=== PATIENT | male | born 1990 | race Caucasian/White ===

== ENCOUNTER 2021-07-16 16:43 | Observation (INO) ==
[2021-07-16 17:26] LABS: Appearance Urine Clear (Clear); Bilirubin Urine Negative (Negative); Blood Urine Negative (Negative); Color Urine Yellow; Glucose Urine UA Negative (Negative); Ketones Urine Negative (Negative); Leukocyte Esterase Urine Negative (Negative); Nitrite Urine Negative (Negative); Protein Urine Negative (Negative); Specific Gravity Urine 1.013 (1.000-1.030); Urobilinogen Urine Negative (Negative)
[2021-07-16] MEDS ORDERED: SODIUM CHLORIDE 0.9% 1000ML 1,000 ML IV ONE (17:40)
[2021-07-16 17:51] LABS: Amphetamines+Metham, Urine Neg (Neg); Barbiturates, Urine Neg (Neg); Benzodiazepine, Urine Neg (Neg); Cocaine, Urine Neg (Neg); MDMA (Ecstacy), Urine Neg (Neg); Methadone, Urine Neg (Neg); Opiate, Urine Neg (Neg); Phencyclidine, Urine Neg (Neg)
[2021-07-16 17:57] LABS: Basophils # (auto) 0.02 K/uL (0-0.2); Basophils % (auto) 0.2 %; Eosinophils # (auto) 0.02 K/uL (0-0.5); Eosinophils % (auto) 0.2 %; Hematocrit (blood only) 46.5 % (42-52); Hemoglobin 15.8 g/dL (14.0-18.0); Immature Granulocytes # (auto) 0.01 K/uL (0.00-0.02); Immature Granulocytes % (auto) 0.1 %; Lymphocytes % (auto) 22.5 %; Mean Corpuscular Hemoglobin 28.2 pg (25-34); Mean Corpuscular Volume 82.9 fL (80-100); Mean Platelet Volume 10.6 fL (7.4-10.4); Monocytes % (auto) 5.9 %; Neutrophils # (auto) 7.26 K/uL (1.4-6.5); Neutrophils % (auto) 71.1 %; Platelet Count 298 K/uL (130-400); RDW Coefficient of Variation 13.9 % (11.5-14.5); RDW Standard Deviation 42.5 fL (36.4-46.3); Red Blood Count 5.61 M/uL (4.7-6.1); White Blood Count 10.21 K/uL (4.8-10.8)
[2021-07-16 18:16] LABS: Albumin Level 4.5 gm/dl (3.4-5.0); Calcium 10.2 mg/dl (8.5-10.1); Creatinine Clr Calc Pharmacy 66.9 ml/min; Est GFR (African American) 68.8 ml/min; Est GFR (Non-African American) 59.3 ml/min; Potassium 3.4 mmol/L (3.5-5.1)
[2021-07-16 18:26] LABS: Albumin Globulin Ratio 1.3 (0.9-2); Bilirubin,Total 0.2 mg/dl (0.2-1); Globulin 3.4 gm/dl (2.5-4.0); Thyroid Stimulating Hormone 1.76 uIu/ml (0.300-4.500); Total Protein 7.9 gm/dl (6.4-8.2)
[2021-07-16 18:42] LABS: Acetaminophen < 2 ug/ml (10-30); Lithium 1.3 mmol/L (0.6-1.2); Salicylate 2.4 mg/dl (2.8-20)
--- NOTE | 2021-07-16 18:45 | CT Scan Report ---
CT SCAN OF THE CERVICAL SPINE CLINICAL HISTORY: Head injury. COMPARISON STUDY: No priors. TECHNIQUE: CT scan of the cervical spine is performed from the skull base to the upper thoracic spine . Images are reviewed in the axial, sagittal, and coronal planes. IV contrast was not administered fo r this examination. A dose lowering technique was utilized adhering to the principles of ALARA. CT DOSE: 1424.83 mGy.cm FINDINGS: Skeletal structures: The skeletal structures are well mineralized. There is no evidence of fracture o r subluxation involving the cervical spine. Vertebral body height and alignment are maintained. The odontoid process and lateral masses are intact. The atlantoaxial articulation is preserved. The spino us processes appear intact. Intervertebral discs: The disc spaces are well maintained. Central canal: Widely patent. Soft tissues: The prevertebral and paraspinous soft tissues are within normal limits. Calvarium: The visualized calvarium at the skull base appears intact. Brain parenchyma: Partially visualized brain parenchyma at the skull base is within normal limits. Sinuses and mastoids: The visualized paranasal sinuses are clear. The mastoid air cells are well pneu matized. Lung apices: Clear as visualized. IMPRESSION: There is no evidence of fracture or subluxation involving the cervical spine. ACT 112: Negative or not required by law. Electronically signed by: Leon Potter M.D. 07/16/2021 6:43 PM
--- NOTE | 2021-07-16 18:47 | CT Scan Report ---
CT SCAN OF THE BRAIN WITHOUT IV CONTRAST CLINICAL HISTORY: Head injury. COMPARISON STUDY: No priors. TECHNIQUE: Unenhanced axial CT scan of the brain is performed from the vertex to the skull base. A d ose lowering technique was utilized adhering to the principles of ALARA. The patient was scanned twic e due to motion artifact. FINDINGS: Brain parenchyma: The brain parenchyma is normal in appearance. There is no hemorrhage, mass effect, or evidence of acute territorial ischemia by CT criteria. Armenta-white matter differentiation is preser anali. No extra-axial fluid collection is seen. Ventricles, sulci, cisterns: Normal in configuration. Intracranial vasculature: The visualized intracranial vasculature at the skull base is normal in appe arance. Calvarium: There is no depressed calvarial fracture. Sinuses and mastoids: The visualized paranasal sinuses are clear. The mastoid air cells are well pneu matized. Orbits: The bony orbits are grossly intact. IMPRESSION: No acute intracranial abnormality. ACT 112: Negative or not required by law. Electronically signed by: Leon Potter M.D. 07/16/2021 6:46 PM
--- NOTE | 2021-07-16 18:58 | Emergency Department Note ---
History of Present Illness General Chief complaint: Mental Health Evaluation Stated complaint: SUICIDE IDEATIONS, UNTREATED BIPOLAR Time Seen by Provider: 07/16/21 16:52 Source: patient and family (Girlfriend at bedside) History of Present Illness Provider complaint: Mental health evaluation Maximum Pain Intensity: 3 31-year-old male presents emergency department for mental health evaluation. Patient brought in by his girlfriend. Girlfriend states that the patient told his father that he was going to kill himself and he has been scaring his girlfriend with comments like he is. Patient states he is "having a major mental breakdown." Patient states he wants to kill himself by overdose or by hitting himself and dying. Girlfriend reports that the patient drank Robitussin, rubbing alcohol, and Suboxone today and yesterday. Past Med/Surg History Medical History (Updated 07/16/21 @ 21:34 by Supa Calvillo) Bipolar disorder No pertinent family history Surgical History (Updated 07/16/21 @ 19:43 by Supa Calvillo) No pertinent past surgical history Social History Smoking Status: Current every day smoker Tobacco Type: E-cigarettes / Vaping Feels Safe at Home: Yes Review of Systems A total of 10 systems reviewed and were otherwise negative Physical Exam Vital Signs Vital Signs - 24 hr 07/16/21 16:46 07/16/21 17:04 07/16/21 19:00 Temperature 36.5 C Temperature Source Oral Pulse Rate 125 H Pulse Rate [Finger] 132 H 116 H Pulse Rhythm [Finger] Regular Pulse Strength [Finger] Normal Respiratory Rate 18 18 24 Respiratory Effort / Characteristics Non-Labored Non-Labored Spontaneous Non-Labored Respiratory Depth Normal Normal Normal Respiratory Pattern Regular Regular Regular Blood Pressure 138/89 Blood Pressure [Left Arm] 130/90 137/92 Blood Pressure Mean 105 Blood Pressure Mean [Left Arm] 103 107 Blood Pressure Position Sitting Blood Pressure Position [Left Arm] Sitting Pulse Oximetry 97 98 100 Oxygen Delivery Method Room Air Room Air Room Air Sepsis Recent Fever Within 48 Hours No Sepsis New/Unexplained Change in Mental Status N/A Sepsis Action Taken by Nursing No Action Required 07/16/21 20:00 07/16/21 21:00 Temperature Temperature Source Pulse Rate 112 H 103 H Pulse Rate [Finger] Pulse Rhythm [Finger] Pulse Strength [Finger] Respiratory Rate 19 24 Respiratory Effort / Characteristics Respiratory Depth Respiratory Pattern Blood Pressure 139/105 H 135/89 Blood Pressure [Left Arm] Blood Pressure Mean 116 104 Blood Pressure Mean [Left Arm] Blood Pressure Position Blood Pressure Position [Left Arm] Pulse Oximetry 99 97 Oxygen Delivery Method Sepsis Recent Fever Within 48 Hours Sepsis New/Unexplained Change in Mental Status Sepsis Action Taken by Nursing Physical Exam GENERAL: He is oriented to person, place, and time. He appears well-developed and well-nourished. He does not appear distressed. HENT: Exam performed. - Head: Normocephalic and atraumatic. - Right Ear: External ear normal. No mastoid tenderness. - Left Ear: External ear normal. No mastoid tenderness. - Mouth/Throat: The oropharynx is clear and moist. No trismus in the jaw. No dental abscesses or uvula swelling. No oropharyngeal exudate or tonsillar abscesses. EYES: Conjunctivae and EOM are normal. Pupils are equal, round, and reactive to light. Right eye exhibits no discharge. Left eye exhibits no discharge. No scleral icterus. Horizontal nystagmus present. NECK: Normal range of motion. Neck supple. No JVD present. No spinous process tenderness present. No carotid bruit present. No rigidity. No tracheal deviation and normal range of motion present. No Brudzinski's sign and no Kernig's sign noted. CV: Normal rate, regular rhythm, normal heart sounds and intact distal pulses. There is no peripheral edema. Palpable radial pulses bue. PULM/CHEST: Effort normal and breath sounds normal. No respiratory distress. No stridor. He has no wheezes. He has no rales. - Chest Wall: He exhibits no tenderness. ABD: The abdomen is soft. Bowel sounds are normal. He has no distension. No mass is present. There is no tenderness. There is no rebound, no guarding, no Montanez 's sign and no tenderness at McBurney's point. Rovsig negative. MUSC/SKEL: Normal range of motion. There is no peripheral edema, tenderness or deformity. LYMPH: No cervical adenopathy. NEURO: He is alert and oriented to person, place, and time. He has normal strength. No cranial nerve deficit or sensory deficit. Coordination and gait normal. GCS eye subscore is 4. GCS verbal subscore is 5. GCS motor subscore is 6. Cerebellar tests wnl. SKIN: Skin is warm and dry. He is not diaphoretic. PSYCH: Patient appears depressed and is reporting suicidal ideation. Course Course 1651: The patient was evaluated in room A6. A complete history and physical exam was performed Cardiac monitoring: An order was placed for continuous cardiac monitoring. The monitor shows a rate of 100 with sinus rhythm 2117: Vital signs stable. Labs show an increased osmolar gap. Mildly elevated creatinine of 1.51. [place] mildly elevated at 1.3. Discussed with poison control who recommends supportive care, no fomepizole at this time. Patient will be admitted to the [facility]ist team Dr. Cooper notified. Administered Medications Sodium Chloride (Nss 1000ml) 2,000 mls @ 999 mls/hr IV .Q2H1M ONE Stop: 07/16/21 21:35 Last Admin: 07/16/21 19:42 Dose: 999 mls/hr Documented by: [id number] Discontinued Medications Sodium Chloride (Nss 1000ml) 1,000 mls @ 999 mls/hr IV .Q1H1M ONE Stop: 07/16/21 18:40 Last Infusion: 07/16/21 18:57 Dose: 0 mls/hr Documented by: [id number] Admin: 07/16/21 17:49 Dose: 999 mls/hr Documented by: [id number] Medical Decision Making Laboratory Data Result diagrams: 07/16/21 17:37 07/16/21 17:37 Lab Results 07/16/21 07/16/21 07/16/21 Range/Units 16:55 16:55 17:11 WBC (4.8-10.8) K/uL RBC (4.7-6.1) M/uL Hgb (14.0-18.0) g/dL Hct (42-52) % MCV (80-100) fL MCH (25-34) pg MCHC (32-36) g/dL RDW Std Deviation (36.4-46.3) fL RDW Coeff of Mary (11.5-14.5) % Plt Count (130-400) K/uL MPV (7.4-10.4) fL Immature Gran % (Auto) % Neut % (Auto) % Lymph % (Auto) % [place] % (Auto) % Eos % (Auto) % Baso % (Auto) % Neut # (Auto) (1.4-6.5) K/uL Lymph # (Auto) (1.2-3.4) K/uL [place] # (Auto) (0.11-0.59) K/uL Eos # (Auto) (0-0.5) K/uL Baso # (Auto) (0-0.2) K/uL Immature Gran # (Auto) (0.00-0.02) K/uL Sodium (136-145) mmol/L Potassium (3.5-5.1) mmol/L Chloride (98-107) mmol/L Carbon Dioxide (21-32) mmol/L Anion Gap (3-11) BUN (7-18) mg/dl Creatinine (0.6-1.4) mg/dl Est Cr Clr Drug Dosing ml/min Est GFR ( Amer) ml/min Est GFR (Non-Af Amer) ml/min BUN/Creatinine Ratio (10-20) Glucose (70-99) mg/dl Osmolality (280-300) mOsm/kg Calcium (8.5-10.1) mg/dl Total Bilirubin (0.2-1) mg/dl AST (15-37) U/L ALT (12-78) U/L Alkaline Phosphatase (45-117) U/L Total Protein (6.4-8.2) gm/dl Albumin (3.4-5.0) gm/dl Globulin (2.5-4.0) gm/dl Albumin/Globulin Ratio (0.9-2) TSH (0.300-4.500) uIu/ml Urine Color Yellow Urine Appearance Clear (Clear) Urine pH 7.0 (4.5-7.5) Ur Specific [place] 1.013 (1.000-1.030) Urine Protein Negative (Negative) Urine Glucose (UA) Negative (Negative) Urine Ketones Negative (Negative) Urine Blood Negative (Negative) Urine Nitrite Negative (Negative) Urine Bilirubin Negative (Negative) Urine Urobilinogen Negative (Negative) Ur Leukocyte Esterase Negative (Negative) Salicylates (2.8-20) mg/dl Urine Opiates Screen Neg (Neg) Ur Methadone, Qual Neg (Neg) Acetaminophen (10-30) ug/ml Urine Barbiturates Neg (Neg) Ur Phencyclidine (PCP) Neg (Neg) U Amphetamin/Meth Scrn Neg (Neg) MDMA (Ecstasy) Screen Neg (Neg) U Benzodiazepines Scrn Neg (Neg) [place] (0.6-1.2) mmol/L Ur Cocaine Metabolite Neg (Neg) U Marijuana (THC) Screen Pos H (Neg) Ethyl Alcohol mg/dL (0-3) mg/dl COVID-19 Eval [email or web address] SARS-CoV-2, RNA, NAAT (NEGATIVE) 07/16/21 07/16/21 07/16/21 Range/Units 17:11 17:37 17:37 WBC 10.21 (4.8-10.8) K/uL RBC 5.61 (4.7-6.1) M/uL Hgb 15.8 (14.0-18.0) g/dL Hct 46.5 (42-52) % MCV 82.9 (80-100) fL MCH 28.2 (25-34) pg MCHC 34.0 (32-36) g/dL RDW Std Deviation 42.5 (36.4-46.3) fL RDW Coeff of Mary 13.9 (11.5-14.5) % Plt Count 298 (130-400) K/uL MPV 10.6 H (7.4-10.4) fL Immature Gran % (Auto) 0.1 % Neut % (Auto) 71.1 % Lymph % (Auto) 22.5 % [place] % (Auto) 5.9 % Eos % (Auto) 0.2 % Baso % (Auto) 0.2 % Neut # (Auto) 7.26 H (1.4-6.5) K/uL Lymph # (Auto) 2.30 (1.2-3.4) K/uL [place] # (Auto) 0.60 H (0.11-0.59) K/uL Eos # (Auto) 0.02 (0-0.5) K/uL Baso # (Auto) 0.02 (0-0.2) K/uL Immature Gran # (Auto) 0.01 (0.00-0.02) K/uL Sodium 141 (136-145) mmol/L Potassium 3.4 L (3.5-5.1) mmol/L Chloride 110 H (98-107) mmol/L Carbon Dioxide 25 (21-32) mmol/L Anion Gap 7.0 (3-11) BUN 8 (7-18) mg/dl Creatinine 1.52 H (0.6-1.4) mg/dl Est Cr Clr Drug Dosing 66.9 ml/min Est GFR ( Amer) 68.8 ml/min Est GFR (Non-Af Amer) 59.3 ml/min BUN/Creatinine Ratio 5.0 L (10-20) Glucose 64 L (70-99) mg/dl Osmolality (280-300) mOsm/kg Calcium 10.2 H (8.5-10.1) mg/dl Total Bilirubin 0.2 (0.2-1) mg/dl AST 10 L (15-37) U/L ALT 22 (12-78) U/L Alkaline Phosphatase 59 (45-117) U/L Total Protein 7.9 (6.4-8.2) gm/dl Albumin 4.5 (3.4-5.0) gm/dl Globulin 3.4 (2.5-4.0) gm/dl Albumin/Globulin Ratio 1.3 (0.9-2) TSH 1.760 (0.300-4.500) uIu/ml Urine Color Urine Appearance (Clear) Urine pH (4.5-7.5) Ur Specific [place] (1.000-1.030) Urine Protein (Negative) Urine Glucose (UA) (Negative) Urine Ketones (Negative) Urine Blood (Negative) Urine Nitrite (Negative) Urine Bilirubin (Negative) Urine Urobilinogen (Negative) Ur Leukocyte Esterase (Negative) Salicylates (2.8-20) mg/dl Urine Opiates Screen (Neg) Ur Methadone, Qual (Neg) Acetaminophen (10-30) ug/ml Urine Barbiturates (Neg) Ur Phencyclidine (PCP) (Neg) U Amphetamin/Meth Scrn (Neg) MDMA (Ecstasy) Screen (Neg) U Benzodiazepines Scrn (Neg) [place] (0.6-1.2) mmol/L Ur Cocaine Metabolite (Neg) U Marijuana (THC) Screen (Neg) Ethyl Alcohol mg/dL (0-3) mg/dl COVID-19 Eval Order SARS-CoV-2, RNA, NAAT NEGATIVE (NEGATIVE) 11/01/21 11/01/21 11/01/21 Range/Units 17:37 17:37 17:43 WBC (4.8-10.8) K/uL RBC (4.7-6.1) M/uL Hgb (14.0-18.0) g/dL Hct (42-52) % MCV (80-100) fL MCH (25-34) pg MCHC (32-36) g/dL RDW Std Deviation (36.4-46.3) fL RDW Coeff of Mary (11.5-14.5) % Plt Count (130-400) K/uL MPV (7.4-10.4) fL Immature Gran % (Auto) % Neut % (Auto) % Lymph % (Auto) % [place] % (Auto) % Eos % (Auto) % Baso % (Auto) % Neut # (Auto) (1.4-6.5) K/uL Lymph # (Auto) (1.2-3.4) K/uL [place] # (Auto) (0.11-0.59) K/uL Eos # (Auto) (0-0.5) K/uL Baso # (Auto) (0-0.2) K/uL Immature Gran # (Auto) (0.00-0.02) K/uL Sodium (136-145) mmol/L Potassium (3.5-5.1) mmol/L Chloride (98-107) mmol/L Carbon Dioxide (21-32) mmol/L Anion Gap (3-11) BUN (7-18) mg/dl Creatinine (0.6-1.4) mg/dl Est Cr Clr Drug Dosing ml/min Est GFR ( Amer) ml/min Est GFR (Non-Af Amer) ml/min BUN/Creatinine Ratio (10-20) Glucose (70-99) mg/dl Osmolality 318 H (280-300) mOsm/kg Calcium (8.5-10.1) mg/dl Total Bilirubin (0.2-1) mg/dl AST (15-37) U/L ALT (12-78) U/L Alkaline Phosphatase (45-117) U/L Total Protein (6.4-8.2) gm/dl Albumin (3.4-5.0) gm/dl Globulin (2.5-4.0) gm/dl Albumin/Globulin Ratio (0.9-2) TSH (0.300-4.500) uIu/ml Urine Color Urine Appearance (Clear) Urine pH (4.5-7.5) Ur Specific [place] (1.000-1.030) Urine Protein (Negative) Urine Glucose (UA) (Negative) Urine Ketones (Negative) Urine Blood (Negative) Urine Nitrite (Negative) Urine Bilirubin (Negative) Urine Urobilinogen (Negative) Ur Leukocyte Esterase (Negative) Salicylates 2.4 L (2.8-20) mg/dl Urine Opiates Screen (Neg) Ur Methadone, Qual (Neg) Acetaminophen < 2 L (10-30) ug/ml Urine Barbiturates (Neg) Ur Phencyclidine (PCP) (Neg) U Amphetamin/Meth Scrn (Neg) MDMA (Ecstasy) Screen (Neg) U Benzodiazepines Scrn (Neg) [place] 1.3 H (0.6-1.2) mmol/L Ur Cocaine Metabolite (Neg) U Marijuana (THC) Screen (Neg) Ethyl Alcohol mg/dL < 3.0 (0-3) mg/dl COVID-19 Eval Order SARS-CoV-2, RNA, NAAT (NEGATIVE) Imaging Data Radiologist's Impression: Cervical Spine CT 07/16/21 17:39 CT SCAN OF THE CERVICAL SPINE CLINICAL HISTORY: Head injury. COMPARISON STUDY: No priors. TECHNIQUE: CT scan of the cervical spine is performed from the skull base to the upper thoracic spine. Images are reviewed in the axial, sagittal, and coronal planes. IV contrast was not administered for this examination. A dose lowering technique was utilized adhering to the principles of ALARA. CT DOSE: 1424.83 mGy.cm FINDINGS: Skeletal structures: The skeletal structures are well mineralized. There is no evidence of fracture or subluxation involving the cervical spine. Vertebral body height and alignment are maintained. The odontoid process and lateral masses are intact. The atlantoaxial articulation is preserved. The spinous processes appear intact. Intervertebral discs: The disc spaces are well maintained. Central canal: Widely patent. Soft tissues: The prevertebral and paraspinous soft tissues are within normal limits. Calvarium: The visualized calvarium at the skull base appears intact. Brain parenchyma: Partially visualized brain parenchyma at the skull base is within normal limits. Sinuses and mastoids: The visualized paranasal sinuses are clear. The mastoid air cells are well pneumatized. Lung apices: Clear as visualized. IMPRESSION: There is no evidence of fracture or subluxation involving the cervical spine. ACT 112: Negative or not required by law. Electronically signed by: Leon Potter M.D. 07/16/2021 6:[address] 07/16/21 17:39 CT SCAN OF THE BRAIN WITHOUT IV CONTRAST CLINICAL HISTORY: Head injury. COMPARISON STUDY: No priors. TECHNIQUE: Unenhanced axial CT scan of the brain is performed from the vertex to the skull base. A dose lowering technique was utilized adhering to the principles of ALARA. The patient was scanned twice due to motion artifact. FINDINGS: Brain parenchyma: The brain parenchyma is normal in appearance. There is no hemorrhage, mass effect, or evidence of acute territorial ischemia by CT criteria. [place]ment[place]-white matter differentiation is preserved. No extra-axial fluid collection is seen. Ventricles, sulci, cisterns: Normal in configuration. Intracranial vasculature: The visualized intracranial vasculature at the skull base is normal in appearance. Calvarium: There is no depressed calvarial fracture. Sinuses and mastoids: The visualized paranasal sinuses are clear. The mastoid air cells are well pneumatized. Orbits: The bony orbits are grossly intact. IMPRESSION: No acute intracranial abnormality. ACT 112: Negative or not required by law. Electronically signed by: Leon Potter M.D. 07/16/2021 6:46 PM ECG Data Indication: + toxicologic Rate (beats per minute): 105 Rhythm: + normal sinus ECG Intervals/blocks: + Normal QRS, + Normal MT and + Normal QT-c ECG ST segments: + Normal ST segments MDM Narrative Vital signs stable. Labs show an increased osmolar gap. Mildly elevated creatinine of 1.51. [place] mildly elevated at 1.3. Discussed with poison control who recommends supportive care, no fomepizole at this time. Patient will be admitted to the [facility] hospitalist team Dr. Cooper notified. Impression & Plan Toxic effect of isopropanol, TANIYA (acute kidney injury), Depression with suicidal ideation Discharge Plan Visit Data Chief Complaint: Mental Health Evaluation Stated Complaint: SUICIDE IDEATIONS, UNTREATED BIPOLAR ED Provider: Supa Calvillo Discharge Problem: Toxic effect of isopropanol, TANIYA (acute kidney injury), Depression with suicidal ideation Patient Disposition: Admitted As Inpatient Forms Stand Alone Forms: [facility], Suicide Prevention Resources Referrals Referrals: PCP,NO [Primary Care Provider] -
[2021-07-16] MEDS ORDERED: SODIUM CHLORIDE 0.9% 1000ML 2,000 ML IV ONE (19:35)
[2021-07-16] MEDS ORDERED: SODIUM CHLORIDE 0.9% 1000ML 1,000 ML IV SCH (21:15)
[2021-07-16] MEDS ORDERED: ACETAMINOPHEN 325 MG TAB PO PRN (22:18)
--- NOTE | 2021-07-16 22:18 | History & Physical Report ---
Date of Service July 16, 2021 Assessment & Plan (1) Bipolar disorder: Plan: Raúl is a 31-year-old male with a notable history of bipolar disorder who presented to [facility] following polysubstance overdose with DXM and isopropyl alcohol in the context of suicidal ideations. Polysubstance Overdose In the context of recent suicidal ideations and severe depression/bipolar disorder Patient endorses taking approximately 8 fluid ounces of dextromethorphan as well as approximately 2 ounces of isopropyl alcohol in the morning of 07/16 --> Denies taking any other substances, including extra doses of his medications (such as lithium) Work-up as follows: Tachycardia. No fever. BP, RR normal. Pupils normal. Mild eye twitching noted. No tremor. Hyperreflexia in UE, LE. CBC, electrolytes and glucose normal. TANIYA with Cr 1.52 noted. Serum osmolality elevated to 318 without elevated anion gap LFTs, UA normal UDS significant for mildly elevated lithium level at 1.3, positive THC Cervical spine, head CT negative ECG with sinus tachycardia, otherwise normal. Normal QTc. Add ketone level Poison control contacted by ER physician --> will continue mIVF with LR @ 125 cc / hr. No other therapies indicated at this time No evidence of serotonin syndrome at present, especially in the context of large DXM consumption alongside his BuSpar, duloxetine daily medications. Mon itor. Cyproheptadine as needed. Insetting of isopropyl alcohol ingestion: Glucose normal, blood pressure normal, no evidence of GI distress. No indication for GI decontamination. Psychiatry consulted: Appreciate management insight and need for placement following current hospital stay --> anticipate 201 once medically stable One-to-one, safety tray Repeat CMP, lithium level in AM TANIYA BUN / Cr at 8/1.52 on admission -- suspect secondary to isopropyl alcohol intake, especially in context elevated serum osmolality Status post 2 L IV fluid in the ER. Continue maintenance IV fluids with LR @ 125cc/hr, monitor UOP Thien, UCr, urine microscopy ordered Bipolar disorder Patient currently on lithium, duloxetine, aripiprazole, BuSpar, and doxepin. Dosages reviewed, as per HPI At this time, we will continue holding medications in the setting of DXM overdose and until repeat lithium level in the a.m. returns Appreciate insight into restarting medications Code: Full code Diet: Regular with safety tray PPX: ambulate ad charlie Dispo: MS (2) TANIYA (acute kidney injury): (3) Toxic effect of isopropanol: (4) Depression with suicidal ideation: History of Present Illness Primary Care Provider: ADAM PCP Raúl is a 31-year-old male with a notable history of bipolar disorder who presented to [facility] following polysubstance overdose on 07/16. History is obtained primarily from patient, also corroborated through girlfriend over the phoneafter permission was received from patient. 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 He says that the anxiety and depressed moods that stem from school have been getting worse. Per his girlfriend, he has also been making suicidal threats. Apparently yesterday, he told his dad that if he did not pay rent, he was going to kill himself. This morning, patient told me he awoke and had strong feelings of wanting to . He later consumed what he recalls to be 2 ounces of rubbing alcohol, as well as a full bottle of Robitussinit is unclear whether or not this was a clear suicide attempt versus attempt for dysphoria, per patient's girlfriend. Per patient and his girlfriend, he did not take any additional doses of any of his medications. He became confused and vomited once. Was brought to the ER for further evaluation. Patient's girlfriend reports a long-term history of psychiatric issues as well as polysubstance abuse. Patient previously had alcohol abuse problems, per his girlfriend, as well as history of trying other substances. Patient's girlfriend also said that he may have taken Concerta from her; he does endorse taking amphetamine several days ago. He denies alcohol use over the last month or any other recreational drugs. He does endorse using a vape every day. He reports feeling safe at home. Patient's medication were reviewed with himself and his girlfriend. He takes lithium 450 mg twice daily, duloxetine 60 mg daily, aripiprazole 20 mg daily, BuSpar 10 mg a day, and doxepin 1 mg nightly as needed. He recently received bipolar diagnosis; type unknown. He receives care outside of [place]. He has no other medical conditions per his accounts. No other medications. In the ED, patient was found to be tachycardic but with normal blood pressure, respirations, oxygen saturation, and temperature. I laboratories were significant for an TANIYA (creatinine 1.52), elevated serum osmolality (318), normal LFTs, urine tox with presence of lithium and THC. Head imaging negative. Chest x-ray negative. Poison control was contacted, who recommended aggressive IV hydration. He received 2 L normal saline. Allergies Allergy/AdvReac Type Severity Reaction Status Date / Time No Known Allergies Allergy Verified 07/16/21 22:58 Home Medications Medication Instructions Recorded Confirmed Type aripiprazole 20 mg tablet (Abilify) 20 mg PO DAILY 07/16/21 07/16/21 History buspirone 10 mg tablet 10 mg PO BID 07/16/21 07/16/21 History doxepin 3 mg tablet 0 mg PO HS 07/16/21 07/16/21 History duloxetine 60 mg capsule,delayed 60 mg PO DAILY 07/16/21 07/16/21 History release (Cymbalta) lithium carbonate 450 mg 450 mg PO BID 07/16/21 07/16/21 History tablet,extended release Past Med/Surg History Medical History (Updated 07/16/21 @ 21:34 by Supa Calvillo) Bipolar disorder No pertinent family history Surgical History (Updated 07/16/21 @ 19:43 by Supa Calvillo) No pertinent past surgical history Social History Smoking Status: Current every day smoker Tobacco Type: E-cigarettes / Vaping Do You Dip or Chew Tobacco: No; Tobacco Cessation Education Requested by Patient: Yes Hx Alcohol Use: No Hx Substance Use: Yes Last Used Substance: Hours (ago) Preferred Language: Pashto Communication Ability: Effective Transformation Coach Required: No Beliefs That Will Affect Care: None Current Living Situation: Significant Other Current Living Situation Comment: apartment with girlfriend Feels Safe at Home: Yes Safety Concerns: Feels Safe At This Time Assistive Devices: None Review of Systems Review of Systems: as per HPI Physical Exam Physical Exam: General: Tired appearing 31-year-old male who is lying back in his hospital bed, relaxed, upon my arrival. He is freely conversive, alert and oriented. HEENT: NCAT. Eyes - Sclera are white, anicteric, and without injection. PERRL. EOMs display full ROM bilaterally. Mouth - MMM with no tonsillar edema or exudates. Neck - supple and without LAD. Cardiac: Normal rate and regular rhythm; S1 and S2 present with no murmurs, rubs, or gallops. Pulmonary: Good respiratory effort with symmetric expansion of the chest. No use of accessory muscles. Lungs were clear to auscultation bilaterally with no crackles or wheezes. Abdominal: Normoactive bowel sounds. Abdomen was soft, nondistended, and non-t brian to palpation. Extremities: Upper and lower extremities are warm and well perfused. Capillary refill assessed in UE was < 3 sec. Psych: Well-developed, well-nourished. Behavior is cooperative. He is noted to be flickering his eyes frequently. Speech rate, rhythm, and tone is normal. Speech content is somewhat limited and guarded. Endorses feelings of suicidal ideation. Unable to assess insight or judgment at this time. Neuro: - Cranial Nerves: CN I, IX, and X - not assessed. II - PERRL. III/IV/ - EOMs WNL. No nystagmus. Frequent twitching noted. V - Facial sensation in tact in all three divisions; jaw opening WNL. VII - Patient is able to smile symmetrically and keep eyes close against resistance. IX - Patient is able shrug shoulders against resistance. XI - Soft palate raises equally and appropriately while saying "ah." XII - patient is able to stick out tongue and deviate from [id number] appropriately. - Motor: UE - Finger, wrist, elbow, and shoulder strength is 5/5 bilaterally. LE - Hip, knee, and ankle strength is 5/5 bilaterally. - Sensation: UE and LE sensation to light touch is grossly intact bilaterally. - Reflexes - Biceps 3+ b/l; patellar 3+ b/l - [id number]-[id number]: WNL b/l. No dysmetria. [id number]; WNL b/l. Results & Data Results & Data ([facility]) Vital Signs (Past 12 Hours) Vital Signs Temp Pulse Pulse Resp BP BP Pulse Ox 07/16/21 21:00 103 H 24 135/89 97 07/16/21 20:00 112 H 19 139/105 H 99 07/16/21 19:00 116 H 24 137/92 100 07/16/21 17:04 132 H 18 130/90 98 07/16/21 16:46 36.5 C 125 H 18 138/89 97 Supervising Physician Co-Signing Physician Notes Patient seen and examined, chart reviewed, case discussed with Dr. Godfrey and I agree with his assessment and plan as documented above. In brief, patient is a 31yo male with recently diagnosed Bipolar disorder, polysubstance abuse history presenting after suicidal gesture with ingestion of rubbing alcohol and Robitussin. Patient states he has been dealing with mental health issues since adolescence. He was initially diagnosed as depression and was managed on several medications in the past - he states that he has been on "almost every SSRI out there". He states he has never had a typical episode of petey with racing thoughts, pressured speech, decreased need for sleep and impulsivity, however, he does admit to perseverating and becoming fixated on certain things and thoughts. He is on [place]. Uncertain if he has been trialed on other mood stabilizers in the past. Patient follows with DA Brown from [place], [place] He presents today after suicidal gesture - ingestion of rubbing alcohol and Robitussin. States that he truly wanted to end his life with these measures. Girlfriend at bedside states that the action was being "used as a bargaining chip" to get what he wanted. Patient disagreed. Denies prior history of suicidal gestures. No VH/AH Patient resting comfortably on exam, HD stable, non-toxic in appearance. Easily arousable, answers questions appropriately. Appears anxious Skin -intact, no rash HEENT - NC/AT, PERRL, MMM, Neck supple Heart - +S1/S2, regular, tachycardic, no m/r/g Lungs - CTA Abd - +BS, soft, NT/ND Ext - No edema Labs and images reviewed Serum Muk=909, Osmolar gap elevated at 30 Assessment/Plan - 31yo male with recently diagnosed Bipolar disorder presenting with suicide attempt, ingestion of isopropyl alcohol and Robitussin. Patient with osmolar gap which is most likely explained by isopropyl alcohol ingestion. Salicylates detectable at 2.4, [place]-1.3 Afebrile, HD stable, no evidence of serotonin syndrome at this time Poison control center contacted Patient verbally contracted for safety while in the hospital -IVF hydration with LR -Repeat labs in AM to include CBC, CMP, LFTs, [place] level, VBG and serum osmolality -Will hold on empiric fomipazole for now given history of isopropyl alcohol ingestion - doubt ingestion of other alcohols -Obtain outpatient records -One to one observation -Psychiatry consultation appreciated -REmainder of plan as above Resident Activity Tracking Resident Involvement: Resident Care Provided Care Provided: Adult [facility] Medicine (1) Toxic effect of isopropanol Encounter type: initial encounter Injury intent: intentional self-harm Qualified Code(s): T51.2X2A - Toxic effect of 2-Propanol, intentional self-harm, initial encounter
[2021-07-16 23:53] LABS: Creatinine Urine Random 79.1 mg/dl
[2021-07-17 00:28] LABS: Bacteria Urine Automated Negative (Negative); RBC Urine Automated 0-4 /hpf (0-4)
[2021-07-17] MEDS: LACTATED RINGER'S 1,000 ML IV SCH ×3 (01:20→14:21)
--- NOTE | 2021-07-17 06:26 | Billing Data ---
Date of Service July 16, 2021 Coding Level of Care Code INT OBSERVATION CARE 50M LVL 2
[2021-07-17 07:16] LABS: Base Excess VBG 1.3 mEq/L; Oxygen Saturation VBG 93.1 %; pH VBG 7.4 (7.36-7.41)
[2021-07-17 07:22] LABS: Basophils # (auto) 0.04 K/uL (0-0.2); Basophils % (auto) 0.3 %; Eosinophils # (auto) 0.17 K/uL (0-0.5); Eosinophils % (auto) 1.3 %; Hematocrit (blood only) 39.4 % (42-52); Hemoglobin 12.9 g/dL (14.0-18.0); Immature Granulocytes # (auto) 0.03 K/uL (0.00-0.02); Immature Granulocytes % (auto) 0.2 %; Lymphocytes # (auto) 3.22 K/uL (1.2-3.4); Mean Corpuscular Hemoglobin 27.7 pg (25-34); Mean Corpuscular Hgb Conc 32.7 g/dL (32-36); Mean Corpuscular Volume 84.7 fL (80-100); Mean Platelet Volume 10.5 fL (7.4-10.4); Monocytes # (auto) 0.99 K/uL (0.11-0.59); Monocytes % (auto) 7.7 %; Neutrophils # (auto) 8.42 K/uL (1.4-6.5); Neutrophils % (auto) 65.5 %; Platelet Count 238 K/uL (130-400); RDW Coefficient of Variation 14.1 % (11.5-14.5); RDW Standard Deviation 43.5 fL (36.4-46.3); Red Blood Count 4.65 M/uL (4.7-6.1); White Blood Count 12.87 K/uL (4.8-10.8)
[2021-07-17] MEDS ORDERED: FLUARIX QUADRIVALENT 0.5 ML SYR IM ONE (08:00)
[2021-07-17 08:05] LABS: Albumin Globulin Ratio 1.1 (0.9-2); BUN Creatinine Ratio 5.2 (10-20); Bilirubin,Total 0.4 mg/dl (0.2-1); Calcium 8.9 mg/dl (8.5-10.1); Creatinine Clr Calc Pharmacy 87.6 ml/min; Est GFR (African American) 95.4 ml/min; Est GFR (Non-African American) 82.3 ml/min; Globulin 2.7 gm/dl (2.5-4.0); Total Protein 5.7 gm/dl (6.4-8.2)
--- NOTE | 2021-07-17 08:54 | Electrocardiogram Report ---
Test Reason : Blood Pressure : / mmHG Vent. Rate : 105 BPM Atrial Rate : 105 BPM P-R Int : 136 ms QRS Dur : 090 ms QT Int : 332 ms P-R-T Axes : 064 044 063 degrees QTc Int : 438 ms Sinus tachycardia Otherwise normal ECG No previous ECGs available Confirmed by Elmer Baxter ([id number]) on 07/17/2021 8:54:10 AM Referred By: REFERRED SELF Confirmed By:Mono Baxter
[2021-07-17] MEDS: NICOTINE 14 MG/24 HR PATCH TD SCH (12:28)
[2021-07-17] MEDS: DULoxetine HCL 60 MG CAP PO SCH (12:28)
--- NOTE | 2021-07-17 14:26 | Psychiatric Consultation ---
Date of Consultation July 17, 2021 Impression / Recommendations Impression The patient is a 31 year old man with a history of BPAD, depression, polysubstance use and one prior psychiatric hospitalization (1.5 years ago) who was admitted for a suicide attempt via ingestion of DXM and isopropyl alcohol. Diagnostically consistent with unspecified depression differential includes MDD versus bipolar depression vs substance-induced depression. He likely also meets criteria for substance use disorder given frequent use of polysubstances to cope with his emotional distress. In terms of risk he is deemed to be at high acute risk of harm to self given mood symptoms, suicide attempt via lethal potential, psychosocial stressors and substance use. He is currently voluntary for psychiatric hospitalization once he is medically cleared. He would benefit most from a dual diagnosis psychiatric hospitalization where he can receive concurrent treatment for both his depression as well his substance use. Currently he is deemed unstable and requires psychiatric hospitalization for diagnostic clarification, safety and stabilization, medication management and development of further coping skills. In terms of his BUDGET EXAMINER medications-the main concern would be serotonin syndrome with restarting cymbalta/buspar/doxepin but it appears he is showing no symptoms of SS and tolerated cymbalta being restarted today. Given that his renal function seems to have improved and lithium level is within therapeutic range it is appropriate to restart lithium at BUDGET EXAMINER dose. Also reasonable to restart his abilify and buspar tomorrow if he remains stable from a medical perspective. (1) Polysubstance overdose: (2) Depression with suicidal ideation: (3) Substance use: -1:1 for safety, may not leave AMA without psychiatric clearance -Voluntary for psychiatric treatment once medically cleared -Would benefit most from dual-diagnosis inpatient program -Ok to restart BUDGET EXAMINER medications tomorrow with exception of doxepin (continue to hold this given caution to restart too many serotoninergic medications in setting of recent DXM ingestion): [place] 450 mg twice daily Duloxetine 60 mg daily Aripiprazole 20 mg daily (restart tomorrow) BuSpar 10 mg twice daily (restart tomorrow) Risk Factors Assessment Do You Have Access To A Gun?: No Psych History Identifying Data 31 yo man with a history of persistent depression, BPAD and polysubstance use who was admitted medically following a suicide attempt via ingestion of DXM and isopropyl alcohol. Psychiatry was consulted for risk assessment, disposition planning and medication recommendations. Chief Complaint "I just need to the numb the pain". History of Present Illness Raúl reports worsening depression over the last two weeks in the context of increased stress from school and relationship stress. He endorses a long history of depression and history of petey with depression that tends to predominant and "comes in waves". Endorses depressive symptoms of poor sleep, low energy, low mood, decreased concentration, decreased motivation, anhedonia, self-harm via hitting himself in the head and SI which emerged in the context of this. He feels his attempt was very impulsive and he sought help right away and is glad to be alive. He would like psychiatric inpatient treatment as he feels he needs help to treat the depression. Pertinent psych ROS notable for: hx petey, no hx prior suicide attempts, hx multiple past medication trials ("everything"), hx trauma, no access to guns. Endorses significant polysubstance use, noting that he will use whatever is available to help "numb the pain" he feels in his brain. He currently takes lithium 450mg BID, cymbalta 60 mg qd, abilify 20 mg qd, doxepin 2 mg qhs prn and buspar 10mg bid which is managed by his psychiatric provider in [place], [place]. he also sees a therapist twice a month via teletherapy. Reports he has been taking all of his medications regularly. Further history per psych liason note 07/17/21: "Patient is a 31 year old single male, orginally from [facility]. Has been living with his girlfriend in [place]. States he has been doing well, until his girlfriend's mental health took a turn, which snowballed into how he was feeling. States he was recently diagnoses with bipolar and has been upset. States he just started seeing a psychiatrist, DA Booth, at [facility], patient's next appointment with her is on 08/16 at 3:30. He is also established with a therapist, Marion, and his next appointment with her is 07/26 at 9:30, both appointments are by phone. States he has been prescribed lithium 450 mg bid, doxepine 60 mg daily, abilfy 20 mg daily, and buspar 10 mg bid. States he usually remembers to take his medications. When asked patient's previous medications, he states "I'm gonna say none, so this can be over." Explained the reason for asking questions and obtaining history, he replies, "I've been on everything under the sun, every SSRI." States he is tired and is feeling really low, reports interrupted non-restorative sleep, even with sleep, is always tired. Decreased desire in any activities, feels depressed and hopeless, increased appetite. States he feels bad about his life every day, struggles with concentration. States he has been thinking of suicide, but didn't have a concrete plan until yesterday, when he acted on his impulsive thoughts to overdose. States this was his only suicide attempt, has been to [facility] 1.5 years ago. States he has been hitting himself in the head for the last week, does not believe he has done it before, however retracted the statement, being unsure. Both mother and father have a history of depression, father was an alcoholic and have addiction issues. Denies any family history of suicide attempts. Had a younger brother killed in a MVA 6 years ago. (his brother was 20). 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 Currently he reports straight A's, however he said there is a test in 4 days which he is not prepared for and knows he "will flunk out of college". Eye contact is intermittent, appears anxious and minimally cooperative. Reports a long history of substance abuse, admits to going to rehab. 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 Denies any substance use in the last month, but admits to drinking rubbing alcohol and taking cough medicine with intent to kill self. Patient is willing for admission for inpatient psych once medically cleared." Past Psychiatric History Previous Psych History: see HPI Previous Psych Admissions: 1.5 years ago at [facility] Do You Have Access To A Gun?: No History of Previous Suicide Attempt: No Past Medication Trials: many including multiple SSRIs Allergies Allergy/AdvReac Type Severity Reaction Status Date / Time No Known Allergies Allergy Unverified 07/17/21 07:45 Home Medications Medication Instructions Recorded Confirmed Type duloxetine 60 mg capsule,delayed 60 mg PO QAM 02/11/21 02/11/21 History release (Cymbalta) lithium carbonate 300 mg capsule 300 mg PO BID 02/11/21 02/11/21 History mirtazapine 15 mg tablet (Remeron) 15 mg PO HS 02/11/21 02/11/21 History aripiprazole 20 mg tablet (Abilify) 20 mg PO DAILY 07/16/21 07/16/21 History buspirone 10 mg tablet 10 mg PO BID 07/16/21 07/16/21 History doxepin 3 mg tablet 0 mg PO HS 07/16/21 07/16/21 History duloxetine 60 mg capsule,delayed 60 mg PO DAILY 07/16/21 07/16/21 History release (Cymbalta) lithium carbonate 450 mg 450 mg PO BID 07/16/21 07/16/21 History tablet,extended release Family History depression in family Substance Abuse History see HPI Personal History Employment Status: Student Beliefs That Will Affect Care: None Patient History Medical History Bipolar disorder Bowel obstruction Meckel's diverticulum perforation No pertinent family history Surgical History No pertinent past surgical history Social History Smoking Status: Current every day smoker Tobacco Type: E-cigarettes / Vaping Hx Alcohol Use: No Hx Substance Use: Yes Last Used Substance: Hours (ago) Preferred Language: Yoruba Communication Ability: Effective Nursing Staffing Coordinator Required: No Beliefs That Will Affect Care: None Current Living Situation: Significant Other Current Living Situation Comment: apartment with girlfriend Feels Safe at Home: Yes Assistive Devices: None Physical Exam Psychiatric: Orientation: alert and oriented x 3 Apperance: appropriately dressed and appropriately groomed Eye Contact: good eye contact Motor Behavior: no abnormal motor movements Speech: normal rate/rhythm/volume of speech Affect: + constricted affect Mood: + depressed mood, + anxious mood and + irritable mood Thought Process: goal directed thought process Thought Content: reality based without delusions Suicidal Thoughts: denies suicidal thoughts Homicidal Thoughts: denies homicidal thoughts Hallucinations: no auditory hallucinations and no visual hallucinations Cognition: recent memory grossly intact, remote memory grossly intact, attention grossly intact and language grossly intact Estimated Intelligence: consistent with education level Insight: + fair insight Judgement: + fair judgement Vital Signs (Past 24 Hours): Last Vital Signs Temp 36.7 C 07/17/21 07:57 Pulse 69 07/17/21 07:57 Resp 16 07/17/21 07:57 BP 124/80 07/17/21 07:57 Pulse Ox 96 07/17/21 07:57 Review of Systems All systems reviewed & are unremarkable except as noted in HPI & below Results & Data (PSY) Laboratory Results elevated WBC, low RBC, Cr nml, Li trough 0.4 Diagnostic Findings normal QTc on EKG Medications Administered Acetaminophen (Acetaminophen 325 Mg Tab) 650 mg PO Q4H PRN PRN Reason: pain/fever Stop: 08/15/21 22:17 Last Admin: 07/17/21 01:19 Dose: 650 mg Documented by: [id number] Duloxetine HCl (Duloxetine Hcl 60 Mg Cap) 60 mg PO QAM [facility] Stop: 08/16/21 11:59 Last Admin: 07/17/21 12:28 Dose: 60 mg Documented by: [id number] Lactated Ringer's (Lr) 1,000 mls @ 75 mls/hr IV .[id number] ANCELMO Stop: 07/17/21 15:10 Last Admin: 07/17/21 14:21 Dose: 75 mls/hr Documented by: [id number] Infusion: 07/17/21 10:12 Dose: 0 mls/hr Documented by: [id number] Admin: 07/17/21 04:39 Dose: Not Given Documented by: [id number] Admin: 07/17/21 01:20 Dose: 125 mls/hr Documented by: [id number] Nicotine (Nicotine 14 Mg/24 Hr Patch) 14 mg TD QAM ANCELMO Stop: 08/16/21 11:59 Last Admin: 07/17/21 12:28 Dose: 14 mg Documented by: [id number] Coding Level of Care Code 99644 Inpt Consult Level 3 Diagnoses Polysubstance overdose T50.901A Depression with suicidal ideation F32.A; R45.851 Substance use F19.90 Time Spent (min) 35
--- NOTE | 2021-07-17 14:48 | Hospitalist Progress Note ---
Date of Service July 17, 2021 Assessment & Plan (1) Polysubstance overdose: Plan: Polysubstance ingestion -Impulsive suicide attempt with Robitussin/rubbing alcohol ingestion precipitated by burgeoning stress, existent bipolar disorder -Medical workup- serum osmolality elevated to 318 without anion gap, Cr 1.52, otherwise neg UA, BMP, CBC, EKG, CT head, -No concern for serotonin syndrome/malignant hyperthermia at this time with reassuring vitals and benign physical exam -Continue IVF, rate down to 75 ccs/hr -Currently on 1:1, soft tray discontinued -Appreciate psychiatric recommendations -No active or passive SI at this time - Medically stable TANIYA -Cr 1.52 on admission, likely due to alcohol and Robitussin ingestion -S/p IV repletion in ED and mIVF, now 1.16 -Largely resolved, encourage PO fluid intake -Will d/c IVF tonight Bipolar disorder -Med regimen includes lithium, duloxetine, Abilify, buspar, doxepin PRN for sleep -[place] 450 mg BID restarted today given low lithium level from admission -Duloxetine 60 mg daily restarted today given low concern for serotonin syndrome at this time -Will hold other psychotropic medications pending transfer to psychiatric unit and evaluation by psychiatry Code: Full code Diet: Regular PPX: ambulate ad charlie Dispo: Discharge to psych inpatient Admission and Anticipated Discharge Date Admission Date: July 16, 2021 Supervising Physician Co-Signing Physician Notes Patient seen and examined with PGY 1, Dr. Queen. Agree with history, exam findings, assessment and plan of care as outlined. Raúl is a 31-year-old male with history of bipolar disorder admitted following polysubstance ingestion. Still having significant anxiety and depression. There are multiple stressors related to this. Vital signs and nursing notes reviewed Well-appearing. Nontoxic. Heart with a regular rate and rhythm. No murmur. Lungs are clear to auscultation in all lung [place]. Mood and affect are congruent. He is anxious. Labs and imaging reviewed. 1. Polysubstance ingestion. No concern for serotonin syndrome or malignant hyperthermia. He is stable from a medical perspective for transfer to psychiatric facility or unit. 2. TANIYA. Improved after IV fluids. 3. Bipolar disorder. We have restarted his lithium and his duloxetine. We can restart his Abilify and BuSpar tomorrow. Hold off on restarting doxepin for now. Disposition: He is medically stable for transfer to psychiatric facility or unit. Discussed case with psychiatric liaison and psychiatric physician. Subjective Pt feels physically well, denying any acute complaints at this time. Still endorsing significant anxiety and depression regarding school- has a test in 4 days and concerned he'll fail out of his program. Open to psychiatric admission, inquired as to whether he can receive accommodations after discharge so that his career isn't disadvantaged. Has reflected on his suicide attempt and states it was impulsive and he does not wish to take his own life for fear of devastating his loved ones. Review of Systems Review of Systems: +Anxiety, depression Physical Exam Physical Exam: General: well-appearing male laying comfortably in bed HEENT: anicteric sclera, moist mucous membranes, EOMI Cardiac: RRR, normal S1 S2, no murmurs noted Resp: CTAB, unlabored respirations Abd: soft, nondistended, nontender Skin: warm and dry Neuro: grossly alert and oriented without focal motor deficits Psych: normal mood and affect, +anxiety, no SI/HI Results & Data Results & Data ([facility]) Vital Signs (Past 12 Hours) Vital Signs Temp Pulse Resp BP Pulse Ox 07/17/21 07:57 36.7 C 69 16 124/80 96 Resident Activity Tracking Resident Involvement: Resident Care Provided Care Provided: Adult Hospital Medicine
[2021-07-17] MEDS: LITHIUM CARBONATE 450 MG TABCR PO SCH (20:19)
[2021-07-18] MEDS ORDERED: DULoxetine HCL 60 MG CAP PO SCH (09:00)
[2021-07-18] MEDS ORDERED: busPIRone 5 MG TAB PO SCH (09:00)
[2021-07-18] MEDS ORDERED: ARIPiprazole 10 MG TAB PO SCH (09:00)
[2021-07-18] MEDS ORDERED: NICOTINE 14 MG/24 HR PATCH TD SCH (09:00)
[2021-07-18] MEDS ORDERED: hydrOXYzine HCl 25 MG TAB PO PRN (09:17)
[2021-07-18 09:19] LABS: Hematocrit (blood only) 44.3 % (42-52); Hemoglobin 14.6 g/dL (14.0-18.0); Mean Corpuscular Hemoglobin 27.7 pg (25-34); Mean Corpuscular Volume 83.9 fL (80-100); Mean Platelet Volume 10.7 fL (7.4-10.4); Platelet Count 273 K/uL (130-400); RDW Coefficient of Variation 13.8 % (11.5-14.5); RDW Standard Deviation 42.4 fL (36.4-46.3); Red Blood Count 5.28 M/uL (4.7-6.1); White Blood Count 9.68 K/uL (4.8-10.8)
[2021-07-18 09:42] LABS: Calcium 9.6 mg/dl (8.5-10.1); Creatinine Clr Calc Pharmacy 114.2 ml/min; Est GFR (African American) 130.2 ml/min; Est GFR (Non-African American) 112.3 ml/min; Potassium 4.1 mmol/L (3.5-5.1)
[2021-07-18] MEDS: DULoxetine HCL 60 MG CAP PO SCH (10:05)
[2021-07-18] MEDS: NICOTINE 14 MG/24 HR PATCH TD SCH (10:05)
[2021-07-18] MEDS: LITHIUM CARBONATE 450 MG TABCR PO SCH (10:06)
--- NOTE | 2021-07-18 12:17 | Hospitalist Progress Note ---
Date of Service July 18, 2021 Assessment & Plan (1) Polysubstance overdose: Plan: Polysubstance ingestion -Impulsive suicide attempt with Robitussin/rubbing alcohol ingestion precipitated by burgeoning stress, existent bipolar disorder -Medical workup- serum osmolality elevated to 318 without anion gap, Cr 1.52, otherwise neg UA, BMP, CBC, EKG, CT head, -No concern for serotonin syndrome/malignant hyperthermia at this time with reassuring vitals and benign physical exam -Currently on 1:1, soft tray discontinued. No active or passive SI at this time -Medically stable for discharge to psych -Psychiatry consult: recommended admission after medical stabilization. Transfer to inpatient psych held up today due to minor elevation of WBC from 07/17 labs but today's CBC and BMP entirely normal. Seeking placement for psych admission, likely transfer tomorrow. TANIYA -Cr 1.52 on admission, likely due to alcohol and Robitussin ingestion -S/p IV repletion in ED and mIVF, now 1.16 -Resolved, encourage PO fluid intake Bipolar disorder -Med regimen includes lithium, duloxetine, Abilify, buspar, doxepin PRN for sleep -[place] 450 mg BID restarted yesterday given low lithium level from admission -Duloxetine 60 mg daily restarted yesterday given low concern for serotonin syndrome at this time -Abilify and buspar restarted today per psych, still holding doxepin Code: Full code Diet: Regular PPX: ambulate ad charlie Dispo: Discharge to psych inpatient likely tomorrow Admission and Anticipated Discharge Date Admission Date: July 16, 2021 Supervising Physician Co-Signing Physician Notes Patient seen and examined independently of PGY 1, Dr. Queen. Agree with history, exam findings, assessment and plan of care as outlined. Raúl is a 31-year-old male with history of bipolar disorder admitted following polysubstance ingestion. Still having significant anxiety today. He is already on Buspar and does not feel that this was helpful for his anxiety. He has used hydroxyzine as needed in the past which was somewhat helpful. There are multiple stressors related to this. Vital signs and nursing notes reviewed Well-appearing. Nontoxic. Mood and affect are congruent. He is anxious. Labs and imaging reviewed. 1. Polysubstance ingestion. No concern for serotonin syndrome or malignant hyperthermia. He is stable from a medical perspective for transfer to psychiatric facility or unit. 2. TANIYA. Improved after IV fluids. 3. Bipolar disorder. We have restarted his lithium and his duloxetine yesterda y. Restarted Abilify and BuSpar tomorrow. Hold off on restarting doxepin for now. Hydroxyzine PRN for anxiety. Disposition: He is medically stable for transfer to psychiatric facility or unit. Bed available at [facility] in [place]. 201 signed. Subjective Pt still feeling physically well, also reports some minor improvement in his anxiety and depression. Has been reflecting more on the events of his hospitalization, still willing for psychiatric admission. Review of Systems Review of Systems: +Less anxiety and depression Physical Exam Physical Exam: General: well-appearing male laying comfortably in bed HEENT: anicteric sclera, moist mucous membranes, EOMI Cardiac: RRR, normal S1 S2, no murmurs noted Resp: CTAB, unlabored respirations Abd: soft, nondistended, nontender Skin: warm and dry Neuro: grossly alert and oriented without focal motor deficits Psych: normal mood and affect, +anxiety, no SI/HI Results & Data Results & Data ([facility]) Vital Signs (Past 12 Hours) Vital Signs Temp Pulse Resp BP Pulse Ox 07/18/21 00:10 36.5 C 78 18 122/80 97 Resident Activity Tracking Resident Involvement: Resident Care Provided Care Provided: Adult Hospital Medicine
--- NOTE | 2021-07-18 17:19 | Discharge Summary ---
Date of Service July 18, 2021 Admission HPI Per Admitting Provider Raúl is a 31-year-old male with a notable history of bipolar disorder who presented to [facility] following polysubstance overdose on 07/16. History is obtained primarily from patient, also corroborated through girlfriend over the phoneafter permission was received from patient. 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 He says that the anxiety and depressed moods that stem from school have been getting worse. Per his girlfriend, he has also been making suicidal threats. Apparently yesterday, he told his dad that if he did not pay rent, he was going to kill himself. This morning, patient told me he awoke and had strong feelings of wanting to . He later consumed what he recalls to be 2 ounces of rubbing alcohol, as well as a full bottle of Robitussinit is unclear whether or not this was a clear suicide attempt versus attempt for dysphoria, per patient's girlfriend. Per patient and his girlfriend, he did not take any additional doses of any of his medications. He became confused and vomited once. Was brought to the ER for further evaluation. Patient's girlfriend reports a long-term history of psychiatric issues as well as polysubstance abuse. Patient previously had alcohol abuse problems, per his girlfriend, as well as history of trying other substances. Patient's girlfriend also said that he may have taken Concerta from her; he does endorse taking amphetamine several days ago. He denies alcohol use over the last month or any other recreational drugs. He does endorse using a vape every day. He reports feeling safe at home. Patient's medication were reviewed with himself and his girlfriend. He takes lithium 450 mg twice daily, duloxetine 60 mg daily, aripiprazole 20 mg daily, BuSpar 10 mg a day, and doxepin 1 mg nightly as needed. He recently received bipolar diagnosis; type unknown. He receives care outside of [place]. He has no other medical conditions per his accounts. No other medications. In the ED, patient was found to be tachycardic but with normal blood pressure, respirations, oxygen saturation, and temperature. I laboratories were significant for an TANIYA (creatinine 1.52), elevated serum osmolality (318), normal LFTs, urine tox with presence of lithium and THC. Head imaging negative. Chest x-ray negative. Poison control was contacted, who recommended aggressive IV hydration. He received 2 L normal saline. Admission Exam Per Admitting Provider General: Tired appearing 31-year-old male who is lying back in his hospital bed, relaxed, upon my arrival. He is freely conversive, alert and oriented. HEENT: NCAT. Eyes - Sclera are white, anicteric, and without injection. PERRL. EOMs display full ROM bilaterally. Mouth - MMM with no tonsillar edema or exudates. Neck - supple and without LAD. Cardiac: Normal rate and regular rhythm; S1 and S2 present with no murmurs, rubs, or gallops. Pulmonary: Good respiratory effort with symmetric expansion of the chest. No use of accessory muscles. Lungs were clear to auscultation bilaterally with no crackles or wheezes. Abdominal: Normoactive bowel sounds. Abdomen was soft, nondistended, and non- tender to palpation. Extremities: Upper and lower extremities are warm and well perfused. Capillary refill assessed in UE was < 3 sec. Psych: Well-developed, well-nourished. Behavior is cooperative. He is noted to be flickering his eyes frequently. Speech rate, rhythm, and tone is normal. Speech content is somewhat limited and guarded. Endorses feelings of suicidal ideation. Unable to assess insight or judgment at this time. Neuro: - Cranial Nerves: CN I, IX, and X - not assessed. II - PERRL. III/IV/ - EOMs WNL. No nystagmus.Frequent twitching noted.V - Facial sensation in tact in all three divisions; jaw opening WNL. VII - Patient is able to smile symmetrically and keep eyes close against resistance. IX - Patient is able shrug shoulders against resistance. XI - Soft palate raises equally and appropriately while saying "ah." XII - patient is able to stick out tongue and deviate from [id number] appropriately. - Motor: UE - Finger, wrist, elbow, and shoulder strength is 5/5 bilaterally. LE - Hip, knee, and ankle strength is 5/5 bilaterally. - Sensation: UE and LE sensation to light touch is grossly intact bilaterally. - Reflexes - Biceps 3+ b/l; patellar 3+ b/l - [id number]: WNL b/l. No dysmetria. [id number]; WNL b/l. Principal Diagnosis Suicide attempt via polysubstance ingestion Discharge Exam General: well-appearing male laying comfortably in bed HEENT: anicteric sclera, moist mucous membranes, EOMI Cardiac: RRR, normal S1 S2, no murmurs noted Resp: CTAB, unlabored respirations Abd: soft, nondistended, nontender Skin: warm and dry Neuro: grossly alert and oriented without focal motor deficits Psych: normal mood and affect, +anxiety, no SI/HI Discharge Data Allergies Allergy/AdvReac Type Severity Reaction Status Date / Time No Known Allergies Allergy Unverified 07/17/21 07:45 Consultations 07/16/21 21:07 ED Decision to Admit Stat 07/16/21 22:18 Consult Psychiatry Routine Ordered Studies 07/16/21 17:39 CT cervical spine wo con Stat CT head/brain wo con Stat Hospital Course (1) Polysubstance overdose: Admitted on 07/16, discharged on 07/18 Polysubstance ingestion -Impulsive suicide attempt with Robitussin/rubbing alcohol ingestion precipitated by burgeoning stress, existent bipolar disorder -Medical workup- serum osmolality elevated to 318 without anion gap, Cr 1.52, otherwise neg UA, BMP, CBC, EKG, CT head, -No concern for serotonin syndrome/malignant hyperthermia at this time with reassuring vitals and benign physical exam -Was on 1:1 for most of stay. No active or passive SI at time of discharge -Medically stable for discharge to psych -Discharged to [facility] inpatient psychiatric unit in [place] on 07/18 TANIYA -Cr 1.52 on admission, likely due to alcohol and Robitussin ingestion -S/p IV repletion in ED and mIVF, now 1.16 -Resolved, encourage PO fluid intake for after discharge Bipolar disorder -Med regimen includes lithium, duloxetine, Abilify, buspar, doxepin PRN for sleep -[place] 450 mg BID restarted yesterday given low lithium level from admission -Duloxetine 60 mg daily restarted yesterday given low concern for serotonin syndrome at this time -Abilify and buspar restarted today per psych, still holding doxepin -Hydroxyzine added as PRN for anxiety Total Time Total Time Spent Total Time Spent (In Minutes): 20 Discharge Plan Discharge Items Patient Disposition: Transfer [facility] Reason For Visit: polysubstance overdose, possible suicide attempt Discharge Diagnosis: intentional overdose Activity: Per Instructions section Non-emergency contact: Primary Care Provider, Psychiatrist and Therapist Call non-emergency contact if: you have any medication questions and your symptoms worsen Follow-up/Referrals: PCP,NO [Primary Care Provider] - Diet: Regular Addtl Attending Provider Instructions: You were admitted to the hospital for monitoring after ingestion of rubbing alcohol and Robitussin. You were admitted for monitoring of your heart and kidneys. This mix of substances caused an injury to your kidneys, that resolved with IV fluids. You started to feel better and you were felt safe for discharge to an inpatient behavioral health facility. You may resume all of your medications from home, EXCEPT your doxepin. You should hold off on taking doxepin until you are evaluated by a Psychiatrist at the inpatient facility. If you have any feelings of intent to harm yourself or someone else, please call 911 for help. You can also call the National Suicide Hotline if you are ever in crisis; the phone number is 235-265-1048. There is also a text chat feature with someone available 07/04 at [email or web address] Please call your primary care provider to schedule an appointment for follow up of your hospitalization. If you do not have a primary care provider, you can call [phone] for an appointment to establish care with Dr. Owen Queen, who took care of you during your hospital stay. Pending Studies at Discharge: No Stand-Alone Forms: My [facility] Medications and DC Order Prescriptions: Continued duloxetine [Cymbalta] 60 mg Capsule,Delayed Release(/Ec) 60 mg PO QAM RF: 0 lithium carbonate 450 mg Tablet Extended Release 450 mg PO BID RF: 0 buspirone [BuSpar] 10 mg Tablet 10 mg PO BID RF: 0 aripiprazole [Abilify] 20 mg Tablet 20 mg PO DAILY RF: 0 Discontinued lithium carbonate 300 mg Capsule 300 mg PO BID RF: 0 mirtazapine [Remeron] 15 mg Tablet 15 mg PO HS RF: 0 duloxetine [Cymbalta] 60 mg Capsule,Delayed Release(/Ec) 60 mg PO DAILY RF: 0 doxepin 3 mg Tablet 0 mg PO HS RF: 0 Discharge Orders: Discharge Order (Routine); Ordered 07/18/21 Ordered By: Mary Carmen Morfin/Other Patient Handouts: Understanding Mood Disorders Admission Data Admit Date/Time: 07/16/21 22:18 Attending Provider: Mary Kay Garcia Admit Provider: Florentino Godfrey Primary Care Provider: PCP,NO Other Providers: Tejal Cooper ; Terri North ; Anneliese Elder ; Savannah Drake ; Juan José Garza Supervising Physician Co-Signing Physician Notes Patient seen and examined independently PGY 1, Dr. Queen. Agree with history, exam findings, assessment and plan of care as outlined. Raúl is a 31-year-old male with history of bipolar disorder admitted following polysubstance ingestion. Still having significant anxiety today. He is already on Buspar and does not feel that this was helpful for his anxiety. He has used hydroxyzine as needed in the past which was somewhat helpful. There are multiple stressors related to this. Vital signs and nursing notes reviewed Well-appearing. Nontoxic. Mood and affect are congruent. He is anxious. Labs and imaging reviewed. 1. Polysubstance ingestion. No concern for serotonin syndrome or malignant hyperthermia. He is stable from a medical perspective for transfer to psychiatric facility or unit. 2. TANIYA. Improved after IV fluids. 3. Bipolar disorder. We have restarted his lithium and his duloxetine yesterday. Restarted Abilify and BuSpar tomorrow. Hold off on restarting doxepin for now. Hydroxyzine PRN for anxiety. Disposition: He is medically stable for transfer to psychiatric facility or unit. Bed available at [facility] in [place]. 201 signed. I personally spent 20 minutes discharge planning for this patient. Resident Activity Tracking Resident Involvement: Resident Care Provided Care Provided: Adult Hospital Medicine
[2021-07-19 06:59] LABS: Marijuana Quant, GCMS Urine 68 ng/mL (<5)
== END 2021-07-18 19:18 ==
LOC: 3E 16:43 → ED 16:43 → MERGE 22:18 → SUATTDRO 22:18 → 3E 07-17 00:29

== ENCOUNTER 2022-12-20 20:26 | Inpatient (IN) ==
--- NOTE | 2022-12-20 20:46 | Emergency Department Note ---
Impression & Plan Suicidal ideation, Bipolar disorder ED Provider Note NAME: JOURDAN PERAZA AGE: 32 SEX: M : 1990 ARRIVES VIA: [employer] INFORMANT: [Patient][police] ED PROVIDER(S): [Leon Guo MD] CHIEF COMPLAINT: Mental health evaluation HISTORY OF PRESENT ILLNESS: The patient is a 32-year-old male with a history of bipolar disease. He has been hospitalized on the psychiatric floors previously for depression. No history of previous suicidal attempt. The patient is currently employed. The patient states that he has been having some financial issues and has been arguing with his girlfriend. They got into a pretty good fight today and he drank alcohol. He thinks he made some comments that had her quite upset and the police showed up at his door. The patient states that he has no intent to harm himself or anyone else. He cannot recall what was said earlier because he was intoxicated. He does admit that he may have threatened self-harm. As per the police, the patient made comments that if his girlfriend did not talk with him further, he would get a knife and slit his wrists. By report, a 302 petition is being initiated. PMHx/PSHx: See Below SOCIAL HISTORY: See Below. PHYSICAL EXAM: GENERAL: Patient is in no acute distress. Slightly anxious but cooperative HEENT: No acute trauma, normocephalic atraumatic, mucous membranes moist, no nasal congestion. NECK: No stridor, no adenopathy, no meningismus, trachea is midline. LUNGS: Clear to auscultation bilaterally, no wheeze, no rhonchi, breath sounds equal. HEART: Without murmurs gallops or rubs, regular rate and rhythm. ABDOMEN: Soft, nontender, bowel sounds positive, no peritonitis. EXTREMITIES: No cyanosis or edema, full range of motion of all the joints without pain or difficulty, no signs for acute trauma. NEUROLOGIC: Oriented x 3, no acute motor or sensory deficits, no focal weakness. SKIN: No rash, no jaundice, no diaphoresis. Psychiatric: Cooperative, voluntary, slightly anxious, denies active suicidality or intent to harm self or others. Admits to making some threatening comments earlier. DIFFERENTIAL DIAGNOSIS: Psychosis, alcohol or drug abuse, depression, anxiety, suicidality, electrolyte imbalance, among others. EMERGENCY DEPARTMENT COURSE/PROCEDURES: Prior/Outside records reviewed: Previous ED visit notes. MEDICAL DECISION MAKING: There is no leukocytosis or worrisome anemia. There is a normal platelet count. No renal failure or significant electrolyte abnormality. No concerning liver enzyme elevation. TSH was within normal limits. Alcohol level was slightly high at 76, the patient was clinically sober. Aspirin and Tylenol levels were undetectable. COVID test was negative. Urine tox and urinalysis are currently pending. The patient was felt medically clear. The patient was seen by psychiatry case management. Case management did obtain text messages that he had sent to his girlfriend documenting his suicidal threats. The patient admits that his mental health has not been the greatest lately. With what happened tonight, he has decided to sign into the psychiatric hospital voluntarily. Patient has been cooperative during his ED stay, he is currently resting comfortably. A bed search is underway. DISPOSITION: Currently still an ED patient. Past Med/Surg History Medical History Bipolar disorder Bowel obstruction Meckel's diverticulum perforation No pertinent family history Polysubstance overdose Surgical History No pertinent past surgical history Social History Smoking Status: Current every day smoker Tobacco Type: E-cigarettes / Vaping Hx Alcohol Use: No Hx Substance Use: Yes Last Used Substance: Hours (ago) Preferred Language: Palestinian Communication Ability: Effective Seafood Preparer Required: No Beliefs That Will Affect Care: None Current Living Situation: Significant Other Current Living Situation Comment: apartment with girlfriend Feels Safe at Home: Yes Assistive Devices: None Allergies Allergies Allergy/AdvReac Type Severity Reaction Status Date / Time No Known Allergies Allergy Verified 11/21/22 19:12 Home Meds Home Medications Medication Instructions Recorded Confirmed sertraline 100 mg tablet 50 mg PO BID 05/30/22 11/21/22 buspirone 10 mg tablet 10 mg PO BID 11/21/22 11/21/22 sertraline 50 mg tablet 25 mg PO BID 11/21/22 11/21/22 Previous Rx's Medication Instructions Recorded ondansetron 4 mg disintegrating 4 mg PO Q6 PRN nausea and vomiting 11/21/22 tablet #14 tabs Results & Data (ED) Vital Signs Vital Signs - 24 hr 12/20/22 20:20 12/20/22 20:20 Temperature 36.7 C 36.7 C Temperature Source Oral Oral Pulse Rate 92 H Pulse Rate [Right Finger] 92 H Respiratory Rate 18 18 Respiratory Effort / Characteristics Non-Labored Spontaneous Non-Labored Spontaneous Respiratory Depth Normal Normal Respiratory Pattern Regular Regular Blood Pressure 134/77 Blood Pressure [Right Arm] 134/77 Blood Pressure Mean 96 Blood Pressure Mean [Right Arm] 96 Blood Pressure Position Sitting Blood Pressure Position [Right Arm] Sitting Pulse Oximetry 96 96 Oxygen Delivery Method Room Air Room Air Sepsis Recent Fever Within 48 Hours No Sepsis New/Unexplained Change in Mental Status No Sepsis Action Taken by Nursing No Action Required Home Medications Current Medication List: was personally reviewed by me Laboratory Data Attestation: I reviewed the patient's lab results. 12/20/22 21:05 12/20/22 21:05 Lab Results 12/20/22 12/20/22 12/20/22 Range/Units 21:05 21:05 21:05 WBC 7.50 (4.8-10.8) K/ul RBC 4.90 (4.70-6.10) M/uL Hgb 13.7 L (14.0-18.0) g/dl Hct 41.1 L (42.0-52.0) % MCV 83.9 (80.0-100.0) fL MCH 28.0 (25.0-34.0) pg MCHC 33.3 (32.0-36.0) g/dL RDW Std Deviation 39.6 (36.4-46.3) fL RDW Coeff of Mary 12.9 (11.5-14.5) % Plt Count 244 (130-400) K/uL MPV 10.8 (9.4-12.4) fL Immature Gran % (Auto) 0.3 % Neut % (Auto) 51.4 % Lymph % (Auto) 35.5 % Scurry % (Auto) 11.2 % Eos % (Auto) 0.8 % Baso % (Auto) 0.8 % Neut # (Auto) 3.86 (1.40-6.50) K/uL Lymph # (Auto) 2.66 (1.2-3.4) K/uL Scurry # (Auto) 0.84 H (0.11-0.59) K/uL Eos # (Auto) 0.06 (0-0.50) K/uL Baso # (Auto) 0.06 (0-0.2) K/uL Immature Gran # (Auto) 0.02 (0.01-0.20) K/uL Sodium 141 (136-145) mmol/L Potassium 3.5 (3.5-5.1) mmol/L Chloride 110 H (98-107) mmol/L Carbon Dioxide 23 (21-32) mmol/L Anion Gap 8 (3-11) BUN 11 (6-23) mg/dl Creatinine 0.67 (0.6-1.4) mg/dl Est Cr Clr Drug Dosing Not Reportable Est GFR ( Amer) 145.3 ml/min Est GFR (Non-Af Amer) 125.4 ml/min BUN/Creatinine Ratio 16.4 (10-20) Glucose 116 H (70-99(Fasting)) mg/dl Calcium 9.2 (8.6-10.3) mg/dl Total Bilirubin 0.2 (0.2-1.0) mg/dl AST 18 (13-39) U/L ALT 15 (7-52) U/L Alkaline Phosphatase 55 (34-104) U/L Total Protein 6.6 (6.0-8.3) gm/dl Albumin 4.4 (3.4-5.0) gm/dl Globulin 2.2 L (2.5-4.0) gm/dl Albumin/Globulin Ratio 2.0 (0.9-2) TSH 1.425 (0.300-4.500) uIu/ml Salicylates (3.0-30) mg/dl Acetaminophen (10-30) ug/ml Ethyl Alcohol mg/dL (<10.0) mg/dl SARS-CoV-2, RNA, NAAT (NEGATIVE) 12/20/22 12/20/22 12/20/22 Range/Units 21:05 21:05 21:05 WBC (4.8-10.8) K/ul RBC (4.70-6.10) M/uL Hgb (14.0-18.0) g/dl Hct (42.0-52.0) % MCV (80.0-100.0) fL MCH (25.0-34.0) pg MCHC (32.0-36.0) g/dL RDW Std Deviation (36.4-46.3) fL RDW Coeff of Mary (11.5-14.5) % Plt Count (130-400) K/uL MPV (9.4-12.4) fL Immature Gran % (Auto) % Neut % (Auto) % Lymph % (Auto) % Scurry % (Auto) % Eos % (Auto) % Baso % (Auto) % Neut # (Auto) (1.40-6.50) K/uL Lymph # (Auto) (1.2-3.4) K/uL Scurry # (Auto) (0.11-0.59) K/uL Eos # (Auto) (0-0.50) K/uL Baso # (Auto) (0-0.2) K/uL Immature Gran # (Auto) (0.01-0.20) K/uL Sodium (136-145) mmol/L Potassium (3.5-5.1) mmol/L Chloride (98-107) mmol/L Carbon Dioxide (21-32) mmol/L Anion Gap (3-11) BUN (6-23) mg/dl Creatinine (0.6-1.4) mg/dl Est Cr Clr Drug Dosing Est GFR ( Amer) ml/min Est GFR (Non-Af Amer) ml/min BUN/Creatinine Ratio (10-20) Glucose (70-99(Fasting)) mg/dl Calcium (8.6-10.3) mg/dl Total Bilirubin (0.2-1.0) mg/dl AST (13-39) U/L ALT (7-52) U/L Alkaline Phosphatase (34-104) U/L Total Protein (6.0-8.3) gm/dl Albumin (3.4-5.0) gm/dl Globulin (2.5-4.0) gm/dl Albumin/Globulin Ratio (0.9-2) TSH (0.300-4.500) uIu/ml Salicylates < 3.0 L (3.0-30) mg/dl Acetaminophen < 3 L (10-30) ug/ml Ethyl Alcohol mg/dL 76.2 H (<10.0) mg/dl SARS-CoV-2, RNA, NAAT NEGATIVE (NEGATIVE) Discharge Plan Visit Data Chief Complaint: Mental Health Evaluation ED Provider: Leon Guo Discharge Problem: Suicidal ideation, Bipolar disorder Patient Disposition: Still a Patient Condition: Good Forms Stand Alone Forms: [facility], Suicide Prevention Resources Prescriptions Prescriptions: No Action sertraline 100 mg tablet 50 mg PO BID Rx Instructions: TOTAL DOSE 75 MG--TAKES WITH 1/2 OF 50 MG TAB. buspirone 10 mg tablet 10 mg PO BID sertraline 50 mg tablet 25 mg PO BID Rx Instructions: TOTAL DOSE 75 MG--TAKES WITH 1/2 TAB OF 100 MG TAB. ondansetron 4 mg tablet,disintegrating 4 mg PO Q6 PRN (Reason: nausea and vomiting) Qty: 14 0RF Referrals Referrals: Payal Kelly DO [Primary Care Provider] - Bipolar disorder Qualifiers: Active/Remission status: currently active Current bipolar episode type: manic Current episode severity: mild Qualified Code(s): F31.11 - Bipolar disorder, current episode manic without psychotic features, mild
[2022-12-20 21:33] LABS: Alanine Aminotransferase 15 U/L (7-52); Albumin Level 4.4 gm/dl (3.4-5.0); Alkaline Phosphatase 55 U/L (34-104); Anion Gap 8 (3-11); Aspartate Aminotransferase 18 U/L (13-39); BUN Creatinine Ratio 16.4 (10-20); Bilirubin,Total 0.2 mg/dl (0.2-1.0); Blood Urea Nitrogen 11 mg/dl (6-23); Calcium 9.2 mg/dl (8.6-10.3); Carbon Dioxide 23 mmol/L (21-32); Chloride 110 mmol/L (98-107); Est GFR (African American) 145.3 ml/min; Est GFR (Non-African American) 125.4 ml/min; Globulin 2.2 gm/dl (2.5-4.0); Glucose 116 mg/dl (70-99(Fasting)); Potassium 3.5 mmol/L (3.5-5.1); Sodium 141 mmol/L (136-145); Total Protein 6.6 gm/dl (6.0-8.3)
[2022-12-20 21:46] LABS: Basophils # (auto) 0.06 K/uL (0-0.2); Basophils % (auto) 0.8 %; Eosinophils # (auto) 0.06 K/uL (0-0.50); Eosinophils % (auto) 0.8 %; Hematocrit (blood only) 41.1 % (42.0-52.0); Hemoglobin 13.7 g/dl (14.0-18.0); Immature Granulocytes # (auto) 0.02 K/uL (0.01-0.20); Immature Granulocytes % (auto) 0.3 %; Lymphocytes # (auto) 2.66 K/uL (1.2-3.4); Lymphocytes % (auto) 35.5 %; Mean Corpuscular Hgb Conc 33.3 g/dL (32.0-36.0); Mean Corpuscular Volume 83.9 fL (80.0-100.0); Mean Platelet Volume 10.8 fL (9.4-12.4); Monocytes # (auto) 0.84 K/uL (0.11-0.59); Monocytes % (auto) 11.2 %; Neutrophils # (auto) 3.86 K/uL (1.40-6.50); Neutrophils % (auto) 51.4 %; Platelet Count 244 K/uL (130-400); RDW Coefficient of Variation 12.9 % (11.5-14.5); RDW Standard Deviation 39.6 fL (36.4-46.3)
[2022-12-20 21:54] LABS: Acetaminophen < 3 ug/ml (10-30); Salicylate < 3.0 mg/dl (3.0-30)
[2022-12-20] MEDS ORDERED: ONDANSETRON 4 MG OD TAB PO STA (23:50)
[2022-12-21 01:15] LABS: Appearance Urine Clear (Clear); Bilirubin Urine Negative (Negative); Blood Urine Negative (Negative); Color Urine Yellow; Glucose Urine UA Negative (Negative); Ketones Urine Negative (Negative); Leukocyte Esterase Urine Negative (Negative); Nitrite Urine Negative (Negative); Protein Urine Negative (Negative); Specific Gravity Urine 1.027 (1.000-1.030); Urobilinogen Urine Negative (Negative)
[2022-12-21 01:44] LABS: Amphetamines+Metham, Urine Neg (Neg); Barbiturates, Urine Neg (Neg); Benzodiazepine, Urine Neg (Neg); Cocaine, Urine Neg (Neg); MDMA (Ecstacy), Urine Neg (Neg); Methadone, Urine Neg (Neg); Opiate, Urine Neg (Neg); Phencyclidine, Urine Neg (Neg)
--- NOTE | 2022-12-21 05:39 | Emergency Department Note ---
ED Visit Note ED observation note. The case was signed over to me by Dr. Guo at change of shift at 2300. Patient is being evaluated for psychiatric issues and suicidal ideation. Patient underwent evaluation by case management and [facility] psychiatry staff. Patient is now accepted and admitted to [facility] for psychiatric treatment at 5:35 AM Disposition is admit to [facility] .
[2022-12-21] MEDS ORDERED: SODIUM CHLORIDE 0.65% NA SOLN 45 ML (OCEAN) PRN (06:16)
[2022-12-21] MEDS ORDERED: hydrOXYzine HCl 25 MG TAB PO PRN ×2 (06:16)
[2022-12-21] MEDS ORDERED: MAGNESIUM HYDROXIDE SUSP 30 ML UDC PO PRN (06:16)
[2022-12-21] MEDS ORDERED: ACETAMINOPHEN 325 MG TAB PO PRN (06:16)
[2022-12-21] MEDS ORDERED: BISMUTH SUBSALICYLATE LIQD 236 ML PO PRN (06:16)
[2022-12-21] MEDS ORDERED: ALUMINUM/MAGNESIUM SUSP 30 ML UDC PO PRN (06:16)
[2022-12-21] MEDS ORDERED: FLUARIX QUADRIVALENT 0.5 ML SYR IM ONE (09:00)
[2022-12-21] MEDS: NICOTINE 21 MG/24 HR TDSY TD SCH (09:42)
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
[2022-12-21] MEDS: busPIRone 5 MG TAB PO SCH (20:59)
[2022-12-21] MEDS ORDERED: SERTRALINE HCL 100 MG TABLET PO SCH (22:00)
[2022-12-22] MEDS: NICOTINE 21 MG/24 HR TDSY TD SCH (08:50)
[2022-12-22] MEDS: busPIRone 5 MG TAB PO SCH (08:50)
[2022-12-22] MEDS ORDERED: SERTRALINE HCL 50 MG TABLET PO SCH (09:00)
--- NOTE | 2022-12-22 09:02 | Psychiatric Progress Note ---
Date of Service December 22, 2022 Impression / Recommendations Impression 32 y/o man with a long history of psychiatric and substance use symptoms who while drunk communicated suicidal threats to his girlfriend contingent on her paying attention to him. He has previously been diagnosed with bipolar disorder but denies a clear history of petey. 12/22/2022: Following our meeting yesterday, pt has been somewhat focused on starting naltrexone, which I'd brought up yesterday but which he'd summarily rejected as unnecessary. He says he wants the monthly injection "so I can show people I'm serious because I won't be able to get drunk any more". I reminded him that we'd specifically discussed that naltrexone does NOT interfere with alcohol effects nor cause adverse effects when alcohol is used. He would still like to use the injection. I informed him that I can provide a discharge prescription but that the injectable form is not in our pharmacy and that, in any event, he should have at least one test dose to confirm a lack of (highly unlikely) serious side effects. He requested we do this. Has made numerous requests of staff which they've been unable to fulfill to his satisfaction (e.g., asked for his bed to be adjusted but it was never quite to his specifications so he eventually asked that it be reset to defaults). Has, thus far, tolerated the small increases in sertraline (from 75 mg BID to 75 mg QAM & 100 mg QHS). The ordered increase in buspirone (from 10 mg BID to 10 mg TID) will first come into effect today. Pt remains focused on keeping his medical record out of the hands of various constituents who will likely be able to compel release (such as his chief executive officer, who will likely require him to provide a release). He also asks that certain information be omitted or elided from his record (such as the fact that he'd been drinking). 12/21/2022: Discussed resuming sertraline. When I remarked that his dose isn't especially high (he'd "thought it was the max"), pt asked if it could be increased even though he's been taking divided doses "because it turns me into a zombie". Pt's primary symptomatic complaint is of anxiety. I noted that buspirone is ideally used TID and at higher total daily doses - he asked if this could be increased as well. (1) Bipolar I disorder, most recent episode depressed, severe without psychotic features: Present on Admission?: Yes (2) Polysubstance dependence: Present on Admission?: Yes (3) Borderline personality disorder: Present on Admission?: Yes (4) Histrionic personality disorder: Present on Admission?: Yes (5) Narcissistic personality disorder: Present on Admission?: Yes Plan 12/22/2022: * continue sertraline 75 mg QAM, 100 mg QHS * continue buspirone 10 mg TID with plan of titrating to 15 mg TID * start nalrexone 50 mg QAM, anticipate transition to monthly IM following discharge * continue to avoid benzodiazepines due to risks of dependence and disinhibition 12/21/2022: The patient was admitted to the [facility] ([facility]) on q15 min checks (behavioral with suicide precautions) for safety. The patient will participate in group, recreational, and milieu therapies and will be offered additional individual and family sessions as clinically appropriate. * resume sertraline, increase to 75 mg QAM, 100 mg QHS * resume buspirone, increase to 10 mg TID with plan of titrating to 15 mg TID * avoid benzodiazepines due to risks of dependence and disinhibition Inventory Assets Strengths: has local supports,voluntary, intelligent employed, Needs: safety and stabilization, medication adjustment, additional coping skills, increased outpatient services (psychotherapy) Suicide Risk Level Suicide Risk Level: Moderate (q15 min suicide checks) Suicide Risk Level Comments: pt currently denies any suicidal thoughts Risk Factors Assessment Male: Yes : Yes Do You Have Access To A Gun?: No Health Problems: No Mental Health Diagnoses: Yes Substance Use Disorders: Yes Previous Attempt: No Family History of Suicide: No Previous Psychiatric Hospitalization: Yes Hopelessness: No Protective Factors Assessment Employed: Yes ([employer]) Interval History Identifying Information JOURDAN PERAZA is a 32-year-old M who currently lives in an apartment with 2 roommates, has a history of bipolar disorder and substance abuse, and was admitted on 12/21/22 04:51 on a 201 voluntary commitment for suicidal threats. Chief Complaint "[]". Review of Systems Sleep Information Total Hours of Sleep: 8.5 Sleep Comments: Admitted early in AM Meal Information Percent Meal Consumed - Breakfast: 0 Percent Meal Consumed - Lunch: 60 Percent Meal Consumed - Dinner: 100 Subjective Subjective Patient was seen & assessed and interval progress reviewed with nursing and social work Physical Exam Psychiatric Orientation: alert, oriented to person, oriented to place, oriented to time and + guarded Apperance: appropriately dressed and + disheveled Eye Contact: + fair eye contact Motor Behavior: steady gait and station and no abnormal motor movements Speech: normal rate/rhythm/volume of speech Affect: + labile affect Mood: + anxious mood and + irritable mood Thought Process: + circumstantial thought process and + tangential thought process Thought Content: + preoccupation (with injustices he's faced) and + cognitive distortions Suicidal Thoughts: denies suicidal thoughts, denies suicidal plan and denies suicidal intent Homicidal Thoughts: denies homicidal thoughts Hallucinations: no auditory hallucinations and no visual hallucinations Cognition: recent memory grossly intact, remote memory grossly intact, attention grossly intact and language grossly intact Estimated Intelligence: average estimated intelligence Insight: + limited insight Judgment: + limited judgement Vital Signs (Past 24 Hours) Last Vital Signs Temp 36.5 C 12/22/22 06:32 Pulse 83 12/22/22 06:32 Resp 16 12/22/22 06:32 BP 127/87 12/22/22 06:32 Pulse Ox 99 12/21/22 06:19 O2 Del Method Room Air 12/21/22 06:19 Results & Data ([facility]) Current Inpatient Medications Current Inpatient Medications: Current Inpatient Medications Acetaminophen (Acetaminophen 325 Mg Tab) 650 mg PO Q4H PRN PRN Reason: Headache or Minor Fever Stop: 01/20/23 06:15 Al Hydrox/Mg Hydrox/Simethicone (Aluminum/Magnesium Susp 30 Ml Udc) 30 ml PO Q4H PRN PRN Reason: GI Upset Stop: 01/20/23 06:15 Bismuth Subsalicylate (Bismuth Subsalicylate Liqd 236 Ml) 15 ml PO PRN PRN PRN Reason: Loose Stool Stop: 01/20/23 06:15 Buspirone HCl (Buspirone 5 Mg Tab) 10 mg PO TID ANCELMO Stop: 01/20/23 20:59 Last Admin: 12/22/22 08:50 Dose: 10 mg Hydroxyzine HCl (Hydroxyzine Hcl 25 Mg Tab) 50 mg PO HSZ PRN PRN Reason: Insomnia Stop: 01/20/23 06:15 Hydroxyzine HCl (Hydroxyzine Hcl 25 Mg Tab) 25 mg PO Q4H PRN PRN Reason: Anxiety Stop: 01/20/23 06:15 Magnesium Hydroxide (Magnesium Hydroxide Susp 30 Ml Udc) 30 ml PO DAILY PRN PRN Reason: Constipation Stop: 01/20/23 06:15 Miscellaneous (Remove Nicoderm Patch) 1 each N/A DAILY@0859 [facility] Stop: 01/20/23 08:58 Last Admin: 12/22/22 08:50 Dose: 1 each Nicotine (Nicotine 21 Mg/24 Hr Tdsy) 21 mg TD QAM ANCELMO Stop: 01/20/23 08:59 Last Admin: 12/22/22 08:50 Dose: 21 mg Sertraline HCl (Sertraline Hcl 100 Mg Tablet) 100 mg PO HS ANCELMO Stop: 01/20/23 21:59 Last Admin: 12/21/22 21:00 Dose: 100 mg Sertraline HCl (Sertraline Hcl 50 Mg Tablet) 75 mg PO QAM ANCELMO Stop: 01/21/23 08:59 Last Admin: 12/22/22 08:48 Dose: 75 mg Sodium Chloride (Sodium Chloride 0.65% Na Soln 45 Ml ([place])) 1 - 2 sprays NA PRN PRN PRN Reason: Nasal Dryness/Congestion Stop: 01/20/23 06:15 Mental Health & Subst Abuse Tx Psychiatrist Name of Psychiatrist: Renee No/[facility] Psych[facility] The[facility]ist Name of Therapist: Individual and Family Juan Antonio /Josephine for trauma Checkerer Hand Name of Checkerer Hand: None Post Discharge Appointments Primary Care Physician Name Of Family Doctor/PCP: Payal Kelly[facility]
[2022-12-22] MEDS ORDERED: NALTREXONE HCL 50 MG TAB PO SCH ×2 (09:45→10:15)
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
== END 2022-12-22 12:00 | disposition home or self-care (01) | DRG 885 ==
LOC: ED 20:26 → 3S 12-21 04:51

== ENCOUNTER 2024-01-08 17:26 | Inpatient (IN) ==
--- NOTE | 2024-01-08 18:17 | Emergency Department Note ---
Impression & Plan Depression with suicidal ideation, Alcohol use ED Provider Note NAME: JOURDAN PERAZA II AGE: 33 SEX: M : 1990 ARRIVES VIA: Walk-In INFORMANT: Patient, ED PROVIDER(S): Ousmane Beard DO CHIEF COMPLAINT: Mental health evaluation HPI: The patient is a 33-year-old male who presented to the emergency department for an evaluation of mental health issues. The patient has a problem with substance abuse. He has been drinking alcohol recently. He is also been smoking marijuana last few days. The patient lives in a homeless skilled nursing and recently was kicked out. This made him very desponded and he started having problems with thoughts of suicide. He has access to sharp told he was going to cut himself with. The patient denies having any fever or chills. He denies having any coughing. He does use tobacco products. The patient was admitted 2020 for similar episode. He has not been compliant with his medications over the last few days. ROS: See above HPI for pertinent positives & negatives. A total of 10 systems reviewed and were otherwise negative. PAST MEDICAL HISTORY: See Below PAST SURGICAL HISTORY: See Below FAMILY HISTORY: See Below SOCIAL HISTORY: See Below HOME MEDICATIONS: See Below ALLERGIES: See Below VITALS: See Below PHYSICAL EXAMINATION: GENERAL: The patient is awake and alert. He is somewhat anxious appearing. EYES: The conjunctivae are clear. The pupils are round and reactive. EARS, NOSE, MOUTH AND THROAT: The nose is without any evidence of any deformity. NECK: The neck is nontender and supple. RESPIRATORY: Normal respiratory effort is noted there is no evidence of wheezing rhonchi or rales CARDIOVASCULAR: Regular rate and rhythm noted there no murmurs rubs or gallops normal S1 normal S2. GASTROINTESTINAL: The abdomen is soft. Abdomen is nontender. MUSCULOSKELETAL/EXTREMITIES: There is no evidence of gross deformity full range of motion is noted in the hips and shoulders. SKIN: There is no obvious evidence of any rash. There are no petechiae, pallor or cyanosis noted. NEUROLOGIC: Patient is awake alert and oriented x3. Gait was steady. PSYCH: The patient makes good eye contact mostly evaluation. His affect is flat. He does continue to admit to suicidal ideation with a plan to cut himself. MEDICAL DECISION MAKING: The patient is a 33-year-old male who presented to the emergency department for mental health evaluation. The patient was having problems recently with his living situation. He started having thoughts of hurting himself with plans to cut himself. The patient presented to the emergency department for a voluntary evaluation. The patient was medically cleared in the emergency department. The patient was reevaluated by the mental health nurse case management. The patient still appears to meet criteria for inpatient management. He was drinking alcohol earlier today but he was not clinically intoxicated. The patient was felt to be a good candidate for inpatient management on 3 S. The 201 was signed by myself. Patient was treated with Ativan for anxiety in the emergency department. Triage Nursing notes reviewed. Prior medical records reviewed Vital Signs: reviewed and remarkable for no significant abnormalities Differential diagnosis: Mood disorder, infection, hypoglycemia, electrolyte abnormalities, cardiac sources, intracerebral event, toxicologic, trauma, neurologic, as well as other pathologies. ER treatment provided: See below Diagnostics interpreted by me: ECG: none Laboratory studies: As stated above and show below. Imaging studies: See below. Consultation(s): I discussed this case with the emergency department off nurse case management. 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 Borderline personality disorder Suicidal ideation Pilar cyst Polysubstance overdose Toxic effect of isopropanol No pertinent family history Meckel's diverticulum perforation Bowel obstruction Surgical History No pertinent past surgical history H/O right inguinal hernia repair History of appendectomy Social History Smoking Status: Current every day smoker Tobacco Type: E-cigarettes / Vaping Do You Dip or Chew Tobacco: No; Hx Alcohol Use: No Hx Substance Use: No Preferred Language: Panamanian Communication Ability: Effective District Loss Prevention Manager Required: No Beliefs That Will Affect Care: None Current Living Situation: Alone and Significant Other Current Living Situation Comment: apartment with girlfriend Feels Safe at Home: Yes Gender Identity: Male Assistive Devices: None Allergies Allergies Allergy/AdvReac Type Severity Reaction Status Date / Time No Known Allergies Allergy Verified 07/07/23 20:23 Home Meds Home Medications Medication Instructions Recorded Confirmed buprenorphine 300 mg/1.5 mL 100 mg subcut MONTHLY 07/07/23 01/08/24 solution,exten.rel.subcutaneous syringe (Sublocade) buspirone 15 mg tablet 15 mg PO BID 07/07/23 01/08/24 hydroxyzine HCl 25 mg tablet 50 mg PO BID PRN Anxiety 07/07/23 01/08/24 sertraline 100 mg tablet 200 mg PO HS 07/07/23 01/08/24 Results & Data (ED) Vital Signs Vital Signs - 24 hr 01/08/24 17:44 01/08/24 19:45 Temperature 36.8 C Temperature Source Skin Pulse Rate 84 Pulse Rate [Right Finger] 87 Respiratory Rate 20 16 Respiratory Effort / Characteristics Non-Labored Spontaneous Non-Labored Spontaneous Respiratory Depth Normal Normal Respiratory Pattern Regular Regular Blood Pressure 113/71 Blood Pressure [Right Arm] 108/68 Blood Pressure Mean 85 Blood Pressure Mean [Right Arm] 81 Pulse Oximetry 95 95 Oxygen Delivery Method Room Air Room Air Sepsis Recent Fever Within 48 Hours No Sepsis New/Unexplained Change in Mental Status N/A Sepsis Action Taken by Nursing No Action Required Home Medications Current Medication List: was personally reviewed by me Laboratory Data Attestation: I reviewed the patient's lab results. 01/08/24 18:10 01/08/24 18:10 Lab Results 01/08/24 Range/Units 18:10 WBC 6.38 (4.8-10.8) K/ul RBC 5.70 (4.70-6.10) M/uL Hgb 14.9 (14.0-18.0) g/dl Hct 45.2 (42.0-52.0) % MCV 79.3 L (80.0-100.0) fL MCH 26.1 (25.0-34.0) pg MCHC 33.0 (32.0-36.0) g/dL RDW Std Deviation 39.7 (36.4-46.3) fL RDW Coeff of Mary 13.8 (11.5-14.5) % Plt Count 274 (130-400) K/uL MPV 10.7 (9.4-12.4) fL Immature Gran % (Auto) 0.5 % Neut % (Auto) 68.6 % Lymph % (Auto) 25.5 % Blair % (Auto) 4.7 % Eos % (Auto) 0.2 % Baso % (Auto) 0.5 % Neut # (Auto) 4.38 (1.40-6.50) K/uL Lymph # (Auto) 1.63 (1.20-3.40) K/uL Blair # (Auto) 0.30 (0.11-0.59) K/uL Eos # (Auto) 0.01 (0.00-0.50) K/uL Baso # (Auto) 0.03 (0.00-0.20) K/uL Immature Gran # (Auto) 0.03 (0.01-0.20) K/uL Sodium 139 (136-145) mmol/L Potassium 4.0 (3.5-5.1) mmol/L Chloride 104 (98-107) mmol/L Carbon Dioxide 27 (21-32) mmol/L Anion Gap 8 (3-11) BUN 10 (6-23) mg/dl Creatinine 0.64 (0.6-1.4) mg/dl Est Cr Clr Drug Dosing 161.1 ml/min Est GFR ( Amer) 147.0 ml/min Est GFR (Non-Af Amer) 126.9 ml/min BUN/Creatinine Ratio 15.6 (10-20) Glucose 100 H (70-99(Fasting)) mg/dl Calcium 9.2 (8.6-10.3) mg/dl Total Bilirubin 0.5 (0.2-1.0) mg/dl AST 25 (13-39) U/L ALT 19 (7-52) U/L Alkaline Phosphatase 56 (34-104) U/L Total Protein 6.8 (6.0-8.3) gm/dl Albumin 4.6 (3.4-5.0) gm/dl Globulin 2.2 L (2.5-4.0) gm/dl Albumin/Globulin Ratio 2.1 H (0.9-2) TSH 2.239 (0.300-4.500) uIu/ml Urine Color Yellow Urine Appearance Clear (Clear) Urine pH 6.5 (4.5-7.5) Ur Specific [place] 1.010 (1.000-1.030) Urine Protein Negative (Negative) Urine Glucose (UA) Negative (Negative) Urine Ketones Negative (Negative) Urine Blood Trace-intact H (Negative) Urine Nitrite Negative (Negative) Urine Bilirubin Negative (Negative) Urine Urobilinogen Negative (Negative) Ur Leukocyte Esterase Negative (Negative) Urine RBC 3-5 H (0-2) /hpf Urine WBC 0-5 (0-5) /hpf Ur Epithelial Cells 0-2 (0-2) /hpf Urine Bacteria None Seen (None Seen) Salicylates < 3.0 L (3.0-30) mg/dl Urine Opiates Screen Neg (Neg) Ur Methadone, Qual Neg (Neg) Acetaminophen < 3 L (10-30) ug/ml Urine Barbiturates Neg (Neg) Ur Phencyclidine (PCP) Neg (Neg) U Amphetamin/Meth Scrn Neg (Neg) MDMA (Ecstasy) Screen Neg (Neg) U Benzodiazepines Scrn Neg (Neg) Ur Cocaine Metabolite Neg (Neg) U Marijuana (THC) Screen Pos H (Neg) Ethyl Alcohol mg/dL 91.3 H (<10.0) mg/dl SARS-CoV-2, RNA, NAAT NEGATIVE (NEGATIVE) Administered Medications Discontinued Medications Lorazepam (Lorazepam 1 Mg Tab) 1 mg PO NOW STA Stop: 01/08/24 18:13 Last Admin: 01/08/24 18:24 Dose: 1 mg Documented By: MR Nicotine (Nicotine 14 Mg/24 Hr Patch) 1 patch TD ONE ONE Stop: 01/08/24 18:13 Last Admin: 01/08/24 18:24 Dose: 1 patch Documented By: MR Discharge Plan Visit Data Chief Complaint: Mental Health Evaluation Stated Complaint: MENTAL HEATLH ED Provider: Ousmane Beard Discharge Problem: Depression with suicidal ideation, Alcohol use Patient Disposition: Transfer Behavioral Health Fac Forms Stand Alone Forms: My [facility], Suicide Prevention Resources Prescriptions Prescriptions: No Action hydroxyzine HCl 25 mg tablet 50 mg PO BID PRN (Reason: Anxiety) buspirone 15 mg tablet 15 mg PO BID Sublocade 300 mg/1.5 mL solution, extended rel syringe 100 mg SUBCUT MONTHLY sertraline 100 mg tablet 200 mg PO HS Referrals Referrals: Payal Kelly DO [Primary Care Provider] -
[2024-01-08] MEDS: NICOTINE 14 MG/24 HR PATCH TD ONE (18:24)
[2024-01-08] MEDS: LORazepam 1 MG TAB PO STA (18:24)
[2024-01-08 18:37] LABS: Basophils # (auto) 0.03 K/uL (0.00-0.20); Basophils % (auto) 0.5 %; Eosinophils # (auto) 0.01 K/uL (0.00-0.50); Eosinophils % (auto) 0.2 %; Hematocrit (blood only) 45.2 % (42.0-52.0); Hemoglobin 14.9 g/dl (14.0-18.0); Immature Granulocytes # (auto) 0.03 K/uL (0.01-0.20); Immature Granulocytes % (auto) 0.5 %; Lymphocytes # (auto) 1.63 K/uL (1.20-3.40); Lymphocytes % (auto) 25.5 %; Mean Corpuscular Hemoglobin 26.1 pg (25.0-34.0); Mean Corpuscular Volume 79.3 fL (80.0-100.0); Mean Platelet Volume 10.7 fL (9.4-12.4); Monocytes % (auto) 4.7 %; Neutrophils # (auto) 4.38 K/uL (1.40-6.50); Neutrophils % (auto) 68.6 %; Platelet Count 274 K/uL (130-400); RDW Coefficient of Variation 13.8 % (11.5-14.5); RDW Standard Deviation 39.7 fL (36.4-46.3); White Blood Count 6.38 K/ul (4.8-10.8)
[2024-01-08 18:50] LABS: Appearance Urine Clear (Clear); Bilirubin Urine Negative (Negative); Blood Urine Trace-intact (Negative); Color Urine Yellow; Glucose Urine UA Negative (Negative); Ketones Urine Negative (Negative); Leukocyte Esterase Urine Negative (Negative); Nitrite Urine Negative (Negative); Protein Urine Negative (Negative); Urobilinogen Urine Negative (Negative); pH Urine 6.5 (4.5-7.5)
[2024-01-08 19:06] LABS: Bacteria Urine None Seen (None Seen); Epithelial Cell Urine 0-2 /hpf (0-2); WBC Urine 0-5 /hpf (0-5)
[2024-01-08 19:17] LABS: Acetaminophen < 3 ug/ml (10-30); Salicylate < 3.0 mg/dl (3.0-30)
[2024-01-08 19:18] LABS: Albumin Globulin Ratio 2.1 (0.9-2); Albumin Level 4.6 gm/dl (3.4-5.0); BUN Creatinine Ratio 15.6 (10-20); Bilirubin,Total 0.5 mg/dl (0.2-1.0); Calcium 9.2 mg/dl (8.6-10.3); Creatinine Clr Calc Pharmacy 161.1 ml/min; Est GFR (Non-African American) 126.9 ml/min; Globulin 2.2 gm/dl (2.5-4.0); Total Protein 6.8 gm/dl (6.0-8.3)
[2024-01-08 19:32] LABS: Thyroid Stimulating Hormone 2.239 uIu/ml (0.300-4.500)
[2024-01-08 19:52] LABS: Amphetamines+Metham, Urine Neg (Neg); Barbiturates, Urine Neg (Neg); Benzodiazepine, Urine Neg (Neg); Cocaine, Urine Neg (Neg); MDMA (Ecstacy), Urine Neg (Neg); Marijuana, Urine Pos (Neg); Methadone, Urine Neg (Neg); Opiate, Urine Neg (Neg); Phencyclidine, Urine Neg (Neg)
[2024-01-08] MEDS ORDERED: SODIUM CHLORIDE 0.65% NA SOLN 45 ML (OCEAN) PRN (23:55)
[2024-01-08] MEDS ORDERED: ALUMINUM/MAGNESIUM SUSP 30 ML UDC PO PRN (23:55)
[2024-01-08] MEDS ORDERED: BISMUTH SUBSALICYLATE LIQD 236 ML PO PRN (23:55)
[2024-01-08] MEDS ORDERED: MAGNESIUM HYDROXIDE SUSP 30 ML UDC PO PRN (23:55)
[2024-01-08] MEDS ORDERED: NICOTINE POLACRILEX 2 MG GUM MT PRN (23:55)
[2024-01-09] MEDS: hydrOXYzine HCl 25 MG TAB PO PRN ×2 (00:29→10:11)
[2024-01-09] MEDS: NICOTINE 14 MG/24 HR PATCH TD SCH (10:10)
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
[2024-01-09] MEDS: risperiDONE 0.25 MG TAB PO SCH (21:55)
[2024-01-09] MEDS: hydrOXYzine HCl 25 MG TAB PO SCH (21:55)
--- OUTSIDE RECORDS SUMMARY | 2024-01-10 03:13 | External Medical Summary | Summary of Care ---
Author Name Unknown Organization [facility] Address [address] [place] [address] Phone [phone] Care Team Providers Care [employer] [address] [employer] Name Role Phone Payal Kelly DO Primary Car e Provider Reason for Visit * Reason Onset Date Comments case management 07/23/2023 Encounter Details Date Type Department Care Team ([facility] st Contact Info) Description 07/23/2023 Cash Poster Telephone Care Coordination [address] [place] [address] Erin Hughes LSW [address], [place] [id number] case management Allergies No known active allergiesdocumented as of this encounter (statuses as of 07/23/2023) Medications Medication Sig Dispensed Refills Start Date End Date Status Amoxicillin-Pot Clavulanate 875-125 MG Oral TabletIndications:Acut e non-recurrent pansinusitis Take by mouth 1 Tablet in the morning AND 1 Tablet before bedtime. With food. Until gone.. 20 Tablet 0 01/05/2022 Active documented as of this encounter (statuses as of 07/23/2023) Social History Tobacco Use Types Packs/Day Years Used Date Smoking Tobacco: Every Day Smokeless Tobacco: Never Sex and Gender Information Value Date Recorded Sex Assigned at Not on file Gender Identity Not on file Sexual Orientation Not on file Job Start Date Occupation Industry Not on file Not on file Not on file documented as of this encounter Miscellaneous Notes * Telephone Encounter - Erin Hughes LSW - 07/23/2023 11:[address] 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 documented in this encounter Plan of Treatment Health Maintenance Due Date Last Done Comments Hepatitis B (1 of 3 - 3-dose series) 1988 COVID-19 Vaccine (#1) 1988 Pneumococcal Vaccine: Pediat rics (0 to 5 Years) and At-Risk Patients (6 to 64 Years) (1 - PCV) 1994 Depression Screening 2000 HIV Screening 2003 Hepatitis C Screening 2006 DTaP,Tdap,and Td Vaccines (1 - Tdap) 2007 Influenza Vaccine (FLU shot) (#1) 2023 GARDASIL-HPV IMMUNIZATION SERIES Aged Out No longer eligible based on patient's age to complete this topic MENINGOCOCCAL (MENACTRA/MENVEO) Aged Out No longer eligible based on patient's age to complete this topic documented as of this encounter Medical Devices Not on filedocumented as of this encounter Care Teams [employer] [address] [address] [employer] Relationship Specialty Start Date End Date Payal Kelly DO [address] [place] [address] PCP - General Family Medicine 01/05/22 documented as of this encounter
--- OUTSIDE RECORDS SUMMARY | 2024-01-10 03:13 | External Medical Summary | Summary of Care ---
Author Name Unknown Organization [facility] Address [address] [place] [address] Phone [phone] Care Team Providers Care Box Stacker Name Role Phone Payal Kelly DO Primary Car e Provider Encounter Details Date Type Department Care Team ([facility] Contact Info) Description 07/15/2023 Population Health External Data Unspecified Department Allergies No known active allergiesdocumented as of this encounter (statuses as of 07/28/2023) Medications Medication Sig Dispensed Refills Start Date End Date Status Amoxicillin-Pot Clavulanate 875-125 MG Oral TabletIndications:Acut e non-recurrent pansinusitis Take by mouth 1 Tablet in the morning AND 1 Tablet before bedtime. With food. Until gone.. 20 Tablet 0 01/05/2022 Active documented as of this encounter (statuses as of 07/28/2023) Social History Tobacco Use Types Packs/Day Years Used Date Smoking Tobacco: Every Day Smokeless Tobacco: Never Sex and Gender Information Value Date Recorded Sex Assigned at Not on file Gender Identity Not on file Sexual Orientation Not on file Job Start Date Occupation Industry Not on file Not on file Not on file documented as of this encounter Plan of Treatment Health Maintenance [...] filedocumented as of this encounter Care Teams Box Stacker Relationship Specialty Start Date End Date Payal Kelly [place] [facility] [place] [address] PCP - General Family Medicine 01/05/22 documented as of this encounter
--- OUTSIDE RECORDS SUMMARY | 2024-01-10 03:13 | External Medical Summary | Summary of Care ---
Author Name Unknown Organization [facility] Address [address] [place] [address] Phone [phone] Care Team Providers Care Dungeon Master Name Role Phone Payal Kelly DO Primary Car e Provider Encounter Details Date Type Department Care Team ([facility] Contact Info) Description 09/05/2023 Population Health External Data Unspecified Department Allergies No known active allergiesdocumented as of this encounter (statuses as of 09/05/2023) Medications Medication Sig Dispensed Refills Start Date End Date Status Amoxicillin-Pot Clavulanate 875-125 MG Oral TabletIndications:Acut e non-recurrent pansinusitis Take by mouth 1 Tablet in the morning AND 1 Tablet before bedtime. With food. Until gone.. 20 Tablet 0 01/05/2022 Active documented as of this encounter (statuses as of 09/05/2023) Social History Tobacco Use Types Packs/Day Years Used Date Smoking Tobacco: Every Day Smokeless Tobacco: Never Hunger Vital Sign Answer Date Recorded Within the past 12 months, y ou worried that your food would run out before you got the money to buy more. Never true 07/15/20 23 Within the past 12 months, t he food you bought just didn't last and you didn't have money to get more. Never true 07/15/2023 Sex and Gender Information Value Date Recorded [...] filedocumented as of this encounter Care Teams Dungeon Master Relationship Specialty Start Date End Date Payal Kelly DO [facility] [place] [address] PCP - General Family Medicine 01/05/22 documented as of this encounter
[2024-01-10] MEDS: SERTRALINE HCL 100 MG TABLET PO SCH (08:05)
[2024-01-10] MEDS: NICOTINE 21 MG/24 HR TDSY TD SCH (09:35)
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
[2024-01-10] MEDS: ACETAMINOPHEN 325 MG TAB PO PRN (16:02)
[2024-01-10] MEDS: hydrOXYzine HCl 25 MG TAB PO PRN (18:25)
[2024-01-10] MEDS: risperiDONE 1 MG TABLET PO SCH (22:28)
[2024-01-11 07:48] LABS: Chol HDL Ratio 4.2 (0-5)
[2024-01-11] MEDS: risperiDONE 0.25 MG TAB PO SCH (08:23)
--- NOTE | 2024-01-11 09:06 | Psychiatric Progress Note ---
Date of Service January 11, 2024 Impression / Recommendations Impression 33-year-old man with a history of possible bipolar disorder versus personality disorder as well as trauma, OCD and polysubstance use disorder admitted for worsened depression and SI in context of conflict with peer at [employer] resulting in him being asked to leave. 01/11/2024: Ongoing depression, reports increase in SI today related to psychosocial stressors. Ongoing ruminative thoughts which he attributes to OCD. He consents to trial of abilify as off-label use for OCD with discontinuation of risperidone. Reviewed labwork which was notable for normal fasting lipid panel and HbA1c pending. He also consents to trial of gabapentin as off-label as harm reduction strategy for alcohol use and off-label for anxiety. Reviewed side effects including but not limited to: movement (TD, NMS), cardiac (QTc prol ongation), and metabolic (stroke, insulin resistance) and necessity for fasting lipid and glucose labwork and AIMS done with score of 0 for abilify and dizziness, fatigue and potential for fatal respiratory depression if misused or combined with alcohol or benzodiazepines with gabapentin. Overall, I spent a total of 45 minutes on this case including meeting with the patient, reviewing the chart, nursing report, multidisciplinary team meeting, orders, and documentation. (1) Depression with suicidal ideation: (2) Alcohol use: (3) Substance use: (4) Narcissistic personality disorder: (5) Suicidal ideation: Plan 01/11/2024: -Discontinue risperidone -Start abilify 5mg tomorrow AM -gabapentin 300mg TID prn for alcohol cravings and anxiety -AWSS discontinued as has not been scoring outside timeframe of concern for acute withdrawal symptoms 01/10/2024: -Increase risperidone to 0.5mg qAM and 1mg HS -Continue sertraline 200mg qd -He declines option to start naltrexone, prefers to consider Antabuse in the future after period of structured sobriety via residential tx -Continue AWSS 01/09/2024: The patient was admitted to the [facility] ([facility] mental health unit) on q15 min checks (behavioral with suicide precautions) for safety. The patient will participate in group, recreational, and milieu therapies and will be off ered additional individual and family sessions as clinically appropriate. -Resume Zoloft 200mg po qam -Start Risperdal 0.5 mg PO BID -Resume Hydroxyzine 50mg BID -Monitor mood and behavior Suicide Risk Level Suicide Risk Level: High-Moderate (q15 min suicide checks) (ongoing SI but feels safe in the hospital ) Risk Factors Assessment Do You Have Access To A Gun?: No Protective Factors Assessment Employed: Yes Interval History Identifying Information JOURDAN PERAZA is a 33-year-old M who is currently homeless with a history of Mood Disorder, polysubstance use, OCD and trauma and was admitted on 01/08/24 23:05 on a 201 voluntary. Chief Complaint "Not great, I'm sad and depressed". Review of Systems Sleep Information Total Hours of Sleep: 6.5 Sleep Comments: Scheduled HS Vistaril and Risperdal Meal Information Percent Meal Consumed - Breakfast: 50 Percent Meal Consumed - Lunch: 75 Percent Meal Consumed - Dinner: 75 Subjective Subjective Patient was seen & assessed and interval progress reviewed with treatment team nursing and social work. Napped yesterday afternoon due to a headache. Gets irritable easily. Observed arguing on the phone with someone. He reports feeling depressed and overwhelmed today. He feels this is due to thinking more about his circumstances such as losing housing and not having a job. He mentions that he continues to experience intrusive suicidal thoughts, which have not improved with the increased dose of risperidone. He has not tried Abilify or gabapentin before. He is open to switching from risperidone to Abilify to target his intrusive thoughts and trying gabapentin for anxiety. He has not had any experience with off-label use of gabapentin for anxiety or alcohol use disorder. Regarding his living situation, he states that if he is discharged before a bed is available at a treatment facility, he would stay with his partner. His boat officer requires daily check-ins until he is admitted to a treatment facility, as long as he is not using substances. Physical Exam Psychiatric Orientation: alert and oriented x 3 Apperance: appropriately dressed Eye Contact: + fair eye contact Speech: + loud speech and normal rate/rhythm/volume of speech Affect: + depressed affect, + anxious affect, + labile affect and + irritable affect Mood: + depressed mood and + anxious mood Thought Process: + circumstantial thought process Thought Content: + cognitive distortions and reality based without delusions Suicidal Thoughts: denies suicidal plan; + reports suicidal thoughts Homicidal Thoughts: denies homicidal thoughts Hallucinations: no auditory hallucinations and no visual hallucinations Cognition: recent memory grossly intact and remote memory grossly intact Insight: + limited insight Judgment: + limited judgement Vital Signs (Past 24 Hours) Last Vital Signs Temp 36.5 C 01/11/24 06:00 Pulse 68 01/11/24 06:21 Resp 16 01/11/24 06:00 BP 115/73 01/11/24 06:21 Pulse Ox 98 01/11/24 06:00 O2 Del Method Room Air 01/11/24 06:00 Results & Data ([facility]) Laboratory Results Laboratory Results - last 24 hr 01/11/24 07:02 Estimat Average Glucose Pending Hemoglobin A1c Pending Triglycerides 118 Cholesterol 183 LDL Cholesterol, Calc 115 VLDL Cholesterol, Calc 24 HDL Cholesterol 44 Cholesterol/HDL Ratio 4.2 Current Inpatient Medications Current Inpatient Medications: Current Inpatient Medications Acetaminophen (Acetaminophen 325 Mg Tab) 650 mg PO Q4H PRN PRN Reason: Headache or Minor Fever Stop: 02/07/24 23:54 Last Admin: 01/10/24 16:02 Dose: 650 mg Al Hydrox/Mg Hydrox/Simethicone (Aluminum/Magnesium Susp 30 Ml Udc) 30 ml PO Q4H PRN PRN Reason: GI Upset Stop: 02/07/24 23:54 Bismuth Subsalicylate (Bismuth Subsalicylate Liqd 236 Ml) 15 ml PO PRN PRN PRN Reason: Loose Stool Stop: 02/07/24 23:54 Hydroxyzine HCl (Hydroxyzine Hcl 25 Mg Tab) 50 mg PO BID PRN PRN Reason: Anxiety Stop: 02/08/24 20:59 Last Admin: 01/10/24 22:28 Dose: 50 mg Magnesium Hydroxide (Magnesium Hydroxide Susp 30 Ml Udc) 30 ml PO DAILY PRN PRN Reason: Constipation Stop: 02/07/24 23:54 Miscellaneous (Remove Nicoderm Patch) 1 each N/A DAILY@0859 [facility] Stop: 02/09/24 08:58 Last Admin: 01/11/24 08:26 Dose: 1 each Nicotine (Nicotine 21 Mg/24 Hr Tdsy) 1 patch TD QAM [facility] Stop: 02/09/24 08:59 Last Admin: 01/11/24 08:24 Dose: 1 patch Nicotine Polacrilex (Nicotine Polacrilex 2 Mg Gum) 1 piece MT PRN PRN PRN Reason: Nicotine Withdrawal Symptoms Stop: 02/07/24 23:54 Risperidone (Risperidone 0.25 Mg Tab) 0.5 mg PO QAM [facility] Stop: 02/10/24 08:59 Last Admin: 01/11/24 08:23 Dose: 0.5 mg Risperidone (Risperidone 1 Mg Tablet) 1 mg PO HS [facility] Stop: 02/09/24 21:59 Last Admin: 01/10/24 22:28 Dose: 1 mg Sertraline HCl (Sertraline Hcl 100 Mg Tablet) 200 mg PO QAM [facility] Stop: 02/09/24 08:59 Last Admin: 01/11/24 08:23 Dose: 200 mg Sodium Chloride (Sodium Chloride 0.65% Na Soln 45 Ml ([place])) 1 - 2 sprays NA PRN PRN PRN Reason: Nasal Dryness/Congestion Stop: 02/07/24 23:54 Mental Health & Subst Abuse Tx Psychiatrist Date Of Appointment With Psychiatric Provider: unknown Post Discharge Appointments Primary Care Physician Name Of Family Doctor/PCP: Pearl Sorenson- Payal Slaughter
[2024-01-11] MEDS: GABAPENTIN 300 MG CAP PO PRN (12:42)
[2024-01-11 14:42] LABS: Marijuana Quant, GCMS Urine 975 ng/mL (<5)
[2024-01-12 07:16] LABS: Estimated Average Glucose 111 mg/dl; Hemoglobin A1C 5.5 % (4.5-5.6)
[2024-01-12] MEDS: ARIPiprazole 5 MG TAB PO SCH (07:45)
--- NOTE | 2024-01-12 09:12 | Psychiatric Progress Note ---
Date of Service January 12, 2024 Impression / Recommendations Impression 33-year-old man with a history of possible bipolar disorder versus personality disorder as well as trauma, OCD and polysubstance use disorder admitted for worsened depression and SI in context of conflict with peer at [employer] resulting in him being asked to leave. 01/12/2024: Mood starting to improve with initiation of abilify today and gabapentin as prn for anxiety. He requests to have gabapentin scheduled since it has been very helpful so far. He's feeling optimistic that the benefits will continue. He did struggle with sleep last night, will monitor this given history of possible BPAD and low dose abilify which not provide enough mood stabilization in setting of concurrent sertraline use 9though no other signs of petey or hypomania and he has been on high doses of sertraline in the past for monotherapy). Overall, I spent a total of 30 minutes on this case including meeting with the patient, reviewing the chart, nursing report, multidisciplinary team meeting, orders, and documentation. (1) Depression with suicidal ideation: (2) Alcohol use: (3) Substance use: (4) Narcissistic personality disorder: (5) Suicidal ideation: Plan 01/12/2024: -Abilify 5 mg -Schedule gabapentin 300mg TID 01/11/2024: -Discontinue risperidone -Start abilify 5mg tomorrow AM -gabapentin 300mg TID prn for alcohol cravings and anxiety -AWSS discontinued as has not been scoring outside timeframe of concern for acute withdrawal symptoms 01/10/2024: -Increase risperidone to 0.5mg qAM and 1mg HS -Continue sertraline 200mg qd -He declines option to start naltrexone, prefers to consider Antabuse in the future after period of structured sobriety via residential tx -Continue AWSS 01/09/2024: The patient was admitted to the [facility] ([facility] inpatient mental health unit) on q15 min checks (behavioral with suicide precautions) for safety. The patient will participate in group, recreational, and milieu therapies and will be offered additional individual and family sessions as clinically appropriate. -Resume Zoloft 200mg po qam -Start Risperdal 0.5 mg PO BID -Resume Hydroxyzine 50mg BID -Monitor mood and behavior Suicide Risk Level Suicide Risk Level: Moderate (q15 min suicide checks) (mood improving) Risk Factors Assessment Do You Have Access To A Gun?: No Protective Factors Assessment Employed: Yes Interval History Identifying Information JOURDAN PERAZA is a 33-year-old M who is currently homeless with a history of Mood Disorder, polysubstance use, OCD and trauma and was admitted on 01/08/24 23:05 on a 201 voluntary. Chief Complaint "It's like night and day with my anxiety". Review of Systems Sleep Information Total Hours of Sleep: 5.30 Sleep Comments: PRN Vistaril and Neurontin Meal Information Percent Meal Consumed - Breakfast: 50 Percent Meal Consumed - Lunch: 75 Percent Meal Consumed - Dinner: 100 Subjective Subjective Patient was seen & assessed and interval progress reviewed with treatment team nursing and social work. Reported yesterday feeling "relieved and more optimisti c". Today reports significant improvement in anxiety after starting gabapentin prn. Feels he can better focus and feeling more capable of tackling his various stressors. Notes that he also had less ruminations and intrusive thoughts today which he wonders might be from the abilify. He's pleased with the medication effects so far. he did struggle with sleep last night, he isn't sure if this could be due to medication side effects. Working on setting up support meeting. Physical Exam Psychiatric Orientation: alert and oriented x 3 Apperance: appropriately dressed Eye Contact: good eye contact Speech: normal rate/rhythm/volume of speech Affect: + anxious affect Mood: + depressed mood and + anxious mood Thought Process: goal directed thought process Thought Content: + cognitive distortions and reality based without delusions Suicidal Thoughts: denies suicidal thoughts and denies suicidal plan Homicidal Thoughts: denies homicidal thoughts Hallucinations: no auditory hallucinations and no visual hallucinations Cognition: recent memory grossly intact and remote memory grossly intact Insight: + limited insight Judgment: + limited judgement Vital Signs (Past 24 Hours) Last Vital Signs Temp 36.6 C 01/12/24 06:43 Pulse 76 01/12/24 06:44 Resp 16 01/12/24 06:43 BP 117/78 01/12/24 06:44 Pulse Ox 98 01/11/24 06:00 O2 Del Method Room Air 01/11/24 06:00 Results & Data ([facility]) Laboratory Results Laboratory Results - last 24 hr 01/08/24 01/11/24 18:10 07:02 Estimat Average Glucose 111 Hemoglobin A1c 5.5 U Marijuana THC Carboxy 975 H Drug Screen Comment SEE NOTE Current Inpatient Medications Current Inpatient Medications: Current Inpatient Medications Acetaminophen (Acetaminophen 325 Mg Tab) 650 mg PO Q4H PRN PRN Reason: Headache or Minor Fever Stop: 02/07/24 23:54 Last Admin: 01/11/24 09:52 Dose: 650 mg Al Hydrox/Mg Hydrox/Simethicone (Aluminum/Magnesium Susp 30 Ml Udc) 30 ml PO Q4H PRN PRN Reason: GI Upset Stop: 02/07/24 23:54 Aripiprazole (Aripiprazole 5 Mg Tab) 5 mg PO QAM [facility] Stop: 02/11/24 08:59 Last Admin: 01/12/24 07:45 Dose: 5 mg Bismuth Subsalicylate (Bismuth Subsalicylate Liqd 236 Ml) 15 ml PO PRN PRN PRN Reason: Loose Stool Stop: 02/07/24 23:54 Gabapentin (Gabapentin 300 Mg Cap) 300 mg PO TID PRN PRN Reason: Anxiety/Agitation Stop: 02/10/24 13:59 Last Admin: 01/12/24 07:45 Dose: 300 mg Hydroxyzine HCl (Hydroxyzine Hcl 25 Mg Tab) 50 mg PO BID PRN PRN Reason: Anxiety Stop: 02/08/24 20:59 Last Admin: 01/11/24 21:15 Dose: 50 mg Magnesium Hydroxide (Magnesium Hydroxide Susp 30 Ml Udc) 30 ml PO DAILY PRN PRN Reason: Constipation Stop: 02/07/24 23:54 Miscellaneous (Remove Nicoderm Patch) 1 each N/A DAILY@0859 [facility] Stop: 02/09/24 08:58 Last Admin: 01/12/24 07:45 Dose: 1 each Nicotine (Nicotine 21 Mg/24 Hr Tdsy) 1 patch TD QAM [facility] Stop: 02/09/24 08:59 Last Admin: 01/12/24 07:44 Dose: 1 patch Nicotine Polacrilex (Nicotine Polacrilex 2 Mg Gum) 1 piece MT PRN PRN PRN Reason: Nicotine Withdrawal Symptoms Stop: 02/07/24 23:54 Sertraline HCl (Sertraline Hcl 100 Mg Tablet) 200 mg PO QAM [facility] Stop: 02/09/24 08:59 Last Admin: 01/12/24 07:45 Dose: 200 mg Sodium Chloride (Sodium Chloride 0.65% Na Soln 45 Ml ([place])) 1 - 2 sprays NA PRN PRN PRN Reason: Nasal Dryness/Congestion Stop: 02/07/24 23:54 Mental Health & Subst Abuse Tx Psychiatrist Date Of Appointment With Psychiatric Provider: unknown Post Discharge Appointments Primary Care Physician Name Of Family Doctor/PCP: Pearl Sorenson- Payal Slaughter
[2024-01-12] MEDS: GABAPENTIN 300 MG CAP PO SCH (21:01)
--- NOTE | 2024-01-13 09:03 | Psychiatric Progress Note ---
Date of Service January 13, 2024 Impression / Recommendations Impression 33-year-old man with a history of possible bipolar disorder versus personality disorder as well as trauma, OCD and polysubstance use disorder admitted for worsened depression and SI in context of conflict with peer at [employer] resulting in him being asked to leave. 01/13/2024: Slept a bit better last night, mood continuing to improve. Having support meeting today. Possible side effects from abilify but he wishes to continue with this for now, continues to find his medications very helpful. No symptoms of hypomania or petey. Ongoing motivational interviewing regarding substance use, he continues to be in action phase and plans to attend residential substance use treatment. Overall, I spent a total of 28 minutes on this case including meeting with the patient, reviewing the chart, nursing report, multidisciplinary team meeting, orders, and documentation. (1) Depression with suicidal ideation: (2) Alcohol use: (3) Substance use: (4) Suicidal ideation: Plan 01/13/2024: -Continue current medications and tx plan. 01/12/2024: -Abilify 5 mg -Schedule gabapentin 300mg TID 01/11/2024: -Discontinue risperidone -Start abilify 5mg tomorrow AM -gabapentin 300mg TID prn for alcohol cravings and anxiety -AWSS discontinued as has not been scoring outside timeframe of concern for acute withdrawal symptoms 01/10/2024: -Increase risperidone to 0.5mg qAM and 1mg HS -Continue sertraline 200mg qd -He declines option to start naltrexone, prefers to consider Antabuse in the future after period of structured sobriety via residential tx -Continue AWSS 01/09/2024: The patient was admitted to the [facility] ([facility] mental health unit) on q15 min checks (behavioral with suicide precautions) for safety. The patient will participate in group, recreational, and milieu therapies and will be offered additional individual and family sessions as clinically appropriate. -Resume Zoloft 200mg po qam -Start Risperdal 0.5 mg PO BID -Resume Hydroxyzine 50mg BID -Monitor mood and behavior Suicide Risk Level Suicide Risk Level: Moderate (q15 min suicide checks) (mood improving, denies SI) Risk Factors Assessment Do You Have Access To A Gun?: No Protective Factors Assessment Employed: Yes Interval History Identifying Information JOURDAN PERAZA is a 33-year-old M who is currently homeless with a history of Mood Disorder, polysubstance use, OCD and trauma and was admitted on 01/08/24 23:05 on a 201 voluntary. Chief Complaint "I think I'm having some caffeine withdrawal". Review of Systems Sleep Information Total Hours of Sleep: 5.5 Sleep Comments: PRN Vistaril and Neurontin Meal Information Percent Meal Consumed - Breakfast: 100 Percent Meal Consumed - Lunch: 100 Percent Meal Consumed - Dinner: 100 Subjective Subjective Patient was seen & assessed and interval progress reviewed with treatment team nursing and social work. Feels he slept a bit better. He reports experiencing a headache, which he attributes to caffeine withdrawal and dehydration. He mentions a habitual overindulgence in caffeine, which he is currently trying to monitor and control due to its effect on his anxiety. Continues to find medication adjustments helpful. Had some possible side effects of tiredness occurring on consecutive days midmorning which lasts about an hour and then resolves as well some muscle tightness that makes him feel like he needs to stretch. Reviewed this could be a side effect from abilify. Discussed option to decrease dose or discontinue but he prefers to continue with abilify as it's been very helpful for his ruminative and obsessive thoughts. Reviewed warning signs for acute dystonic reaction, he denies any of these symptoms. Physical Exam Psychiatric Orientation: alert and oriented x 3 Apperance: appropriately dressed Eye Contact: good eye contact Speech: normal rate/rhythm/volume of speech Affect: + constricted affect Mood: + anxious mood Thought Process: goal directed thought process Thought Content: reality based without delusions Suicidal Thoughts: denies suicidal thoughts and denies suicidal plan Homicidal Thoughts: denies homicidal thoughts Hallucinations: no auditory hallucinations and no visual hallucinations Cognition: recent memory grossly intact and remote memory grossly intact Insight: + fair insight Judgment: + fair judgement Vital Signs (Past 24 Hours) Last Vital Signs Temp 36.5 C 01/13/24 06:33 Pulse 84 01/13/24 06:34 Resp 16 01/13/24 06:33 BP 114/74 01/13/24 06:34 Pulse Ox 98 01/11/24 06:00 O2 Del Method Room Air 01/11/24 06:00 Results & Data ([facility]) Current Inpatient Medications Current Inpatient Medications: Current Inpatient Medications Acetaminophen (Acetaminophen 325 Mg Tab) 650 mg PO Q4H PRN PRN Reason: Headache or Minor Fever Stop: 02/07/24 23:54 Last Admin: 01/12/24 12:22 Dose: 650 mg Al Hydrox/Mg Hydrox/Simethicone (Aluminum/Magnesium Susp 30 Ml Udc) 30 ml PO Q4H PRN PRN Reason: GI Upset Stop: 02/07/24 23:54 Aripiprazole (Aripiprazole 5 Mg Tab) 5 mg PO [facility] Stop: 02/11/24 08:59 Last Admin: 01/13/24 08:54 Dose: 5 mg Bismuth Subsalicylate (Bismuth Subsalicylate Liqd 236 Ml) 15 ml PO PRN PRN PRN Reason: Loose Stool Stop: 02/07/24 23:54 Gabapentin (Gabapentin 300 Mg Cap) 300 mg PO TID [facility] Stop: 02/11/24 20:59 Last Admin: 01/13/24 08:54 Dose: 300 mg Hydroxyzine HCl (Hydroxyzine Hcl 25 Mg Tab) 50 mg PO BID PRN PRN Reason: Anxiety Stop: 02/08/24 20:59 Last Admin: 01/12/24 23:04 Dose: 50 mg Magnesium Hydroxide (Magnesium Hydroxide Susp 30 Ml Udc) 30 ml PO DAILY PRN PRN Reason: Constipation Stop: 02/07/24 23:54 Miscellaneous (Remove Nicoderm Patch) 1 each N/A DAILY@0859 [facility] Stop: 02/09/24 08:58 Last Admin: 01/13/24 08:53 Dose: 1 each Nicotine (Nicotine 21 Mg/24 Hr Tdsy) 1 patch TD [facility] Stop: 02/09/24 08:59 Last Admin: 01/13/24 08:54 Dose: 1 patch Nicotine Polacrilex (Nicotine Polacrilex 2 Mg Gum) 1 piece MT PRN PRN PRN Reason: Nicotine Withdrawal Symptoms Stop: 02/07/24 23:54 Sertraline HCl (Sertraline Hcl 100 Mg Tablet) 200 mg PO [facility] Stop: 02/09/24 08:59 Last Admin: 01/13/24 08:54 Dose: 200 mg Sodium Chloride (Sodium Chloride 0.65% Na Soln 45 Ml ([place])) 1 - 2 sprays NA PRN PRN PRN Reason: Nasal Dryness/Congestion Stop: 02/07/24 23:54 Mental Health & Subst Abuse Tx Psychiatrist Name of Psychiatrist: Pearl Stephens Psychiatrist's Date Of Appointment With Psychiatric Provider: unknown Time of Appointment with Psychiatrist: Please follow up to resume services when insurance is available Psychiatric Appointment Comment: [address] [place] [address] Therapist Name of Therapist: Please follow up with therapy when insurance is available Therapy Appointment Comment: Refer to the list of resources provided Post Discharge Appointments Primary Care Physician Name Of Family Doctor/PCP: [facility] Date of Future Appointment with PCP: 02/13/2024 Time of Appointment with PCP: 9:45AM Provider Appointment Comment: [address] [place] [address] [place] [address] Contact Information Discharge
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
[2024-01-14] MEDS ORDERED: DESTROY THIS MEDICATION ONE (09:43)
== END 2024-01-14 11:10 | disposition home or self-care (01) | DRG 885 ==
LOC: ED 17:26 → 3S 23:05 → SUATTDRO 23:05 → 3S 23:15

== ENCOUNTER 2024-07-14 03:06 | Inpatient (IN) ==
--- NOTE | 2024-07-14 03:17 | Emergency Department Note ---
History of Present Illness General Chief complaint: Abdominal Pain Stated complaint: SEVERE ABDOMINAL PAIN Time Seen by Provider: 07/14/24 03:08 History of Present Illness This 34-year-old male presents ER complaining of severe abdominal pain with nausea vomiting and loose stool. Patient had his appendix surgically removed and he has had a bowel obstruction. Patient denies chest pain, cough, congestion. He complains of subjective fever and chills. EMS gave fentanyl and Zofran in the field. Home Medications Medication Instructions Recorded Confirmed Type hydroxyzine HCl 25 mg tablet 50 mg PO BID PRN Anxiety 07/07/23 07/14/24 History sertraline 100 mg tablet 200 mg (2 x 100 mg) PO DAILY OCD 01/14/24 07/14/24 Rx 30 days #60 tabs Abilify 5 mg PO DAILY 07/14/24 07/14/24 History Allergies Allergy/AdvReac Type Severity Reaction Status Date / Time No Known Allergies Allergy Verified 07/07/23 20:23 Past Med/Surg History Problem List (Updated 07/14/24 @ 04:24 by Isabel Gracia PA-C) Ileus (Acute) Fever (Acute) Diverticulitis (Acute) Alcohol use disorder Depression, unspecified Obsessive compulsive disorder Hypoxia (Acute) Mycoplasma pneumoniae pneumonia (Acute) Community acquired pneumonia Polysubstance dependence TANIYA (acute kidney injury) (Acute) Medical History (Updated 07/14/24 @ 04:24 by Isabel Gracia PA-C) Alcohol use Depression with suicidal ideation Substance use Suicidal ideation Respiratory failure Current every day vaping Acute respiratory failure with hypoxia Histrionic personality disorder Borderline personality disorder Pilar cyst Polysubstance overdose Toxic effect of isopropanol No pertinent family history Meckel's diverticulum perforation Bowel obstruction Surgical History No pertinent past surgical history H/O right inguinal hernia repair History of appendectomy Social History Smoking Status: Current every day smoker Tobacco Type: E-cigarettes / Vaping Do You Dip or Chew Tobacco: No; Hx Alcohol Use: No Hx Substance Use: No Preferred Language: Italian Communication Ability: Effective Patient Registrar Required: No Beliefs That Will Affect Care: None Current Living Situation: Alone and Significant Other Current Living Situation Comment: apartment with girlfriend Feels Safe at Home: Yes Gender Identity: Male Assistive Devices: None Review of Systems A total of 10 systems reviewed and were otherwise negative Physical Exam Vital Signs Vital Signs - 24 hr 07/14/24 03:09 07/14/24 03:09 07/14/24 03:11 Temperature 37.9 C H Temperature Source Oral Pulse Rate 134 H 137 H Pulse Rate [Apical] 126 H Respiratory Rate 20 Respiratory Effort / Characteristics Non-Labored Respiratory Depth Normal Respiratory Pattern Regular Blood Pressure 103/53 L Blood Pressure [Right Arm] Blood Pressure Mean 69 Blood Pressure Mean [Right Arm] Pulse Oximetry 92 Oxygen Delivery Method Room Air Oxygen Flow Rate Sepsis Recent Fever Within 48 Hours Yes Sepsis New/Unexplained Change in Mental Status N/A Sepsis Action Taken by Nursing No Action Required 07/14/24 03:14 07/14/24 04:22 07/14/24 04:35 Temperature 36.8 C Temperature Source Oral Pulse Rate Pulse Rate [Apical] 108 H Respiratory Rate 18 Respiratory Effort / Characteristics Non-Labored Respiratory Depth Normal Respiratory Pattern Regular Blood Pressure Blood Pressure [Right Arm] 106/70 Blood Pressure Mean Blood Pressure Mean [Right Arm] 82 Pulse Oximetry 96 95 Oxygen Delivery Method Nasal Cannula Room Air Oxygen Flow Rate 2 Sepsis Recent Fever Within 48 Hours Sepsis New/Unexplained Change in Mental Status Sepsis Action Taken by Nursing VITALS: Vitals are noted on the nurse's note and reviewed by myself. Vital signs stable. GENERAL: White male who appears in pain, in no acute distress, nondiaphoretic, well-developed well-nourished. SKIN: Capillary reflex less than 2 seconds. HEENT: Normocephalic. PERRLA. EOMI. Nares patent. Mucous membranes moist. Neck is supple without nuchal rigidity. HEART: Regular rate and rhythm LUNGS: Clear to auscultation bilaterally without wheezes, rales or rhonchi. No retractions or accessory muscle use. ABDOMEN: Positive bowel sounds x 4. Normal tympanic percussion. Soft, diffusely tender to palpation with increased pain midline, without masses or organomegaly. Montanez sign negative. No guarding or rebound tenderness. no CVA tenderness MUSCULOSKELETAL: No gross musculoskeletal defects. NEURO: Patient was alert and oriented to person place and time. No focal neurological deficits. Course Administered Medications Fentanyl Citrate (Fentanyl Citrate Pf 100 Mcg/2 Ml Vial) 50 mcg IV Q15M PRN PRN Reason: Pain Stop: 07/28/24 03:12 Last Admin: 07/14/24 03:25 Dose: 50 mcg Documented By: HEMANT Discontinued Medications Dicyclomine HCl (Dicyclomine Hcl 10 Mg/Ml 2 Ml Amp/Vial) 20 mg IM NOW ONE Stop: 07/14/24 03:14 Last Admin: 07/14/24 03:25 Dose: 20 mg Documented By: HEMANT Acetaminophen (Ofirmev) 1,000 mg in 100 mls @ 400 mls/hr IV NOW STA Stop: 07/14/24 03:27 Last Infusion: 07/14/24 03:55 Dose: Infused Documented By: Admin: 07/14/24 03:26 Dose: 400 mls/hr Documented By: HEMANT Sodium Chloride (Nss) 1,000 mls @ 999 mls/hr IV .Q1H1M ONE Stop: 07/14/24 04:13 Last Infusion: 07/14/24 04:44 Dose: Infused Documented By: Admin: 07/14/24 03:25 Dose: 999 mls/hr Documented By: HEMANT Piperacillin Sod/Tazobactam Sod (Zosyn) 4.5 gm in 100 mls @ 200 mls/hr IV NOW ONE; Protocol Stop: 07/14/24 04:51 Last Admin: 07/14/24 04:44 Dose: 200 mls/hr Documented By: HEMANT Ioversol (Optiray 320 100ml) 100 ml IV ONCE ONE Stop: 07/14/24 03:44 Last Admin: 07/14/24 03:44 Dose: 93 ml Documented By: CAROL Ondansetron HCl (Ondansetron Inj 2 Mg/Ml 2 Ml Vial) 4 mg IV NOW STA Stop: 07/14/24 03:14 Last Admin: 07/14/24 03:25 Dose: 4 mg Documented By: HEMANT Medical Decision Making Medical Records Attestation: I reviewed the patient's medical records. Home Medications Current Medication List: was personally reviewed by me Laboratory Data Attestation: I reviewed the patient's lab results. 07/14/24 03:14 07/14/24 03:14 Lab Results 07/14/24 07/14/24 07/14/24 Range/Units 03:14 03:17 03:38 WBC 5.32 (4.8-10.8) K/ul RBC 5.38 (4.70-6.10) M/uL Hgb 14.7 (14.0-18.0) g/dl POC Hgb 15.3 (14.0-18.0) g/dl Hct 43.4 (42.0-52.0) % POC Hct 45 (42-52) % MCV 80.7 (80.0-100.0) fL MCH 27.3 (25.0-34.0) pg MCHC 33.9 (32.0-36.0) g/dL RDW Std Deviation 38.7 (36.4-46.3) fL RDW Coeff of Mary 13.4 (11.5-14.5) % Plt Count 233 (130-400) K/uL MPV 11.0 (9.4-12.4) fL Immature Gran % (Auto) 0.0 % Neut % (Auto) 85.3 % Lymph % (Auto) 11.1 % Coleman % (Auto) 3.4 % Eos % (Auto) 0.0 % Baso % (Auto) 0.2 % Neut # (Auto) 4.54 (1.40-6.50) K/uL Lymph # (Auto) 0.59 L (1.20-3.40) K/uL Coleman # (Auto) 0.18 (0.11-0.59) K/uL Eos # (Auto) 0.00 (0.00-0.50) K/uL Baso # (Auto) 0.01 (0.00-0.20) K/uL Immature Gran # (Auto) 0.00 L (0.01-0.20) K/uL POC Sodium 140 (135-144) mmol/L Sodium 139 (136-145) mmol/L POC Potassium 4.1 (3.3-5.0) mmol/L Potassium 4.0 (3.5-5.1) mmol/L POC Chloride 104 (101-112) mmol/L Chloride 106 (98-107) mmol/L Carbon Dioxide 25 (21-32) mmol/L POC Total CO2 23 L (24-31) mmol/L Anion Gap 8 (3-11) POC Anion Gap 17.0 (16-25) mmol/L POC BUN 25 H (7-18) mg/dl BUN 23 (6-23) mg/dl Creatinine 0.90 (0.6-1.4) mg/dl POC Creatinine 1.0 (0.6-1.3) mg/dl Est Cr Clr Drug Dosing 120.8 ml/min eGFR 113.51 BUN/Creatinine Ratio 25.6 H (10-20) Glucose 140 H (70-99(Fasting)) mg/dl POC Glucose (other) 145 H (70-99) mg/dl Calcium 8.6 (8.6-10.3) mg/dl POC Ioniz Calcium Melecio 1.09 L (1.12-1.32) mmol/l Total Bilirubin 0.9 (0.2-1.0) mg/dl AST 15 (13-39) U/L ALT 10 (7-52) U/L Alkaline Phosphatase 46 (34-104) U/L Troponin I High Sens 2.6 (0-20) pg/ml Total Protein 6.0 (6.0-8.3) gm/dl Albumin 3.9 (3.4-5.0) gm/dl Globulin 2.1 L (2.5-4.0) gm/dl Albumin/Globulin Ratio 1.9 (0.9-2) Lipase 10 L (11-82) U/L Urine Color Urine Appearance (Clear) Urine pH (4.5-7.5) Ur Specific Bom[place]en (1.000-1.030) Urine Protein (Negative) Urine Glucose (UA) (Negative) Urine Ketones (Negative) Urine Blood (Negative) Urine Nitrite (Negative) Urine Bilirubin (Negative) Urine Urobilinogen (Negative) Ur Leukocyte Esterase (Negative) Urine WBC (Auto) (0-5) /hpf Urine RBC (Auto) (0-2) /hpf U Hyaline Cast (Auto) (0-2) /lpf U Epithel Cells (Auto) (0-2) /hpf Urine Bacteria (Auto) (None Seen) Urine Opiates Screen (Neg) Ur Methadone, Qual (Neg) Urine Fentanyl Screen (Neg) Urine Barbiturates (Neg) Ur Phencyclidine (PCP) (Neg) U Amphetamin/Meth Scrn (Neg) MDMA (Ecstasy) Screen (Neg) U Benzodiazepines Scrn (Neg) Ur Cocaine Metabolite (Neg) U Marijuana (THC) Screen (Neg) Ethyl Alcohol mg/dL < 10.0 (<10.0) mg/dl Adenovirus (PCR) Not Detected (NotDetected) B. pertussis DNA (PCR) Not Detected (NotDetected) B.parapertussis DNA PCR Not Detected (NotDetected) C. pneumoniae DNA (PCR) Not Detected (NotDetected) Coronavirus OC43 (PCR) Not Detected (NotDetected) Coronavirus HKU1 (PCR) Not Detected (NotDetected) Coronavirus 229E (PCR) Not Detected (NotDetected) SARS-CoV-2 (PCR) Not Detected (NotDetected) Coronavirus NL63 (PCR) Not Detected (NotDetected) Human Metapneumovir PCR Not Detected (NotDetected) Influenza Type A (PCR) Not Detected (NotDetected) Influenza Type B (PCR) Not Detected (NotDetected) M. pneumoniae (PCR) Not Detected (NotDetected) Parainfluenza 1 (PCR) Not Detected (NotDetected) Parainfluenza 2 (PCR) Not Detected (NotDetected) Parainfluenza 3 (PCR) Not Detected (NotDetected) Parainfluenza 4 (PCR) Not Detected (NotDetected) RSV (PCR) Not Detected (NotDetected) Entero/Rhino (PCR) Not Detected (NotDetected) 07/14/24 Range/Units 03:59 WBC (4.8-10.8) K/ul RBC (4.70-6.10) M/uL Hgb (14.0-18.0) g/dl POC Hgb (14.0-18.0) g/dl Hct (42.0-52.0) % POC Hct (42-52) % MCV (80.0-100.0) fL MCH (25.0-34.0) pg MCHC (32.0-36.0) g/dL RDW Std Deviation (36.4-46.3) fL RDW Coeff of Mary (11.5-14.5) % Plt Count (130-400) K/uL MPV (9.4-12.4) fL Immature Gran % (Auto) % Neut % (Auto) % Lymph % (Auto) % Coleman % (Auto) % Eos % (Auto) % Baso % (Auto) % Neut # (Auto) (1.40-6.50) K/uL Lymph # (Auto) (1.20-3.40) K/uL Coleman # (Auto) (0.11-0.59) K/uL Eos # (Auto) (0.00-0.50) K/uL Baso # (Auto) (0.00-0.20) K/uL Immature Gran # (Auto) (0.01-0.20) K/uL POC Sodium (135-144) mmol/L Sodium (136-145) mmol/L POC Potassium (3.3-5.0) mmol/L Potassium (3.5-5.1) mmol/L POC Chloride (101-112) mmol/L Chloride (98-107) mmol/L Carbon Dioxide (21-32) mmol/L POC Total CO2 (24-31) mmol/L Anion Gap (3-11) POC Anion Gap (16-25) mmol/L POC BUN (7-18) mg/dl BUN (6-23) mg/dl Creatinine (0.6-1.4) mg/dl POC Creatinine (0.6-1.3) mg/dl Est Cr Clr Drug Dosing ml/min eGFR BUN/Creatinine Ratio (10-20) Glucose (70-99(Fasting)) mg/dl POC Glucose (other) (70-99) mg/dl Calcium (8.6-10.3) mg/dl POC Ioniz Calcium Melecio (1.12-1.32) mmol/l Total Bilirubin (0.2-1.0) mg/dl AST (13-39) U/L ALT (7-52) U/L Alkaline Phosphatase (34-104) U/L Troponin I High Sens (0-20) pg/ml Total Protein (6.0-8.3) gm/dl Albumin (3.4-5.0) gm/dl Globulin (2.5-4.0) gm/dl Albumin/Globulin Ratio (0.9-2) Lipase (11-82) U/L Urine Color Yellow Urine Appearance Clear (Clear) Urine pH 6.0 (4.5-7.5) Ur Specific Bomoseen 1.038 H (1.000-1.030) Urine Protein Trace H (Negative) Urine Glucose (UA) Negative (Negative) Urine Ketones Negative (Negative) Urine Blood Negative (Negative) Urine Nitrite Negative (Negative) Urine Bilirubin Negative (Negative) Urine Urobilinogen Negative (Negative) Ur Leukocyte Esterase Negative (Negative) Urine WBC (Auto) 0-5 (0-5) /hpf Urine RBC (Auto) 11-20 H (0-2) /hpf U Hyaline Cast (Auto) 0-2 (0-2) /lpf U Epithel Cells (Auto) 0-2 (0-2) /hpf Urine Bacteria (Auto) None Seen (None Seen) Urine Opiates Screen Neg (Neg) Ur Methadone, Qual Neg (Neg) Urine Fentanyl Screen Pos H (Neg) Urine Barbiturates Neg (Neg) Ur Phencyclidine (PCP) Neg (Neg) U Amphetamin/Meth Scrn Neg (Neg) MDMA (Ecstasy) Screen Neg (Neg) U Benzodiazepines Scrn Neg (Neg) Ur Cocaine Metabolite Neg (Neg) U Marijuana (THC) Screen Neg (Neg) Ethyl Alcohol mg/dL (<10.0) mg/dl Adenovirus (PCR) (NotDetected) B. pertussis DNA (PCR) (NotDetected) B.parapertussis DNA PCR (NotDetected) C. pneumoniae DNA (PCR) (NotDetected) Coronavirus OC43 (PCR) (NotDetected) Coronavirus HKU1 (PCR) (NotDetected) Coronavirus 229E (PCR) (NotDetected) SARS-CoV-2 (PCR) (NotDetected) Coronavirus NL63 (PCR) (NotDetected) Human Metapneumovir PCR (NotDetected) Influenza Type A (PCR) (NotDetected) Influenza Type B (PCR) (NotDetected) M. pneumoniae (PCR) (NotDetected) Parainfluenza 1 (PCR) (NotDetected) Parainfluenza 2 (PCR) (NotDetected) Parainfluenza 3 (PCR) (NotDetected) Parainfluenza 4 (PCR) (NotDetected) RSV (PCR) (NotDetected) Entero/Rhino (PCR) (NotDetected) Imaging Data Attestation: I personally reviewed and interpreted this imaging study as follows: Radiologist's Impression: Abdomen/Pelvis CT 07/14/24 03:14 Exam(s): CT ABDOMEN + PELVIS With Contrast IV Amt: 93 CC OPTIRAY 320 EXAM: CT Abdomen and Pelvis With Intravenous Contrast CLINICAL HISTORY: Reason for exam: severe pain, hx sbo. TECHNIQUE: Axial computed tomography images of the abdomen and pelvis with intravenous contrast. CTDI is 20.66 mGy and DLP is 1132.08 mGy-cm. Automated exposure control was utilized for the study. A dose lowering technique was utilized adhering to the principles of ALARA. CONTRAST: Patient received 93 CC OPTIRAY 320 of IV contrast COMPARISON: 11/21/22. FINDINGS: Lung bases: Minimal dependent bibasilar subsegmental atelectasis. Mediastinum: Small, sliding hiatal hernia. ABDOMEN: Liver: Unremarkable. No mass. Gallbladder and bile ducts: Unremarkable. No calcified stones. No ductal dilation. Pancreas: Unremarkable. No mass. No ductal dilation. Spleen: Unremarkable. No splenomegaly. Adrenals: Unremarkable. No mass. Kidneys and ureters: Unremarkable. Subcentimeter nonobstructing renal calculi bilaterally. Stomach and bowel: Diverticulosis with mild severity acute diverticulitis in the left lower quadrant associated with a prominent diverticulum and mild mesenteric inflammatory stranding. Midabdominal small bowel anastomotic sutures noted. No significant bowel dilatation or transition point to suggest obstruction, however, there is mild right abdominal small bowel ileus. PELVIS: Appendix: No findings to suggest acute appendicitis. Bladder: Physiologic distention of the urinary bladder. Reproductive: Unremarkable as visualized. ABDOMEN and PELVIS: Intraperitoneal space: Unremarkable. No free air. No significant fluid collection. Bones/joints: No acute fracture. No dislocation. Soft tissues: Small subcutaneous hematoma in the anterior abdominal wall characteristic for injection of medication. Vasculature: Unremarkable. No abdominal aortic aneurysm. Lymph nodes: Multiple, small reactive mesenteric lymph nodes. No pathologic lymph node enlargement. IMPRESSION: 1. No significant bowel dilatation or transition point to suggest obstruction, however, there is mild right abdominal small bowel ileus. Detail limited as no enteric contrast was administered. 2. Diverticulosis with mild severity acute diverticulitis in the left lower quadrant associated with a prominent diverticulum and mild mesenteric inflammatory stranding. No abscess collection or pneumoperitoneum. Electronically signed by: Prudencio Cheek MD 07/14/24 04:20 AM MDM Narrative Prior records/ancillary studies reviewed. Triage Nursing notes reviewed. Additional history obtained from EMS. The patient's history was concerning for abdominal pain. Differential diagnosis: Etiologies such as appendicitis, diverticulitis, PUD, biliary pathology, UTI, pancreatitis, obstruction, mesenteric ischemia, aortic pathology, infections, inflammatory bowel disease, renal colic, as well as others were entertained. Physical examination findings: As above. ER treatment provided: An order was placed for continuous cardiac monitoring. The monitor shows a rate of 60-1 40 with a sinus rhythm per my Independent interpretation. Zofran, fentanyl, Bentyl, IV fluids Zosyn was ordered for diverticulitis and the patient has a fever On reassessment the patient felt better. Diagnostics interpreted by me: ECG: Ordered for tachycardia EKG: Normal sinus, normal intervals, no acute ST-T wave changes, rate of 129. Impression sinus tachycardia into the interpreted by myself The labs Independently Interpreted by myself revealed no worrisome leukocytosis, normal lipase Mild hyperglycemia without DKA neg UA, neg biofire Imaging studies: Chest x-ray with no acute consolidation, pneumothorax or free air per my independent interpretation Consultation: A consultation was placed with the hospitalist. The case was discussed and diagnostics were reviewed. The patient was evaluated in the ER for further treatment. Exam and history seem consistent with diverticulitis with fever and ileus. Patient started antibiotics. He was still moderate amount of pain. Medicine was consulted and the case discussed. He will be admitted to the medical service. No perforation. No abscess. By the evaluation outlined above emergent etiologies such as appendicitis, PUD, biliary pathology, UTI, pancreatitis, obstruction, mesenteric ischemia, aortic pathology, inflammatory bowel disease, renal colic, as well as others were deemed relatively unlikely. The pt informed about the findings as listed above. All questions were answered and pleased with the treatment. The chart was completed utilizing [employer] Speech voice recognition software. Grammatical errors, random word insertions, pronoun errors, and incomplete sentences are an occassional consequence of this system due to software limitations, ambient noise, and hardware issues. Any formal questions or concerns about the content, text, or information contained within the body of this dictation should be directly addressed to the physician underwriting assistant for clarification. Impression & Plan Diverticulitis, Fever, Ileus Discharge Plan Visit Data Chief Complaint: Abdominal Pain Stated Complaint: SEVERE ABDOMINAL PAIN ED Provider: Tierney Vasquez ED Midlevel Provider: Isabel Gracia Discharge Problem: Diverticulitis, Fever, Ileus Patient Disposition: Admitted As Inpatient Condition: Good Forms Stand Alone Forms: My [facility] Prescriptions Prescriptions: No Action hydroxyzine HCl 25 mg tablet 50 mg PO BID PRN (Reason: Anxiety) sertraline 100 mg tablet 200 mg PO DAILY 30 Days Qty: 60 0RF Referrals Referrals: Payal Kelly DO [Primary Care Provider] -
[2024-07-14] MEDS: fentaNYL citrate PF 100 MCG/2 ML VIAL IV PRN (03:25)
[2024-07-14] MEDS: SODIUM CHLORIDE 0.9% 1,000 ML IV ONE (03:25)
[2024-07-14] MEDS: DICYCLOMINE HCL 10 MG/ML 2 ML AMP/VIAL IM ONE (03:25)
[2024-07-14] MEDS: ONDANSETRON INJ 2 MG/ML 2 ML VIAL IV STA (03:25)
[2024-07-14] MEDS: ACETAMINOPHEN 1,000 MG/100 ML VIAL IV STA (03:26)
[2024-07-14 03:33] LABS: iSTAT Hemoglobin 15.3 g/dl (14.0-18.0); iSTAT Ionized Calcium 1.09 mmol/l (1.12-1.32); iSTAT Potassium 4.1 mmol/L (3.3-5.0)
[2024-07-14 03:37] LABS: Basophils # (auto) 0.01 K/uL (0.00-0.20); Basophils % (auto) 0.2 %; Hematocrit (blood only) 43.4 % (42.0-52.0); Hemoglobin 14.7 g/dl (14.0-18.0); Lymphocytes # (auto) 0.59 K/uL (1.20-3.40); Lymphocytes % (auto) 11.1 %; Mean Corpuscular Hemoglobin 27.3 pg (25.0-34.0); Mean Corpuscular Hgb Conc 33.9 g/dL (32.0-36.0); Mean Corpuscular Volume 80.7 fL (80.0-100.0); Monocytes # (auto) 0.18 K/uL (0.11-0.59); Monocytes % (auto) 3.4 %; Neutrophils # (auto) 4.54 K/uL (1.40-6.50); Neutrophils % (auto) 85.3 %; Platelet Count 233 K/uL (130-400); RDW Coefficient of Variation 13.4 % (11.5-14.5); RDW Standard Deviation 38.7 fL (36.4-46.3); Red Blood Count 5.38 M/uL (4.70-6.10); White Blood Count 5.32 K/ul (4.8-10.8)
[2024-07-14] MEDS: OPTIRAY 320 100ml IV ONE (03:44)
[2024-07-14 03:54] LABS: Albumin Globulin Ratio 1.9 (0.9-2); Albumin Level 3.9 gm/dl (3.4-5.0); BUN Creatinine Ratio 25.6 (10-20); Bilirubin,Total 0.9 mg/dl (0.2-1.0); Calcium 8.6 mg/dl (8.6-10.3); Creatinine Clr Calc Pharmacy 120.8 ml/min; Globulin 2.1 gm/dl (2.5-4.0)
[2024-07-14 04:01] LABS: Troponin I High Sensitivity 2.6 pg/ml (0-20)
--- OUTSIDE RECORDS SUMMARY | 2024-07-14 04:02 | External Medical Summary | Summary of Care ---
Author Name Unknown Organization [facility] Address [address] [place] [address] Phone [phone] Care Team Providers Care Siebel Solution Architect Name Role Phone Payal Kelly DO Primary Car e Provider Encounter Details Date Type Department Care Team (Late st Contact Info) Description 02/24/2024 Population Health External Data Unspecified Department Allergies No known active allergiesdocumented as of this encounter (statuses as of 02/24/2024) Medications Medication Sig Dispensed Refills Start Date End Date Status Amoxicillin-Pot Clavulanate 875-125 MG Oral TabletIndications:Acut e non-recurrent pansinusitis Take by mouth 1 Tablet in the morning AND 1 Tablet before bedtime. With food. Until gone.. 20 Tablet 01/05/2022 Active documented as of this encounter (statuses as of 02/24/2024) Social History Tobacco Use Types Packs/Day Years Used Date Smoking Tobacco: Every Day Cigarettes 0.5 24.4 Started: 1999 Smokeless Tobacco: Never Alcohol Use Standard Drinks/Week Comments Not Currently 0 (1 standard drink = 0.6 oz pur e alcohol) Hunger Vital Sign Answer Date Recorded Within [...] as of this encounter Plan of Treatment Upcoming Encounters Date Type Department Care Team (Late st Contact Info) Description 04/27/2024 9:00 AM EDT Office Visit Dermatology [facility], [place] [address] [place] [address] Lalita Schwartz PA-C [address] [place] [address] Health Maintenance Due Date Last Done Comments Pneumococcal Vaccine: Pediatrics (0 to 5 Years) and At-Risk Patients (6 to 64 Years) (1 of 2 - PCV) 1994 Depression Screening 2000 HIV Screening 2003 Hepatitis C Screening 2006 DTaP,Tdap,and Td Vaccines (1 - Tdap) 2007 Hepatitis B (1 of 3 - 19+ 3-dose series) 2007 COVID-19 Vaccine (4 - 2022-2 4 season) 2023 08/22/2021, 01/30/2021, 12/28/2020 Influenza Vaccine (FLU shot) Completed , 07/17/2021, 10/18/2020 GARDASIL-HPV IMMUNIZATION SERIES Aged Out No longer eligible b ased on patient's age to complete this topic MENINGOCOCCAL (MENACTRA/MENVEO) Aged Out No longer eligible b ased on patient's age to complete this topic documented as of this encounter Medical Devices Not on filedocumented as of this encounter Care Teams Siebel Solution Architect Relationship Specialty Start Date End Date Payal Kelly DO [address] [place] [address] PCP - General Family Medicine 01/05/22 documented as of this encounter
--- OUTSIDE RECORDS SUMMARY | 2024-07-14 04:03 | External Medical Summary | Summary of Care ---
Author Name Unknown Organization [facility] [address] [place] [address] Phone [phone] Care Team Providers Care Marine Technician Name Role Phone Payal Kelly DO Primary Car e Provider Reason for Referral * Evaluate & Treat - Unlimited Visits (Within 10 days (routine)) - Authorized Specialty Diagnoses / Procedures Referred By Contac t Referred To Contact Dermatology Diagnoses Cyst, dermoid, arm, left Marnie Pinedo PA-C [address] [place] [address] Referral ID Status Reason Start Date Expiration Date Visits Requested Visits Authorized [id number] Authorized Specialty Services Required 02/23/2024 [id number] Question Answer Referral Priority Within 10 days (routine) Where should this appointment be scheduled? Sandra Are you referring the patient for Mohs Surgery and have a current positive skin cancer biopsy result? No What is the reason for the patient referral? Other Comments Discharge Order Reason for Visit * Reason Comments Lump L arm * Auth/Cert Specialty Diagnoses / Procedures Referred By Contac t Referred To Contact [facility] [address] [place] [address] Phone: [phone] Emergency Medicine [facility] [address] [place] [address] Referral ID Status Reason Start Date Expiration Date Visits Re quested Visits Authorized [id number] Encounter Details Date Type Department Care Team (Late st Contact Info) Description 02/23/2024 4:10 PM EDT - 02/23/2024 4:51 PM EDT Emergency [facility] ([facility]) [address] [place] [address] Raúl Cavanaugh MD [address] [place] [place] [address] Cyst, dermoid, arm, left (Primary Dx) Discharge Disposition: Home - Self Care Allergies No known active allergiesdocumented as of [...] 0.5 24.4 Started: 1999 Smokeless Tobacco: Never Tobacco Cessation:Ready to Q uit: Not Asked; Counseling Given: Not Answered Alcohol Use Standard Drinks/Week Comments Not Currently [...] on file documented as of this encounter Last Filed Vital Signs Vital Sign Reading Time Taken Comments Blood Pressure 137/75 02/23/2024 3:39 PM EDT Pulse 80 02/23/2024 3:39 PM EDT Temperature 36 C (96.8 F) 02/23/2024 3:39 PM EDT Respiratory Rate 22 02/23/2024 3:39 PM EDT Oxygen Saturation 100% 02/23/2024 3:39 PM EDT Inhaled Oxygen Concentration - - Weight 86.2 kg (190 lb) 02/23/2024 3:39 PM EDT Height - - Body Mass Index 28.89 09/10/2017 9:24 AM EST documented in this encounter Discharge Instructions * Discharge Instructions* Marnie Pinedo PA-C - 02/23/2024 4:26 PM EDT Do not manipulate the cyst. A referral has been made for follow up on an outpatient basis with the theater company producer. Sandar will arrange this appointment for you. Review your discharge instructions. Return to the Emergency Deparment if symptoms return, persist, or worsen. documented in this encounter ED Notes * Raúl Cavanaugh MD - 02/23/2024 4:17 PM EDT Images from the original note were not included. HISTORY OF PRESENT ILLNESS Raúl Mar is a 33 year old male who presents to the ED for evaluation of Lump (L arm). The patient was seen at 02/23/24 1617. 33-year-old male with past medical history significant for tobacco abuse disorder presents to the emergency department complaining of a cyst to the left tripcep x 6 months Denies any injury to the area. States that it is tender, but only with palpation. Does not appear to be getting larger in size. No overlying erythema or edema. Review of Systems Constitutional: Negative for chills, diaphoresis, fatigue and fever. Skin: Negative for color change and wound. The patient's allergies, past history, and medications were reviewed. PHYSICAL EXAM Initial Vitals (see all): BP 137/75 | Pulse 80 | Resp 22 | Temp 96.8 | O2 100 %, Room Air, None | Weight 86.18 kg | Height 172.7 cm | Initial Pain Assessment (see all): 2 (mild pain)/10, Dull, location: L arm lump ([facility] Adult Scale 0-10) Physical Exam Vitals and nursing note reviewed. Constitutional: General: He is awake. He is not in acute distress. Appearance: Normal appearance. He is well-developed and well-groomed. He is not ill-appearing, toxic-appearing or diaphoretic. Comments: Well-appearing male in no acute distress. Respirations and speech are unlabored. HENT: Head: Normocephalic and atraumatic. Jaw: There is normal jaw occlusion. Cardiovascular: Rate and Rhythm: Normal rate and regular rhythm. Heart sounds: Normal heart sounds. Pulmonary: Effort: Pulmonary effort is normal. Breath sounds: Normal breath sounds and air entry. Abdominal: General: Bowel sounds are normal. Palpations: Abdomen is soft. Tenderness: There is no abdominal tenderness. Musculoskeletal: Arms: Skin: General: Skin is warm and dry. Capillary Refill: Capillary refill takes less than 2 seconds. Neurological: Mental Status: He is alert and oriented to person, place, and time. Psychiatric: Behavior: Behavior is cooperative. PROCEDURES AND TREATMENTS ED Orders | ED Results MEDICAL DECISION MAKING Nursing notes and vital signs were reviewed. ED Course as of 02/23/24 1626 FriFeb 23, 2024 1624 Advised patient that this is likely benign, based on its external characteristics and clinicalfindings. Referred to Dermatology for follow up on an outpatient basis. Patient in agreement with plan. Educated on strict return to ED instructions. Understanding verbalized by patient. [JT] ED Course User Index [JT] Marnie Pinedo PA-C Differential Diagnoses Based on my history, physical exam, and evaluation, the differential includes, but is not limited, to the following diagnoses: inclusion cyst, abscess, lipoma. Clinical Impressions Cyst, dermoid, arm, left Disposition Discharged. The patient's condition at disposition was: stable. - Reassurance offered. - Referral to Dermatology for follow up on an outpatient basis. -Educated on strict return to ED instructions. Understanding verbalized by patient. Discharge Medications None Raúl Cavanaugh was the attending physician who supervised the care of this patient. Marnie Pinedo PA-C ATTENDING ATTESTATION I have discussed the patient's management with the provider listed above and agree with the note, findings, and plan of care. I personally made/approved the management plan and take responsibility for patient management. * Tawanna Lopez RN - 02/23/2024 3:37 PM EDT Pt here for painful lump on L arm. States its been there "since winter". States he is in drug and ETOH treatment. States now that he is sober he wants to get it took care of. documented in this encounter Miscellaneous Notes * ED Regional Operations Manager Note - Deric Sawant RN - 02/23/2024 4:50 PM EDT Pt was D/C prior to this RN evaluation. Pt verbalized discharge instructions. Pt ambulated out of ED with steady gait. FLACC 0. * Pt Handout (on AVS) - Marnie Pinedo PA-C - 02/23/2024 4:25 PM EDT [id number] Epidermoid Cyst, No Infection An epidermoid cyst is a small abnormal growth in the top layers of the skin. It's filled with keratin, the same proteins that make up your hair and nails. An epidermoid cyst may incorrectly be calleda sebaceous cyst. Some general facts about epidermoid cysts: An epidermoid cyst is a sac filled with material from skin secretions. It can grow anywhere on the body. But it's most often found on the face, behind the ears, and on the chest or upper back. It often has an open, enlarged pore in the middle of it. The material in the cyst is often cheesy, fatty, or oily. The material can be thick (like cottage cheese) or liquid. The area around the cyst may smell bad. If the cyst breaks open, the material inside it often smells bad too. The cyst is usually firm and you can usually move it slightly if you try. The cyst can be smaller than a pea or as large as a few inches. It's usually not painful, unless it becomes inflamed or infected. Causes Epidermoid cysts are caused when skin (epidermal) cells move under the skin surface, or are coveredover by it. These cells continue to multiply, like skin does normally. They then form a wall aroundthemselves (cyst) and secrete normal skin material (keratin). In most cases, epidermoid cysts occurfor no known reason. They may also occur because of an injury to the skin or from acne Symptoms Symptoms of an epidermoid cyst include: Feeling a lump just beneath the skin It may or may not be painful The cyst may or may not smell bad The cyst may become inflamed or red The cyst may leak fluid or thick material Home care Epidermoid cysts often go away without any treatment. If your cyst doesn?t go away, and it bothers you, it may be drained or removed. If the cyst drains on its own, it may return. Resist the temptation to squeeze, pop, stick a needle in it, or cut it open. This often leads to an infection and scarring. If it gets severely inflamed or infected, seek medical care. Be sure to clean the cyst area when bathing or showering. Watch for the signs of infection listed below. Follow-up care Follow up with your healthcare provider, or as advised. When to get medical advice Call your healthcare provider right away if any of these occur: Swelling, redness, or pain Pus coming from the cyst Fever of 100.4F (38C) or higher, or as advised by your provider Last Reviewed Date: 11/13/202119990366-9882 [employer]. All rights reserved. This information is not intended as a substitute for professional medical care. Always follow your healthcare professional's instructions. documented in this encounter Plan of Treatment Upcoming Encounters Date Type Department Care Team (Late st Contact Info) Description 04/27/2024 9:00 AM EDT Office Visit Dermatology [facility] [address] [place] [address] Lalita Schwartz PA-C [address] [place] [address] Scheduled Referrals Name Type Priority Associated Diagnoses Orde r Schedule DERMATOLOGY REFERRAL OP Referral Within 10 days (routine) Cyst, dermoid, arm, left Ordered: 02/23/2024 Health Maintenance Due Date Last Done Comments [...] Not on filedocumented as of this encounter Visit Diagnoses Diagnosis Cyst, dermoid, arm, left- Primary documented in this encounter Care Teams Marine Technician Relationship Specialty Start Date End Date Payal Kelly DO [address] [place] [address] PCP - General Family Medicine 01/05/22 documented as of this encounter
--- NOTE | 2024-07-14 04:21 | CT Scan Report ---
Exam(s): CT ABDOMEN + PELVIS With Contrast IV Amt: 93 CC OPTIRAY 320 EXAM: CT Abdomen and Pelvis With Intravenous Contrast CLINICAL HISTORY: Reason for exam: severe pain, hx sbo. TECHNIQUE: Axial computed tomography images of the abdomen and pelvis with intravenous contrast. CTDI is 20.66 mGy and DLP is 1132.08 mGy-cm. Automated exposure control was utilized for the study. A dose lowering technique was utilized adhering to the principles of ALARA. CONTRAST: Patient received 93 CC OPTIRAY 320 of IV contrast COMPARISON: 11/21/22. FINDINGS: Lung bases: Minimal dependent bibasilar subsegmental atelectasis. Mediastinum: Small, sliding hiatal hernia. ABDOMEN: Liver: Unremarkable. No mass. Gallbladder and bile ducts: Unremarkable. No calcified stones. No ductal dilation. Pancreas: Unremarkable. No mass. No ductal dilation. Spleen: Unremarkable. No splenomegaly. Adrenals: Unremarkable. No mass. Kidneys and ureters: Unremarkable. Subcentimeter nonobstructing renal calculi bilaterally. Stomach and bowel: Diverticulosis with mild severity acute diverticulitis in the left lower quadrant associated with a prominent diverticulum and mild mesenteric inflammatory stranding. Midabdominal small bowel anastomotic sutures noted. No significant bowel dilatation or transition point to suggest obstruction, however, there is mild right abdominal small bowel ileus. PELVIS: Appendix: No findings to suggest acute appendicitis. Bladder: Physiologic distention of the urinary bladder. Reproductive: Unremarkable as visualized. ABDOMEN and PELVIS: Intraperitoneal space: Unremarkable. No free air. No significant fluid collection. Bones/joints: No acute fracture. No dislocation. Soft tissues: Small subcutaneous hematoma in the anterior abdominal wall characteristic for injection of medication. Vasculature: Unremarkable. No abdominal aortic aneurysm. Lymph nodes: Multiple, small reactive mesenteric lymph nodes. No pathologic lymph node enlargement. IMPRESSION: 1. No significant bowel dilatation or transition point to suggest obstruction, however, there is mild right abdominal small bowel ileus. Detail limited as no enteric contrast was administered. 2. Diverticulosis with mild severity acute diverticulitis in the left lower quadrant associated with a prominent diverticulum and mild mesenteric inflammatory stranding. No abscess collection or pneumoperitoneum. Electronically signed by: Prudencio Cheek MD 07/14/24 04:20 AM
[2024-07-14 04:31] LABS: Adenovirus PCR Not Detected (NotDetected); Bordetella parapertussis PCR Not Detected (NotDetected); Bordetella pertussis PCR Not Detected (NotDetected); Chlamydia pneumoniae PCR Not Detected (NotDetected); Coronavirus 229E PCR Not Detected (NotDetected); Coronavirus CoV-2 (COVID19)PCR Not Detected (NotDetected); Coronavirus HKU1 PCR Not Detected (NotDetected); Coronavirus NL63 PCR Not Detected (NotDetected); Coronavirus OC43PCR Not Detected (NotDetected); Human Metapneumovirus PCR Not Detected (NotDetected); Influenza A PCR Not Detected (NotDetected); Influenza B PCR Not Detected (NotDetected); Mycoplasma pneumoniae PCR Not Detected (NotDetected); Parainfluenza Virus 1 PCR Not Detected (NotDetected); Parainfluenza Virus 2 PCR Not Detected (NotDetected); Parainfluenza Virus 3 PCR Not Detected (NotDetected); Parainfluenza Virus 4 PCR Not Detected (NotDetected); Respiratory Syncytial VirusPCR Not Detected (NotDetected); Rhinovirus/Enterovirus PCR Not Detected (NotDetected)
[2024-07-14 04:39] LABS: Appearance Urine Clear (Clear); Bacteria Urine Automated None Seen (None Seen); Bilirubin Urine Negative (Negative); Blood Urine Negative (Negative); Cast Urine Automated 0-2 /lpf (0-2); Color Urine Yellow; Epithelial Cell Urine Auto 0-2 /hpf (0-2); Glucose Urine UA Negative (Negative); Ketones Urine Negative (Negative); Leukocyte Esterase Urine Negative (Negative); Nitrite Urine Negative (Negative); Protein Urine Trace (Negative); Specific Gravity Urine 1.038 (1.000-1.030); Urobilinogen Urine Negative (Negative); WBC Urine Automated 0-5 /hpf (0-5)
[2024-07-14] MEDS: PIPERACILLIN/TAZOBACTAM 4.5 GM/100 ML BAG IV ONE (04:44)
[2024-07-14 04:50] LABS: Amphetamines+Metham, Urine Neg (Neg); Barbiturates, Urine Neg (Neg); Benzodiazepine, Urine Neg (Neg); Cocaine, Urine Neg (Neg); Fentanyl, Urine Pos (Neg); MDMA (Ecstacy), Urine Neg (Neg); Marijuana, Urine Neg (Neg); Methadone, Urine Neg (Neg); Opiate, Urine Neg (Neg); Phencyclidine, Urine Neg (Neg)
--- NOTE | 2024-07-14 05:21 | History & Physical Report ---
Date of Service July 14, 2024 Assessment & Plan (1) Diverticulitis: Plan: 34yo male presenting with progressive abdominal pain and nausea. CT as above with acute diverticulitis with ileus. Patient is afebrile, HD stable at present -Admit to medical -NPO except chips/sips -Zosyn -Tylenol and Morphine PRN -Zofran PRN Plan Depression -Continue Sertraline -Continue Hydroxyzine -Continue Abilify F/E/N - LR at 125mL/hr x 1L, electrolytes WNL, NPO for now Ppx - SCDs Code - Full Dispo - Admit to medical History of Present Illness Chief Complaint: abdominal pain Primary Care Provider: Payal Kelly DO Raúl Mar is a 34yo male with history of depression, prior bowel obstruction presenting with abdominal pain. Patient reports several days of diffuse abdominal pain, acutely worsened today. Nausea with non-bloody emesis. Complaining of fever and chills as well as poor appetite and diarrhea. In the ER he is afebrile, tachycardic ER Course: Zosyn Tylenol NSS Dicyclomine Zofran Fentanyl Allergies Allergy/AdvReac Type Severity Reaction Status Date / Time No Known Allergies Allergy Verified 07/07/23 20:23 Home Medications Medication Instructions Recorded Confirmed Type hydroxyzine HCl 25 mg tablet 50 mg PO BID PRN Anxiety 07/07/23 07/14/24 History sertraline 100 mg tablet 200 mg (2 x 100 mg) PO DAILY OCD 01/14/24 07/14/24 Rx 30 days #60 tabs Abilify 5 mg PO DAILY 07/14/24 07/14/24 History Past Med/Surg History Problem List Ileus (Acute) Fever (Acute) Diverticulitis (Acute) Alcohol use disorder Depression, unspecified Obsessive compulsive disorder Hypoxia (Acute) Mycoplasma pneumoniae pneumonia (Acute) Community acquired pneumonia Polysubstance dependence TANIYA (acute kidney injury) (Acute) Medical History Alcohol use Depression with suicidal ideation Substance use Suicidal ideation Respiratory failure Current every day vaping Acute respiratory failure with hypoxia Histrionic personality disorder Borderline personality disorder Pilar cyst Polysubstance overdose Toxic effect of isopropanol No pertinent family history Meckel's diverticulum perforation Bowel obstruction Surgical History No pertinent past surgical history H/O right inguinal hernia repair History of appendectomy Social History Smoking Status: Current every day smoker Tobacco Type: E-cigarettes / Vaping Do You Dip or Chew Tobacco: No; Hx Alcohol Use: No Hx Substance Use: No Preferred Language: Sami Communication Ability: Effective Customer Support Associate Required: No Beliefs That Will Affect Care: None Current Living Situation: Alone and Significant Other Current Living Situation Comment: apartment with girlfriend Feels Safe at Home: Yes Gender Identity: Male Assistive Devices: None Review of Systems Review of Systems: All systems reviewed & are unremarkable except as noted in HPI & below Physical Exam Physical Exam: General: patient resting comfortably, NAD, non-toxic in appearance, AA&O x 4 Skin: warm, dry, intact, no rashes or lesions HEENT: NC/AT, PERRL, EOMI, anicteric sclera, conjunctiva without injection, external ear normal to inspection and nontender, nares patent, moist mucus membranes, dentition intact, no oropharyngeal lesions, neck supple, trachea midline, no LAD, no thyromegaly, no JVD Heart: +S1/S2, regular, tachycardic, no m/r/g Lungs: equal air entry bilaterally, no rales/rhonchi/wheezes Abd: diminished bowel sounds, soft, ND, tender to palpation with some voluntary guarding, no masses/organomegaly/ascites Ext: warm, 2+ pulses in UE/LE bilaterally, no clubbing/cyanosis or edema Neuro: nonfocal, patient AA&O x 4, speech intact, no facial droop, moving all extremities on command with equal strength 5/5 Results & Data Results & Data Vital Signs (Past 12 Hours) Vital Signs Temp Pulse Pulse Resp BP BP Pulse Ox 07/14/24 04:35 108 H 18 106/70 95 07/14/24 04:22 36.8 C 07/14/24 03:14 96 07/14/24 03:11 137 H 07/14/24 03:09 126 H 07/14/24 03:09 37.9 C H 134 H 20 103/53 L 92 O2 Del Method O2 Flow Rate 07/14/24 04:35 Room Air 07/14/24 04:22 07/14/24 03:14 Nasal Cannula 2 07/14/24 03:11 07/14/24 03:09 07/14/24 03:09 Room Air Laboratory Results Laboratory Results WBC 5.32 K/ul (4.8-10.8) 07/14/24 03:14 RBC 5.38 M/uL (4.70-6.10) 07/14/24 03:14 Hgb 14.7 g/dl (14.0-18.0) 07/14/24 03:14 POC Hgb 15.3 g/dl (14.0-18.0) 07/14/24 03:17 Hct 43.4 % (42.0-52.0) 07/14/24 03:14 POC Hct 45 % (42-52) 07/14/24 03:17 MCV 80.7 fL (80.0-100.0) 07/14/24 03:14 MCH 27.3 pg (25.0-34.0) 07/14/24 03:14 MCHC 33.9 g/dL (32.0-36.0) 07/14/24 03:14 RDW Std Deviation 38.7 fL (36.4-46.3) 07/14/24 03:14 RDW Coeff of Mary 13.4 % (11.5-14.5) 07/14/24 03:14 Plt Count 233 K/uL (130-400) 07/14/24 03:14 MPV 11.0 fL (9.4-12.4) 07/14/24 03:14 Immature Gran % (Auto) 0.0 % 07/14/24 03:14 Neut % (Auto) 85.3 % 07/14/24 03:14 Lymph % (Auto) 11.1 % 07/14/24 03:14 [place] % (Auto) 3.4 % 07/14/24 03:14 Eos % (Auto) 0.0 % 07/14/24 03:14 Baso % (Auto) 0.2 % 07/14/24 03:14 Neut # (Auto) 4.54 K/uL (1.40-6.50) 07/14/24 03:14 Lymph # (Auto) 0.59 K/uL (1.20-3.40) L 07/14/24 03:14 [place] # (Auto) 0.18 K/uL (0.11-0.59) 07/14/24 03:14 Eos # (Auto) 0.00 K/uL (0.00-0.50) 07/14/24 03:14 Baso # (Auto) 0.01 K/uL (0.00-0.20) 07/14/24 03:14 Immature Gran # (Auto) 0.00 K/uL (0.01-0.20) L 07/14/24 03:14 POC Sodium 140 mmol/L (135-144) 07/14/24 03:17 Sodium 139 mmol/L (136-145) 07/14/24 03:14 POC Potassium 4.1 mmol/L (3.3-5.0) 07/14/24 03:17 Potassium 4.0 mmol/L (3.5-5.1) 07/14/24 03:14 POC Chloride 104 mmol/L (101-112) 07/14/24 03:17 Chloride 106 mmol/L (98-107) 07/14/24 03:14 Carbon Dioxide 25 mmol/L (21-32) 07/14/24 03:14 POC Total CO2 23 mmol/L (24-31) L 07/14/24 03:17 Anion Gap 8 (3-11) 07/14/24 03:14 POC Anion Gap 17.0 mmol/L (16-25) 07/14/24 03:17 POC BUN 25 mg/dl (7-18) H 07/14/24 03:17 BUN 23 mg/dl (6-23) 07/14/24 03:14 Creatinine 0.90 mg/dl (0.6-1.4) 07/14/24 03:14 POC Creatinine 1.0 mg/dl (0.6-1.3) 07/14/24 03:17 Est Cr Clr Drug Dosing 120.8 ml/min 07/14/24 03:14 eGFR 113.51 07/14/24 03:14 BUN/Creatinine Ratio 25.6 (10-20) H 07/14/24 03:14 Glucose 140 mg/dl (70-99(Fasting)) H 07/14/24 03:14 POC Glucose (other) 145 mg/dl (70-99) H 07/14/24 03:17 Lactate 2.9 mmol/L (0.4-2.0) H* 07/14/24 04:29 Calcium 8.6 mg/dl (8.6-10.3) 07/14/24 03:14 POC Ioniz Calcium Mele[place] 1.09 mmol/l (1.12-1.32) L 07/14/24 03:17 Total Bilirubin 0.9 mg/dl (0.2-1.0) 07/14/24 03:14 AST 15 U/L (13-39) 07/14/24 03:14 ALT 10 U/L (7-52) 07/14/24 03:14 Alkaline Phosphatase 46 U/L (34-104) 07/14/24 03:14 Troponin I High Sens 2.6 pg/ml (0-20) 07/14/24 03:14 Total Protein 6.0 gm/dl (6.0-8.3) 07/14/24 03:14 Albumin 3.9 gm/dl (3.4-5.0) 07/14/24 03:14 Globulin 2.1 gm/dl (2.5-4.0) L 07/14/24 03:14 Albumin/Globulin Ratio 1.9 (0.9-2) 07/14/24 03:14 Lipase 10 U/L (11-82) L 07/14/24 03:14 Urine Color Yellow 07/14/24 03:59 Urine Appearance Clear (Clear) 07/14/24 03:59 Urine pH 6.0 (4.5-7.5) 07/14/24 03:59 Ur Specific [place] 1.038 (1.000-1.030) H 07/14/24 03:59 Urine Protein Trace (Negative) H 07/14/24 03:59 Urine Glucose (UA) Negative (Negative) 07/14/24 03:59 Urine Ketones Negative (Negative) 07/14/24 03:59 Urine Blood Negative (Negative) 07/14/24 03:59 Urine Nitrite Negative (Negative) 07/14/24 03:59 Urine Bilirubin Negative (Negative) 07/14/24 03:59 Urine Urobilinogen Negative (Negative) 07/14/24 03:59 Ur Leukocyte Esterase Negative (Negative) 07/14/24 03:59 Urine WBC (Auto) 0-5 /hpf (0-5) 07/14/24 03:59 Urine RBC (Auto) 11-20 /hpf (0-2) H 07/14/24 03:59 U Hyaline Cast (Auto) 0-2 /lpf (0-2) 07/14/24 03:59 U Epithel Cells (Auto) 0-2 /hpf (0-2) 07/14/24 03:59 Urine Bacteria (Auto) None Seen (None Seen) 07/14/24 03:59 Urine Opiates Screen Neg (Neg) 07/14/24 03:59 Ur Methadone, Qual Neg (Neg) 07/14/24 03:59 Urine Fentanyl Screen Pos (Neg) H 07/14/24 03:59 Urine Barbiturates Neg (Neg) 07/14/24 03:59 Ur Phencyclidine (PCP) Neg (Neg) 07/14/24 03:59 U Amphetamin/Meth Scrn Neg (Neg) 07/14/24 03:59 MDMA (Ecstasy) Screen Neg (Neg) 07/14/24 03:59 U Benzodiazepines Scrn Neg (Neg) 07/14/24 03:59 Ur Cocaine Metabolite Neg (Neg) 07/14/24 03:59 U Marijuana (THC) Screen Neg (Neg) 07/14/24 03:59 Ethyl Alcohol mg/dL < 10.0 mg/dl (<10.0) 07/14/24 03:14 Adenovirus (PCR) Not Detected (NotDetected) 07/14/24 03:38 B. pertussis DNA (PCR) Not Detected (NotDetected) 07/14/24 03:38 B.parapertussis DNA PCR Not Detected (NotDetected) 07/14/24 03:38 C. pneumoniae DNA (PCR) Not Detected (NotDetected) 07/14/24 03:38 Coronavirus OC43 (PCR) Not Detected (NotDetected) 07/14/24 03:38 Coronavirus HKU1 (PCR) Not Detected (NotDetected) 07/14/24 03:38 Coronavirus 229E (PCR) Not Detected (NotDetected) 07/14/24 03:38 SARS-CoV-2 (PCR) Not Detected (NotDetected) 07/14/24 03:38 Coronavirus NL63 (PCR) Not Detected (NotDetected) 07/14/24 03:38 Human Metapneumovir PCR Not Detected (NotDetected) 07/14/24 03:38 Influenza Type A (PCR) Not Detected (NotDetected) 07/14/24 03:38 Influenza Type B (PCR) Not Detected (NotDetected) 07/14/24 03:38 M. pneumoniae (PCR) Not Detected (NotDetected) 07/14/24 03:38 Parainfluenza 1 (PCR) Not Detected (NotDetected) 07/14/24 03:38 Parainfluenza 2 (PCR) Not Detected (NotDetected) 07/14/24 03:38 Parainfluenza 3 (PCR) Not Detected (NotDetected) 07/14/24 03:38 Parainfluenza 4 (PCR) Not Detected (NotDetected) 07/14/24 03:38 RSV (PCR) Not Detected (NotDetected) 07/14/24 03:38 Entero/Rhino (PCR) Not Detected (NotDetected) 07/14/24 03:38 Impressions Abdomen/Pelvis CT 07/14/24 03:14 Exam(s): CT ABDOMEN + PELVIS With Contrast IV Amt: 93 CC OPTIRAY 320 EXAM: CT Abdomen and Pelvis With Intravenous Contrast CLINICAL HISTORY: Reason for exam: severe pain, hx sbo. TECHNIQUE: Axial computed tomography images of the abdomen and pelvis with intravenous contrast. CTDI is 20.66 mGy and DLP is 1132.08 mGy-cm. Automated exposure control was utilized for the study. A dose lowering technique was utilized adhering to the principles of ALARA. CONTRAST: Patient received 93 CC OPTIRAY 320 of IV contrast COMPARISON: 11/21/22. FINDINGS: Lung bases: Minimal dependent bibasilar subsegmental atelectasis. Mediastinum: Small, sliding hiatal hernia. ABDOMEN: Liver: Unremarkable. No mass. Gallbladder and bile ducts: Unremarkable. No calcified stones. No ductal dilation. Pancreas: Unremarkable. No mass. No ductal dilation. Spleen: Unremarkable. No splenomegaly. Adrenals: Unremarkable. No mass. Kidneys and ureters: Unremarkable. Subcentimeter nonobstructing renal calculi bilaterally. Stomach and bowel: Diverticulosis with mild severity acute diverticulitis in the left lower quadrant associated with a prominent diverticulum and mild mesenteric inflammatory stranding. Midabdominal small bowel anastomotic sutures noted. No significant bowel dilatation or transition point to suggest obstruction, however, there is mild right abdominal small bowel ileus. PELVIS: Appendix: No findings to suggest acute appendicitis. Bladder: Physiologic distention of the urinary bladder. Reproductive: Unremarkable as visualized. ABDOMEN and PELVIS: Intraperitoneal space: Unremarkable. No free air. No significant fluid collection. Bones/joints: No acute fracture. No dislocation. Soft tissues: Small subcutaneous hematoma in the anterior abdominal wall characteristic for injection of medication. Vasculature: Unremarkable. No abdominal aortic aneurysm. Lymph nodes: Multiple, small reactive mesenteric lymph nodes. No pathologic lymph node enlargement. IMPRESSION: 1. No significant bowel dilatation or transition point to suggest obstruction, however, there is mild right abdominal small bowel ileus. Detail limited as no enteric contrast was administered. 2. Diverticulosis with mild severity acute diverticulitis in the left lower quadrant associated with a prominent diverticulum and mild mesenteric inflammatory stranding. No abscess collection or pneumoperitoneum. Electronically signed by: Prudencio Cheek MD 07/14/24 04:20 AM PG Care Time/CCT Total # of Minutes Spent Total Time Spent with Patient: Total time spent is greater than 50% in coordination of care (as documented) at patient's floor/unit and/or counseling patient: Coding Level of Care Code 62787 INT INP/OBS CARE 2/55MIN Diagnoses Diverticulitis K57.92
[2024-07-14] MEDS: LACTATED RINGER'S 1,000 ML IV SCH (05:52)
--- NOTE | 2024-07-14 06:50 | XRay Report ---
XR chest 1V portable CLINICAL HISTORY: upper abd pain TECHNIQUE: Single frontal radiograph of the chest was obtained. Comparison: Comparison is made to chest radiograph 07/07/2023 FINDINGS: No lines and tubes are seen. The cardiomediastinal silhouette is normal. The lungs are clear. No evid ence of pleural effusion or pneumothorax. IMPRESSION: No acute chest disease. ACT 112: Negative or not required by law. Electronically signed by: Lucho Silva M.D. 07/14/2024 6:48 AM
[2024-07-14] MEDS: DOCUSATE SODIUM 100 MG CAP PO SCH (09:25)
[2024-07-14] MEDS: ARIPiprazole 5 MG TAB PO SCH (09:25)
[2024-07-14] MEDS: SERTRALINE HCL 100 MG TABLET PO SCH (09:25)
[2024-07-14] MEDS: MoRPHine SULFATE 2 MG/ML CARP IV PRN (09:46)
[2024-07-14] MEDS: ONDANSETRON INJ 2 MG/ML 2 ML VIAL IV PRN (09:46)
[2024-07-14] MEDS: PIPERACILLIN/TAZOBACTAM 4.5 GM/100 ML BAG IV SCH (09:56)
[2024-07-14] MEDS: NICOTINE 14 MG/24 HR PATCH TD SCH (10:30)
--- NOTE | 2024-07-14 11:00 | Surgery Consultation ---
<Statement entered by Yomaira Valdez DO - 07/14/24 12:42> I have seen and examined this patient with the surgical PA and I agree with this plan. Date of Consultation July 14, 2024 Assessment & Plan (1) Diverticulitis: This is a 34yM with a PMH of bipolar 1 disorder, OCD, alcohol use, depression, OCD, who presents to the [facility] ED on 07/14/24 with complaint of abdominal pain, nausea/vomiting. Patient states his symptoms started friday night but have worsened prompting him to come in today for evaluation. He underwent a CT a/p was obtained that revealed no significant bowel dilatation or transition point to suggest obstruction, however, there is mild right abdominal small bowel ileus. Along with mild severity acute diverticulitis in the left lower quadrant associated with a prominent diverticulum and mild mesenteric inflammatory stranding. No abscess collection or pneumoperitoneum. Patient states he has had intermittent abdominal issues with SBO's etc after he had a perforated meckel's diverticulitis attack in 2015 requiring surgical intervention. His last bowel obstruction was in 2020 and since then he has been okay. In addition to pain and n/v patient report + fevers and chills. He believes he is passing some flatus. Other PSH includes appendectomy and inguinal hernia repair. In the ER labs show WBC 5.3, Hbg 14.7, Cr 0.9, Lactate 2.4. Vitals show patient was initially tachycardic to 130s with temp of 100.2F, now improved to the 90s with temperat ures now 98. On examination patient is resting in bed. Abdomen has generalized discomfort to palpation, worse across bilateral lower abdomen. We suggested an NGT be inserted given his n/v and pain and dilated stomach seen on CT scan. He is refusing at this time, as he had one in the past nad reports a panic attack with multiple episodes of when it was inserted. Since no recent emesis & his prior traumatic event with tube placement, we are okay with holding off for now, but recommend strict NPO without ice chips for the time being. If it becomes indicated with worsening abdominal pain/distention/n/v the patient says he will be agreeable but requesting ativan be used if possible, which we are ok with this if medicine is. Otherwise patient to remain NPO, with IVF, and on IV abx for supportive care. No plans for acute surgical intervention indicated at this time. Will follow along. Patient to be admitted under medicine. Pt seen/examined with Dr. Valdez. History of Present Illness Attending Physician: Tejal Cooper DO History of Present Illness This is a 34yM with a PMH of bipolar 1 disorder, OCD, alcohol use, depression, OCD, who presents to the [facility] ED on 07/14/24 with complaint of abdominal pain and nausea. Patient states his symptoms started friday night. His pain is located throughout the abdomen but worse in the lower portions. He's had nausea and multiple bouts of emesis with this during the week. Because of his ongoing symptoms he presented to the ER for further evaluation. He underwent a CT a/p was obtained that revealed no significant bowel dilatation or transition point to suggest obstruction, however, there is mild right abdominal small bowel ileus. Along with mild severity acute diverticulitis in the left lower quadrant associated with a prominent diverticulum and mild mesenteric inflammatory stranding. No abscess collection or pneumoperitoneum. Patient states he has had intermittent abdominal issues with SBO's etc after he had a perforated meckel's diverticulitis attack in 2015 requiring surgical intervention. His last bowel obstruction was in 2020 and since then he has been okay. In addition to pain and n/v patient report + fevers and chills. He believes he is passing some flatus. Other PSH includes appendectomy and inguinal hernia repair. Allergies Allergy/AdvReac Type Severity Reaction Status Date / Time No Known Allergies Allergy Verified 07/07/23 20:23 Home Medications Medication Instructions Recorded Confirmed Type hydroxyzine HCl 25 mg tablet 50 mg PO BID PRN Anxiety 07/07/23 07/14/24 History sertraline 100 mg tablet 200 mg (2 x 100 mg) PO DAILY OCD 01/14/24 07/14/24 Rx 30 days #60 tabs Abilify 5 mg PO DAILY 07/14/24 07/14/24 History Patient History Medical History Alcohol use Depression with suicidal ideation Substance use Suicidal ideation Respiratory failure Current every day vaping Acute respiratory failure with hypoxia Histrionic personality disorder Borderline personality disorder Pilar cyst Polysubstance overdose Toxic effect of isopropanol No pertinent family history Meckel's diverticulum perforation Bowel obstruction Surgical History No pertinent past surgical history H/O right inguinal hernia repair History of appendectomy Social History Smoking Status: Current every day smoker Tobacco Type: E-cigarettes / Vaping Do You Dip or Chew Tobacco: No; Hx Alcohol Use: No Hx Substance Use: No Preferred Language: [place] African Communication Ability: Effective Insole Buffer Required: No Beliefs That Will Affect Care: None Current Living Situation: Alone Current Living Situation Comment: apartment with girlfriend Feels Safe at Home: Yes Safety Concerns: Feels Safe At This Time Gender Identity: Male Assistive Devices: None Review of Systems Constitutional: + fever and + chills Respiratory: no dyspnea Gastrointestinal: + abdominal pain, + nausea, + vomiting a nd + diarrhea/loose stools Physical Exam Physical Exam: awake/alert Constitutional: well developed and well nourished Respiratory: normal respiratory effort Gastrointestinal (Abdomen): Inspection/Auscultation: abdomen not distended Percussion/Palpation: + abdomen tender (generalized abdominal tenderness to palpation, worse across b/l lower abd) and abdomen soft Results & Data Vital Signs (Past 12 Hours) Vital Signs Temp Pulse Pulse Resp BP BP Pulse Ox 07/14/24 10:29 98.2 F 98 H 15 116/69 94 07/14/24 10:09 98.2 F 99 H 18 97/63 L 95 07/14/24 09:16 98.2 F 99 H 18 97/63 L 95 07/14/24 07:09 107 H 07/14/24 06:12 101 H 18 97/65 L 94 07/14/24 04:35 108 H 18 106/70 95 07/14/24 04:22 98.2 F 07/14/24 03:14 96 07/14/24 03:11 137 H 07/14/24 03:09 126 H 07/14/24 03:09 100.2 F H 134 H 20 103/53 L 92 O2 Del Method O2 Flow Rate 07/14/24 10:29 Room Air 07/14/24 10:09 Room Air 07/14/24 09:16 Room Air 07/14/24 07:09 07/14/24 06:12 Room Air 07/14/24 04:35 Room Air 07/14/24 04:22 07/14/24 03:14 Nasal Cannula 2 07/14/24 03:11 07/14/24 03:09 07/14/24 03:09 Room Air Diagnostic Findings Exam(s): CT ABDOMEN + PELVIS With Contrast IV Amt: 93 CC OPTIRAY 320 EXAM: CT Abdomen and Pelvis With Intravenous Contrast CLINICAL HISTORY: Reason for exam: severe pain, hx sbo. TECHNIQUE: Axial computed tomography images of the abdomen and pelvis with intravenous contrast. CTDI is 20.66 mGy and DLP is 1132.08 mGy-cm. Automated exposure control was utilized for the study. A dose lowering technique was utilized adhering to the principles of ALARA. CONTRAST: Patient received 93 CC OPTIRAY 320 of IV contrast COMPARISON: 11/21/22. FINDINGS: Lung bases: Minimal dependent bibasilar subsegmental atelectasis. Mediastinum: Small, sliding hiatal hernia. ABDOMEN: Liver: Unremarkable. No mass. Gallbladder and bile ducts: Unremarkable. No calcified stones. No ductal dilation. Pancreas: Unremarkable. No mass. No ductal dilation. Spleen: Unremarkable. No splenomegaly. Adrenals: Unremarkable. No mass. Kidneys and ureters: Unremarkable. Subcentimeter nonobstructing renal calculi bilaterally. Stomach and bowel: Diverticulosis with mild severity acute diverticulitis in the left lower quadrant associated with a prominent diverticulum and mild mesenteric inflammatory stranding. Midabdominal small bowel anastomotic sutures noted. No significant bowel dilatation or transition point to suggest obstruction, however, there is mild right abdominal small bowel ileus. PELVIS: Appendix: No findings to suggest acute appendicitis. Bladder: Physiologic distention of the urinary bladder. Reproductive: Unremarkable as visualized. ABDOMEN and PELVIS: Intraperitoneal space: Unremarkable. No free air. No significant fluid collection. Bones/joints: No acute fracture. No dislocation. Soft tissues: Small subcutaneous hematoma in the anterior abdominal wall characteristic for injection of medication. Vasculature: Unremarkable. No abdominal aortic aneurysm. Lymph nodes: Multiple, small reactive mesenteric lymph nodes. No pathologic lymph node enlargement. IMPRESSION: 1. No significant bowel dilatation or transition point to suggest obstruction, however, there is mild right abdominal small bowel ileus. Detail limited as no enteric contrast was administered. 2. Diverticulosis with mild severity acute diverticulitis in the left lower quadrant associated with a prominent diverticulum and mild mesenteric inflammatory stranding. No abscess collection or pneumoperitoneum. Electronically signed by: Prudencio Cheek MD 07/14/24 04:20 AM PG Care Time/CCT Total # of Minutes Spent Total Time Spent with Patient: Total time spent is greater than 50% in coordination of care (as documented) at patient's floor/unit and/or counseling patient: Coding Level of Care Code 93523 OP VST NEW MOD 45 MIN Diagnoses Diverticulitis K57.92
--- NOTE | 2024-07-14 11:58 | Electrocardiogram Report ---
Test Reason : Blood Pressure : */* mmHG Vent. Rate : 129 BPM Atrial Rate : 129 BPM P-R Int : 140 ms QRS Dur : 76 ms QT Int : 296 ms P-R-T Axes : 67 87 63 degrees QTcB Int : 433 ms Sinus tachycardia Otherwise normal ECG When compared with ECG of 07-Jul-2023 18:12, No significant change was found Confirmed by Elmer Baxter ([id number] on 07/14/2024 11:58:17 AM Referred By: REFERRED SELF Confirmed By: Elmer Baxter
[2024-07-14] MEDS: ACETAMINOPHEN 1,000 MG/100 ML VIAL IV PRN (16:43)
--- NOTE | 2024-07-14 17:59 | Hospitalist Progress Note ---
Date of Service July 14, 2024 Assessment & Plan (1) Diverticulitis: Plan: 34yo male presenting with progressive abdominal pain and nausea. CT as above with acute diverticulitis with ileus. Patient is afebrile, HD stable at present. Initial concerns for sepsis with hypotension, increased lactate, and tachycardia however vitals normalized and will recheck lactate as patient improves. - CT AP:Diverticulosis with mild severity acute diverticulitis in the left lower quadrant associated with a prominent diverticulum and mild mesenteric inflammatory stranding. No abscess collection or pneumoperitoneum. No significant bowel dilatation or transition point to suggest obstruction, however, there is mild right abdominal small bowel ileus. - Surgery consulted -NPO -Zosyn -Tylenol and Morphine PRN -Zofran PRN (2) Depression, unspecified: Plan: -Continue Sertraline -Continue Hydroxyzine -Continue Abilify Plan F/E/N - LR at 125mL/hr x 1L, electrolytes WNL, NPO for now Ppx - SCDs Code - Full Dispo - Admit to medical Admission and Anticipated Discharge Date Admission Date: July 14, 2024 Supervising Physician Co-Signing Physician Notes I personally examined the patient and verified lauren points of history and exam, discussed case, and agree with decision making and plan documented by Dr. Hauser. Patient with history of multiple colonic obstructions and perforations on admission for abdominal pain and diverticulitis. Patient evaluated by surgery, will continue conservative management, currently on pip-tazo IV and IVFs. On exam, patient appeared uncomfortable, diaphoretic, lungs clear b/l to auscultation, regular rate and rhythm, abdomen diffusely tender to palpation in all quadrants with guarding, bowel sounds present. Patient requesting hold of NG tube at this time. Will monitor closely. Subjective Raúl Mar is a 34 y/o M with a past medical history of bipolar 1 disorder, alcohol use disorder, and OCD arriving in the ED due to severe lower abdominal pain nausea and vomiting. Patient states he has had intermittent abdominal issues with SBO's etc after he had a perforated Meckel's diverticulitis attack in 2015 requiring surgical intervention. His last bowel obstruction was in 2020 and since then he has been okay. In addition to pain and n/v patient report + fevers and chills. He believes he is passing some flatus. Other PSH includes appendectomy and inguinal hernia repair. Today patient is denies chest pain, palpitations, tightness, SOB, cough, wheeze or any incontinence. Patient does endorse feeling feverish with chills, diaphoresis, abdominal pain and nausea. Patient has not had any emesis since this morning. Physical Exam Physical Exam: General: patient resting comfortably, NAD, non-toxic in appearance, answers questions appropriately. Skin: warm, dry, intact HEENT: NC/AT, anicteric sclera, conjunctiva without injection, moist mucus membranes. Heart: +S1/S2, regular, no m/r/g Lungs: equal air entry bilaterally, no rales/rhonchi/wheezes Abd: +BS, soft, NT/ND Ext: warm, no clubbing/cyanosis or edema, Kira's neg. Neuro: nonfocal, speech intact, no facial droop, moving all extremities. Results & Data Results & Data Vital Signs (Past 12 Hours) Vital Signs Temp Pulse Pulse Resp BP Pulse Ox O2 Del Method 07/14/24 17:44 37.4 C 96 H 18 100/63 94 Room Air 07/14/24 15:06 113 H 07/14/24 13:40 37.7 C H 115 H 18 101/75 93 Room Air 07/14/24 12:30 37.9 C H 07/14/24 12:00 106 H 20 102/68 92 Room Air 07/14/24 10:29 36.8 C 98 H 15 116/69 94 Room Air 07/14/24 10:09 36.8 C 99 H 18 97/63 L 95 Room Air 07/14/24 09:16 36.8 C 99 H 18 97/63 L 95 Room Air 07/14/24 07:09 107 H 07/14/24 06:12 101 H 18 97/65 L 94 Room Air Resident Activity Tracking Resident Involvement: Resident Care Provided Care Provided: Adult Hospital Medicine
[2024-07-14] MEDS: DICYCLOMINE HCL 20 MG TAB PO STA (21:13)
[2024-07-14] MEDS: MoRPHine SULFATE 4 MG/ML 1 ML CARP\\VIAL IV PRN (21:18)
[2024-07-15] MEDS: CALCIUM CARBONATE 500 MG CHEWABLE TAB PO PRN (04:16)
[2024-07-15 06:14] LABS: BUN Creatinine Ratio 14.3 (10-20); Calcium 8.1 mg/dl (8.6-10.3); Creatinine Clr Calc Pharmacy 141.2 ml/min; Magnesium 1.5 mg/dl (1.7-2.4); Potassium 3.5 mmol/L (3.5-5.1)
[2024-07-15 06:40] LABS: Basophils # (auto) 0.02 K/uL (0.00-0.20); Basophils % (auto) 0.2 %; Hematocrit (blood only) 34.9 % (42.0-52.0); Hemoglobin 11.6 g/dl (14.0-18.0); Immature Granulocytes # (auto) 0.03 K/uL (0.01-0.20); Immature Granulocytes % (auto) 0.4 %; Lymphocytes # (auto) 0.73 K/uL (1.20-3.40); Lymphocytes % (auto) 8.8 %; Mean Corpuscular Hgb Conc 33.2 g/dL (32.0-36.0); Mean Corpuscular Volume 81.2 fL (80.0-100.0); Mean Platelet Volume 10.4 fL (9.4-12.4); Monocytes # (auto) 0.79 K/uL (0.11-0.59); Monocytes % (auto) 9.5 %; Neutrophils # (auto) 6.75 K/uL (1.40-6.50); Neutrophils % (auto) 81.1 %; Platelet Count 162 K/uL (130-400); RDW Coefficient of Variation 13.6 % (11.5-14.5); RDW Standard Deviation 39.8 fL (36.4-46.3); White Blood Count 8.32 K/ul (4.8-10.8)
[2024-07-15] MEDS: MAGNESIUM SULFATE / D5W 1 GM/100 ML BAG IV SCH (09:19)
--- NOTE | 2024-07-15 09:21 | Surgery Progress Note ---
<Statement entered by Yomaira Valdez, DO - 07/15/24 11:48> I have seen and examined this patient with the surgical team. The patient states he still has pain but does believe it is improving and would still like to avoid an NGT. He is aware that he must remain STRICT NPO if he will continue to try to avoid NGT and that this may be a longer process and/or fail. Patient stated he would like to try but would accept one if he seems to not be improving. Date of Service July 15, 2024 Assessment & Plan (1) Diverticulitis: Plan: abd pain improving but still present +Bms, mild nausea no vomiting , will hold off on NGT VSS , temp overnight 100.8 this am 97.9 but did get Tylenol abd distended , soft TTP Continue NPO and IV antibiotics Pt seen and examined with Dr. Valdez (2) Ileus: Admission and Anticipated Discharge Date Admission Date: July 14, 2024 Subjective pt reports abd pain still present but better than yesterday had increase in temp over night 100.8 No vomiting, mild nausea, +bms Review of Systems Constitutional: + fever; no chills Respiratory: no dyspnea Gastrointestinal: + abdominal pain and + nausea; no vomiti ng Physical Exam Respiratory: normal respiratory effort and able to speak in complete sentences; no respiratory distress Cardiovascular: Rate/Rhythm: + tachycardic (91) Gastrointestinal (Abdomen): Inspection/Auscultation: + abdomen distended Percussion/Palpation: + abdomen tender and abdomen soft Results & Data Vital Signs (Past 12 Hours) Vital Signs Temp Pulse Resp BP BP Pulse Ox O2 Del Method 07/15/24 07:17 97.9 F 91 H 16 103/66 92 Room Air 07/14/24 23:26 100.8 F H 18 130/73 96 Nasal Cannula O2 Flow Rate 07/15/24 07:17 07/14/24 23:26 2 Results CBC w Diff Results: RBC 4.30 M/uL (4.70-6.10) L 07/15/24 WBC 8.32 K/ul (4.8-10.8) 07/15/24 Hgb 11.6 g/dl (14.0-18.0) L 07/15/24 Hct 34.9 % (42.0-52.0) L 07/15/24 MCV 81.2 fL (80.0-100.0) 07/15/24 MCH 27.0 pg (25.0-34.0) 07/15/24 MCHC 33.2 g/dL (32.0-36.0) 07/15/24 RDW Standard Deviation 39.8 fL (36.4-46.3) 07/15/24 RDW Coefficient of Variation 13.6 % (11.5-14.5) 07/15/24 Plt Count 162 K/uL (130-400) 07/15/24 MPV 10.4 fL (9.4-12.4) 07/15/24 Nucleated Red Blood Cells % (auto) 0.2 % 07/12 Nucleated RBC Absolute Count (auto) 0.02 K/uL (0.00-0.12) 1 Neutrophils (%) (Auto) 81.1 % 07/15/24 Lymphocytes (%) (Auto) 8.8 % 07/15/24 Monocytes # (Auto) 0.79 K/uL (0.11-0.59) H 07/15/24 Eosinophils # (Auto) 0.00 K/uL (0.00-0.50) 07/15/24 Immature Granulocyte % (Auto) 0.4 % 07/15/24 Neutrophils # (Auto) 6.75 K/uL (1.40-6.50) H 07/15/24 Lymphocytes # (Auto) 0.73 K/uL (1.20-3.40) L 07/15/24 Monocytes # (Auto) 0.79 K/uL (0.11-0.59) H 07/15/24 Eosinophils # (Auto) 0.00 K/uL (0.00-0.50) 07/15/24 Basophils # (Auto) 0.02 K/uL (0.00-0.20) 07/15/24 Immature Granulocyte # (Auto) 0.03 K/uL (0.01-0.20) 4 PG Care Time/CCT Total # of Minutes Spent Total Time Spent with Patient: Total time spent is greater than 50% in coordination of care (as documented) at patient's floor/unit and/or counseling patient: Coding Level of Care Code 52806 SUB INP/OBS CARE 1/25MIN Diagnoses Diverticulitis K57.92 Ileus K56.7
[2024-07-15 13:10] LABS: Basophils # (auto) 0.01 K/uL (0.00-0.20); Basophils % (auto) 0.1 %; Eosinophils # (auto) 0.03 K/uL (0.00-0.50); Eosinophils % (auto) 0.4 %; Hematocrit (blood only) 35.1 % (42.0-52.0); Hemoglobin 11.7 g/dl (14.0-18.0); Immature Granulocytes # (auto) 0.03 K/uL (0.01-0.20); Immature Granulocytes % (auto) 0.4 %; Lymphocytes # (auto) 0.84 K/uL (1.20-3.40); Lymphocytes % (auto) 10.2 %; Mean Corpuscular Hemoglobin 27.1 pg (25.0-34.0); Mean Corpuscular Hgb Conc 33.3 g/dL (32.0-36.0); Mean Corpuscular Volume 81.4 fL (80.0-100.0); Mean Platelet Volume 10.3 fL (9.4-12.4); Monocytes # (auto) 0.81 K/uL (0.11-0.59); Monocytes % (auto) 9.9 %; Neutrophils # (auto) 6.49 K/uL (1.40-6.50); Platelet Count 159 K/uL (130-400); RDW Coefficient of Variation 13.5 % (11.5-14.5); Red Blood Count 4.31 M/uL (4.70-6.10); White Blood Count 8.21 K/ul (4.8-10.8)
[2024-07-15] MEDS: hydrOXYzine HCl 25 MG TAB PO PRN (16:00)
--- NOTE | 2024-07-15 18:13 | Hospitalist Progress Note ---
Date of Service July 15, 2024 Assessment & Plan (1) Diverticulitis: Plan: 34yo male presenting with progressive abdominal pain and nausea. CT as above with acute diverticulitis with ileus. Patient is afebrile, HD stable at present. Initial concerns for sepsis with hypotension, increased lactate, and tachycardia however vitals normalized and will recheck lactate as patient improves. - CT AP:Diverticulosis with mild severity acute diverticulitis in the left lower quadrant associated with a prominent diverticulum and mild mesenteric inflammatory stranding. No abscess collection or pneumoperitoneum. No significant bowel dilatation or transition point to suggest obstruction, however, there is mild right abdominal small bowel ileus. - Surgery consulted -NPO -Zosyn -Tylenol and Morphine PRN -Zofran PRN (2) Sepsis: Plan: - Patient initially sepsis on presentation to ED - Tachycardic, hypotensive with increased lactate: 2.9 - After pain management, fluids and abx patient quickly improved - current HR: 92, BP: 113/73 and lactate: 0.7 - Patient afebrile with WBC at 8 (3) Depression, unspecified: Plan: -Continue Sertraline -Continue Hydroxyzine -Continue Abilify Plan F/E/N - LR at 125mL/hr x 1L, electrolytes WNL, NPO for now Ppx - SCDs Code - Full Dispo - Admit to medical Admission and Anticipated Discharge Date Admission Date: July 14, 2024 Supervising Physician Co-Signing Physician Notes I personally examined the patient and verified lauren points of history and exam, discussed case, and agree with decision making and plan documented by Dr. Hauser. Patient with history of multiple colonic obstructions and perforations on admission for abdominal pain and diverticulitis. Patient is followed by surgery, he would like to continue conservative management and avoid NG tube if possible. Remains on strict NPO, pip-tazo IV, and IVFs. Continue to monitor closely. Subjective Patient is seen this morning resting comfortably in bed. Patient does endorse some SOB satting between 91-95%, abdominal pain and pain with urination. Patient does say that his abdominal pain and urinary pain have improved, but has been getting doses of morphine for pain. Patient's pain is a 4/10 but an 8/10 on palpation. No emesis, mild nausea. Currently afebrile and in no acute distress. Physical Exam Physical Exam: General: patient resting comfortably, NAD, non-toxic in appearance, answers questions appropriately. Skin: warm, dry, intact HEENT: NC/AT, anicteric sclera, conjunctiva without injection, moist mucus membranes. Heart: +S1/S2, regular, no m/r/g Lungs: equal air entry bilaterally, no rales/rhonchi/wheezes Abd: +BS, soft, NT/ND Ext: warm, no clubbing/cyanosis or edema, Kira's neg. Neuro: nonfocal, speech intact, no facial droop, moving all extremities. Results & Data Results & Data Vital Signs (Past 12 Hours) Vital Signs Temp Pulse Pulse Resp BP BP Pulse Ox 07/15/24 14:40 36.9 C 92 H 16 113/73 91 07/15/24 07:47 07/15/24 07:17 36.6 C 91 H 16 103/66 92 O2 Del Method 07/15/24 14:40 Room Air 07/15/24 07:47 Room Air 07/15/24 07:17 Room Air Resident Activity Tracking Resident Involvement: Resident Care Provided Care Provided: Adult Hospital Medicine
[2024-07-16 07:13] LABS: Basophils # (auto) 0.03 K/uL (0.00-0.20); Basophils % (auto) 0.4 %; Eosinophils # (auto) 0.14 K/uL (0.00-0.50); Eosinophils % (auto) 1.8 %; Hematocrit (blood only) 35.7 % (42.0-52.0); Hemoglobin 11.8 g/dl (14.0-18.0); Immature Granulocytes # (auto) 0.02 K/uL (0.01-0.20); Immature Granulocytes % (auto) 0.3 %; Lymphocytes # (auto) 1.65 K/uL (1.20-3.40); Lymphocytes % (auto) 21.5 %; Mean Corpuscular Hgb Conc 33.1 g/dL (32.0-36.0); Mean Corpuscular Volume 81.7 fL (80.0-100.0); Mean Platelet Volume 10.5 fL (9.4-12.4); Monocytes # (auto) 0.78 K/uL (0.11-0.59); Monocytes % (auto) 10.1 %; Neutrophils # (auto) 5.07 K/uL (1.40-6.50); Neutrophils % (auto) 65.9 %; Platelet Count 178 K/uL (130-400); RDW Coefficient of Variation 13.3 % (11.5-14.5); RDW Standard Deviation 39.8 fL (36.4-46.3); Red Blood Count 4.37 M/uL (4.70-6.10); White Blood Count 7.69 K/ul (4.8-10.8)
[2024-07-16 07:30] LABS: BUN Creatinine Ratio 17.2 (10-20); Calcium 8.3 mg/dl (8.6-10.3); Creatinine Clr Calc Pharmacy 169.9 ml/min; Potassium 3.2 mmol/L (3.5-5.1)
--- NOTE | 2024-07-16 08:22 | Surgery Progress Note ---
<Statement entered by Yomaira Valdez DO - 07/16/24 08:43> I have seen and examined this patient with the surgical PA this am. I agree with this plan. Date of Service July 16, 2024 Assessment & Plan (1) Ileus: Plan: Pt with history of perforated meckle's diverticulum and SBO's, here with ileus and diverticulitis WBC 7.6, patient afebrile with stable vital signs Abdominal pain remains present, but improving No nausea/vomiting. He is starting to pass flatus Would continue sips of water/ice for now If pain continues to improve and patient ambulating well no issues we could possibly consider clears for dinner Continue IV abx while in house with plan to transition to orals upon discharge No plans for acute surgical intervention. [facility] covering the wknd (2) Diverticulitis: Admission and Anticipated Discharge Date Admission Date: July 14, 2024 Subjective Patient still endorses abdominal pain, however he says it is significantly improved from admission. He does deny any recent nausea/vomiting. He is starting to pass flatus. Has some sips of water. Physical Exam Physical Exam: awake/ alert, no distress Gastrointestinal (Abdomen): Inspection/Auscultation: abdomen not distended Percussion/Palpation: + abdomen tender (generalized discomfort to palpation, worse across b/l lower abdomen) and abdomen soft; no guarding Results & Data Vital Signs (Past 12 Hours) Vital Signs Temp Pulse Resp BP Pulse Ox O2 Del Method 07/16/24 07:10 98.2 F 82 16 114/72 92 Room Air 07/16/24 07:00 Room Air PG Care Time/CCT Total # of Minutes Spent Total Time Spent with Patient: Total time spent is greater than 50% in coordination of care (as documented) at patient's floor/unit and/or counseling patient: Coding Level of Care Code 05978 SUB INP/OBS CARE 1/25MIN Diagnoses Ileus K56.7 Diverticulitis K57.92
[2024-07-16 13:28] LABS: Fentanyl, Urine NEGATIVE ng/mL (<0.5); Norfentanyl, Urine NEGATIVE ng/mL (<0.5); medMATCH Fentanyl, Urine DNR; medMATCH Norfentanyl, Urine DNR
--- NOTE | 2024-07-16 14:47 | Hospitalist Progress Note ---
Date of Service July 16, 2024 Assessment & Plan (1) Diverticulitis: Plan: 34yo male presenting with progressive abdominal pain and nausea. CT as above with acute diverticulitis with ileus. Patient is afebrile, HD stable at present. Initial concerns for sepsis with hypotension, increased lactate, and tachycardia however vitals normalized and will recheck lactate as patient improves. - CT AP:Diverticulosis with mild severity acute diverticulitis in the left lower quadrant associated with a prominent diverticulum and mild mesenteric inflammatory stranding. No abscess collection or pneumoperitoneum. No significant bowel dilatation or transition point to suggest obstruction, however, there is mild right abdominal small bowel ileus. - Surgery consulted: continue sips of water and ice, can advance to clear diet for dinner if ambulating well, without N,V, abdominal pain - Patients pain well controlled on Tylenol and Morphine PRN -Continue Zosyn abx coverage, will transition to oral abx on d/c -Zofran PRN - Transition patient to clears diet for dinner and see how he tolerates (07/16) (2) Sepsis: Plan: - Patient initially sepsis on presentation to ED - Tachycardic, hypotensive with increased lactate: 2.9 - After pain management, fluids and abx patient quickly improved - current HR: 92, BP: 113/73 and lactate: 0.7 - Patient afebrile with WBC at 8 and in no distress (3) Depression, unspecified: Plan: -Continue Sertraline -Continue Hydroxyzine -Continue Abilify Plan F/E/N - LR at 125mL/hr x 1L, electrolytes WNL, NPO for now Ppx - SCDs Code - Full Dispo - Admit to medical Admission and Anticipated Discharge Date Admission Date: July 14, 2024 Supervising Physician Co-Signing Physician Notes Attending attestation Pt seen and examined in concert with Dr. Hauser. In agreement with the documented findings as noted in the resident documentation with any exceptions or additions as noted here. Reports pain adequately controlled on present regimen and overall improving. Now localizing from diffuse to bilateral lower quadrant focusing in the LLQ. Reports no nausea/vomiting. +ve loose BM. On examination, S1/S2 nl RRR no MCG. CTAB. Abd NT/ND BS+ve Sepsis in the setting of diverticulitis without abscess complicated by small bowel ileus - general surgery consult - continue IV Zosyn and advance diet as noted. Likely to transition to PO coverage once tolerating diet well for discharge. Holding suboxone, continue morphine PRN for now to transition to PO oxycodone and back to suboxone on discharge. MDD complicated by substance use disorder history - continue sertraline, hydroxyzine, aripiprazole Continue IVF until tolerating clears at volume, then attempt to transition to POI fluids. Else see resident documentation as noted. Subjective Patient still endorses abdominal pain 4/10 that increases to 7-8/10 on palpation. Says pain is significantly improved from admission. Patient does not complain of any urinary pain, incontinence or vomiting. Patient has had BM with mucous and without blood. He is passing flatus and is tolerating sips of water and ice chips well. Physical Exam Physical Exam: General: patient resting comfortably, NAD, non-toxic in appearance, answers questions appropriately. Skin: warm, dry, intact HEENT: NC/AT, anicteric sclera, conjunctiva without injection, moist mucus membranes. Heart: +S1/S2, regular, no m/r/g Lungs: equal air entry bilaterally, no rales/rhonchi/wheezes Abd: +BS, soft, NT/ND Ext: warm, no clubbing/cyanosis or edema, Kira's neg. Neuro: nonfocal, speech intact, no facial droop, moving all extremities. Results & Data Results & Data Vital Signs (Past 12 Hours) Vital Signs Temp Pulse Resp BP Pulse Ox O2 Del Method 07/16/24 13:52 36.7 C 80 16 119/78 96 Room Air 07/16/24 07:10 36.8 C 82 16 114/72 92 Room Air 07/16/24 07:00 Room Air
[2024-07-17] MEDS: hydrOXYzine HCl 25 MG TAB PO STA (01:32)
[2024-07-17 06:16] LABS: Basophils # (auto) 0.01 K/uL (0.00-0.20); Basophils % (auto) 0.1 %; Eosinophils # (auto) 0.15 K/uL (0.00-0.50); Eosinophils % (auto) 2.2 %; Hematocrit (blood only) 34.2 % (42.0-52.0); Hemoglobin 11.6 g/dl (14.0-18.0); Immature Granulocytes # (auto) 0.05 K/uL (0.01-0.20); Immature Granulocytes % (auto) 0.7 %; Lymphocytes # (auto) 1.96 K/uL (1.20-3.40); Mean Corpuscular Hemoglobin 27.2 pg (25.0-34.0); Mean Corpuscular Hgb Conc 33.9 g/dL (32.0-36.0); Mean Corpuscular Volume 80.1 fL (80.0-100.0); Mean Platelet Volume 10.4 fL (9.4-12.4); Monocytes # (auto) 0.66 K/uL (0.11-0.59); Monocytes % (auto) 9.7 %; Neutrophils # (auto) 3.94 K/uL (1.40-6.50); Neutrophils % (auto) 58.3 %; Platelet Count 204 K/uL (130-400); RDW Coefficient of Variation 13.4 % (11.5-14.5); RDW Standard Deviation 38.6 fL (36.4-46.3); Red Blood Count 4.27 M/uL (4.70-6.10); White Blood Count 6.77 K/ul (4.8-10.8)
[2024-07-17 06:40] LABS: BUN Creatinine Ratio 12.7 (10-20); Calcium 8.4 mg/dl (8.6-10.3); Creatinine Clr Calc Pharmacy 172.6 ml/min; Magnesium 1.8 mg/dl (1.7-2.4)
[2024-07-17] MEDS: hydrOXYzine HCl 25 MG TAB PO PRN (08:49)
[2024-07-17] MEDS: DICYCLOMINE HCL 20 MG TAB PO PRN (09:58)
[2024-07-17] MEDS: POTASSIUM CHLORIDE CRTAB 20 MEQ TABCR PO STA (09:58)
--- NOTE | 2024-07-17 11:43 | Surgery Progress Note ---
Date of Service July 17, 2024 Assessment & Plan (1) Diverticulitis: Plan: con't abx advance diet ileus resolving begin fulls Admission and Anticipated Discharge Date Admission Date: July 14, 2024 Subjective pain much improved having BMs Review of Systems Constitutional: no fever and no chills Respiratory: no cough and no dyspnea Cardiovascular: no chest pain Gastrointestinal: + abdominal pain; no nausea, no vomiting and no change in bowel habits Genitourinary: no dysuria Neurologic: no localized weakness and no generalized weakness Psychiatric: no behavioral changes Hematologic / Lymphatic: no easy bleeding and no easy bruising Physical Exam Constitutional: WD/WN, vitals as above Respiratory: normal respiratory effort, lungs clear to auscultation Cardiovascular: RRR, no murmur, no edema Gastrointestinal (Abdomen): Inspection/Auscultation: abdomen normal to inspection, normal bowel sounds, + visible herniation and + abdominal surgical scar; abdomen not distended Percussion/Palpation: + abdomen tender and abd omen soft; no guarding and abdomen not rigid Musculoskeletal: Head/Neck/Chest: normocephalic and head atraumatic Skin: no rashes, warm and dry Results & Data Vital Signs (Past 12 Hours) Vital Signs Temp Pulse Resp BP Pulse Ox O2 Del Method 07/17/24 08:00 36.6 C 61 16 124/77 97 Room Air
--- NOTE | 2024-07-17 15:35 | Hospitalist Progress Note ---
Date of Service July 17, 2024 Assessment & Plan (1) Diverticulitis: Plan: 34yo male presenting with progressive abdominal pain and nausea. CT as above with acute diverticulitis with ileus. Patient is afebrile, HD stable at present. Initial concerns for sepsis with hypotension, increased lactate, and tachycardia however vitals normalized and will recheck lactate as patient improves. - CT AP:Diverticulosis with mild severity acute diverticulitis in the left lower quadrant associated with a prominent diverticulum and mild mesenteric inflammatory stranding. No abscess collection or pneumoperitoneum. No significant bowel dilatation or transition point to suggest obstruction, however, there is mild right abdominal small bowel ileus. - Surgery consulted: continue sips of water and ice, can advance to clear diet for dinner if ambulating well, without N,V, abdominal pain - Patients pain well controlled on Tylenol and Morphine PRN -Continue Zosyn abx coverage, will transition to oral abx on d/c -Zofran PRN - Transition patient to clears diet for dinner and see how he tolerates (07/16) - Full diet liquid now, will advance to solids as patient tolerates. Possible d/c tomorrow. (2) Sepsis: Plan: - Patient initially sepsis on presentation to ED - Tachycardic, hypotensive with increased lactate: 2.9 - After pain management, fluids and abx patient quickly improved - current HR: 92, BP: 113/73 and lactate: 0.7 - Patient afebrile with WBC at 8 and in no distress (3) Depression, unspecified: Plan: -Continue Sertraline -Continue Hydroxyzine -Continue Abilify Plan F/E/N - LR at 125mL/hr x 1L, electrolytes WNL, NPO for now Ppx - SCDs Code - Full Dispo - Admit to medical Admission and Anticipated Discharge Date Admission Date: July 14, 2024 Supervising Physician Co-Signing Physician Notes Attending attestation Pt seen and examined in concert with Dr. Hauser. In agreement with the documented findings as noted in the resident documentation with any exceptions or additions as noted here. Reports pain adequately controlled on present regimen and continues improving. Single flare of pain this AM well handled with PRN medication without apparent trigger - epigastric and b/l lower quadrant, similar to previous pain managed with dicyclomine. On examination, S1/S2 nl RRR no MCG. CTAB. Abd NT/ND BS+ve Sepsis in the setting of diverticulitis without abscess complicated by small bowel ileus - general surgery consult - continue IV Zosyn and advance diet to full liquid today, full diet in AM if tolerates well. Transition to PO coverage once tolerating diet well for discharge. Holding suboxone, continue morphine and back to suboxone on discharge. MDD complicated by substance use disorder history - continue sertraline, hydroxyzine, aripiprazole Else see resident documentation as noted. Subjective Patient is resting comfortably at bedside. No nausea, vomiting. Denies blood in stool. Patient's pain has been improving at a 3/10 this morning without pain medications. Patient was advanced to liquid diet for dinner and will be reevaluated in the AM. No fevers/chills. Physical Exam Physical Exam: General: patient resting comfortably, NAD, non-toxic in appearance, answers questions appropriately. Skin: warm, dry, intact HEENT: NC/AT, anicteric sclera, conjunctiva without injection, moist mucus membranes. Heart: +S1/S2, regular, no m/r/g Lungs: equal air entry bilaterally, no rales/rhonchi/wheezes Abd: +BS, soft, NT/ND Ext: warm, no clubbing/cyanosis or edema, Kira's neg. Neuro: nonfocal, speech intact, no facial droop, moving all extremities. Results & Data Results & Data Vital Signs (Past 12 Hours) Vital Signs Temp Pulse Resp BP Pulse Ox O2 Del Method 07/17/24 15:18 36.4 C L 95 H 17 120/81 95 Room Air 07/17/24 08:00 36.6 C 61 16 124/77 97 Room Air
[2024-07-18 06:58] VITALS: RESP 16
--- NOTE | 2024-07-18 11:05 | Surgery Progress Note ---
Date of Service July 18, 2024 Assessment & Plan (1) Ileus: Plan: begin regular diet switch to po abx soon good progress Admission and Anticipated Discharge Date Admission Date: July 14, 2024 Subjective feels better passing flatus taking po well Review of Systems Constitutional: no fever and no chills Respiratory: no cough and no dyspnea Cardiovascular: no chest pain Gastrointestinal: + abdominal pain; no nausea and no vomit ing Genitourinary: no dysuria Psychiatric: no behavioral changes Physical Exam Constitutional: WD/WN, vitals as above Gastrointestinal (Abdomen): Inspection/Auscultation: abdomen normal to inspection and normal bowel sounds; abdomen not distended Percussion/Palpation: abdomen soft; abdomen nontender, no guarding and abdomen not rigid Results & Data Vital Signs (Past 12 Hours) Vital Signs Temp Pulse Resp BP Pulse Ox O2 Del Method 07/18/24 06:55 36.7 C 68 16 108/69 96 Room Air
[2024-07-18 14:30] VITALS: BP 123/86; PULSE 61; TEMP 97.9; O2SAT 95
--- NOTE | 2024-07-18 16:04 | Discharge Summary ---
Date of Service July 18, 2024 Admission HPI Per Admitting Provider Raúl Mar is a 34yo male with history of depression, prior bowel obstruction presenting with abdominal pain. Patient reports several days of diffuse abdominal pain, acutely worsened today. Nausea with non-bloody emesis. Complaining of fever and chills as well as poor appetite and diarrhea. In the ER he is afebrile, tachycardic ER Course: Zosyn Tylenol NSS Dicyclomine Zofran Fentanyl Principal Diagnosis Diverticulitis Discharge Exam General: patient resting comfortably, NAD, non-toxic in appearance, answers questions appropriately. Skin: warm, dry, intact HEENT: NC/AT, anicteric sclera, conjunctiva without injection, moist mucus membranes. Heart: +S1/S2, regular, no m/r/g Lungs: equal air entry bilaterally, no rales/rhonchi/wheezes Abd: +BS, soft, NT/ND Ext: warm, no clubbing/cyanosis or edema, Kira's neg. Neuro: nonfocal, speech intact, no facial droop, moving all extremities. Discharge Data Allergies Allergy/AdvReac Type Severity Reaction Status Date / Time No Known Allergies Allergy Verified 07/07/23 20:23 Consultations 07/14/24 04:23 ED Decision to Admit Stat 07/14/24 10:41 Consult General Surgery Routine Ordered Studies 07/14/24 03:14 CT abd pelvis IV con only Stat Laboratory Results WBC 6.77 K/ul (4.8-10.8) 07/17/24 05:30 RBC 4.27 M/uL (4.70-6.10) L 07/17/24 05:30 Hgb 11.6 g/dl (14.0-18.0) L 07/17/24 05:30 POC Hgb 15.3 g/dl (14.0-18.0) 07/14/24 03:17 Hct 34.2 % (42.0-52.0) L 07/17/24 05:30 POC Hct 45 % (42-52) 07/14/24 03:17 MCV 80.1 fL (80.0-100.0) 07/17/24 05:30 MCH 27.2 pg (25.0-34.0) 07/17/24 05:30 MCHC 33.9 g/dL (32.0-36.0) 07/17/24 05:30 RDW Std Deviation 38.6 fL (36.4-46.3) 07/17/24 05:30 RDW Coeff of Mary 13.4 % (11.5-14.5) 07/17/24 05:30 Plt Count 204 K/uL (130-400) 07/17/24 05:30 MPV 10.4 fL (9.4-12.4) 07/17/24 05:30 Immature Gran % (Auto) 0.7 % 07/17/24 05:30 Neut % (Auto) 58.3 % 07/17/24 05:30 Lymph % (Auto) 29.0 % 07/17/24 05:30 [place] % (Auto) 9.7 % 07/17/24 05:30 Eos % (Auto) 2.2 % 07/17/24 05:30 Baso % (Auto) 0.1 % 07/17/24 05:30 Neut # (Auto) 3.94 K/uL (1.40-6.50) 07/17/24 05:30 Lymph # (Auto) 1.96 K/uL (1.20-3.40) 07/17/24 05:30 [place] # (Auto) 0.66 K/uL (0.11-0.59) H 07/17/24 05:30 Eos # (Auto) 0.15 K/uL (0.00-0.50) 07/17/24 05:30 Baso # (Auto) 0.01 K/uL (0.00-0.20) 07/17/24 05:30 Immature Gran # (Auto) 0.05 K/uL (0.01-0.20) 07/17/24 05:30 POC Sodium 140 mmol/L (135-144) 07/14/24 03:17 Sodium 138 mmol/L (136-145) 07/17/24 05:30 POC Potassium 4.1 mmol/L (3.3-5.0) 07/14/24 03:17 Potassium 3.0 mmol/L (3.5-5.1) L 07/17/24 05:30 POC Chloride 104 mmol/L (101-112) 07/14/24 03:17 Chloride 104 mmol/L (98-107) 07/17/24 05:30 Carbon Dioxide 26 mmol/L (21-32) 07/17/24 05:30 POC Total CO2 23 mmol/L (24-31) L 07/14/24 03:17 Anion Gap 8 (3-11) 07/17/24 05:30 POC Anion Gap 17.0 mmol/L (16-25) 07/14/24 03:17 POC BUN 25 mg/dl (7-18) H 07/14/24 03:17 BUN 8 mg/dl (6-23) 07/17/24 05:30 Creatinine 0.63 mg/dl (0.6-1.4) 07/17/24 05:30 POC Creatinine 1.0 mg/dl (0.6-1.3) 07/14/24 03:17 Est Cr Clr Drug Dosing 172.6 ml/min 07/17/24 05:30 eGFR 126.42 07/17/24 05:30 BUN/Creatinine Ratio 12.7 (10-20) 07/17/24 05:30 Glucose 84 mg/dl (70-99(Fasting)) 07/17/24 05:30 POC Glucose (other) 145 mg/dl (70-99) H 07/14/24 03:17 Lactate 0.7 mmol/L (0.4-2.0) 07/15/24 09:01 Calcium 8.4 mg/dl (8.6-10.3) L 07/17/24 05:30 POC Ioniz Calcium Melecio 1.09 mmol/l (1.12-1.32) L 07/14/24 03:17 Magnesium 1.8 mg/dl (1.7-2.4) 07/17/24 05:30 Total Bilirubin 0.9 mg/dl (0.2-1.0) 07/14/24 03:14 AST 15 U/L (13-39) 07/14/24 03:14 ALT 10 U/L (7-52) 07/14/24 03:14 Alkaline Phosphatase 46 U/L (34-104) 07/14/24 03:14 Lactate Dehydrogenase 120 U/L (86-244) 07/15/24 09:01 Troponin I High Sens 2.6 pg/ml (0-20) 07/14/24 03:14 Total Protein 6.0 gm/dl (6.0-8.3) 07/14/24 03:14 Albumin 3.9 gm/dl (3.4-5.0) 07/14/24 03:14 Globulin 2.1 gm/dl (2.5-4.0) L 07/14/24 03:14 Albumin/Globulin Ratio 1.9 (0.9-2) 07/14/24 03:14 Lipase 10 U/L (11-82) L 07/14/24 03:14 Urine Color Yellow 07/14/24 03:59 Urine Appearance Clear (Clear) 07/14/24 03:59 Urine pH 6.0 (4.5-7.5) 07/14/24 03:59 Ur Specific [place] 1.038 (1.000-1.030) H 07/14/24 03:59 Urine Protein Trace (Negative) H 07/14/24 03:59 Urine Glucose (UA) Negative (Negative) 07/14/24 03:59 Urine Ketones Negative (Negative) 07/14/24 03:59 Urine Blood Negative (Negative) 07/14/24 03:59 Urine Nitrite Negative (Negative) 07/14/24 03:59 Urine Bilirubin Negative (Negative) 07/14/24 03:59 Urine Urobilinogen Negative (Negative) 07/14/24 03:59 Ur Leukocyte Esterase Negative (Negative) 07/14/24 03:59 Urine WBC (Auto) 0-5 /hpf (0-5) 07/14/24 03:59 Urine RBC (Auto) 11-20 /hpf (0-2) H 07/14/24 03:59 U Hyaline Cast (Auto) 0-2 /lpf (0-2) 07/14/24 03:59 U Epithel Cells (Auto) 0-2 /hpf (0-2) 07/14/24 03:59 Urine Bacteria (Auto) None Seen (None Seen) 07/14/24 03:59 Urine Opiates Screen Neg (Neg) 07/14/24 03:59 Ur Methadone, Qual Neg (Neg) 07/14/24 03:59 Fentanyl Comments SEE NOTE 07/14/24 03:59 Drug Monitor Fentanyl DNR 07/14/24 03:59 Fentanyl Confirmation NEGATIVE ng/mL (<0.5) 07/14/24 03:59 Drug Monitor Norfentanyl DNR 07/14/24 03:59 Urine Fentanyl Screen Pos (Neg) H 07/14/24 03:59 Ur Norfentanyl Confirm NEGATIVE ng/mL (<0.5) 07/14/24 03:59 Urine Barbiturates Neg (Neg) 07/14/24 03:59 Ur Phencyclidine (PCP) Neg (Neg) 07/14/24 03:59 U Amphetamin/Meth Scrn Neg (Neg) 07/14/24 03:59 MDMA (Ecstasy) Screen Neg (Neg) 07/14/24 03:59 U Benzodiazepines Scrn Neg (Neg) 07/14/24 03:59 Ur Cocaine Metabolite Neg (Neg) 07/14/24 03:59 U Marijuana (THC) Screen Neg (Neg) 07/14/24 03:59 Ethyl Alcohol mg/dL < 10.0 mg/dl (<10.0) 07/14/24 03:14 Toxicology Comment SEE NOTE 07/14/24 03:59 Drug Monitor Historic Res DNR 07/14/24 03:59 Adenovirus (PCR) Not Detected (NotDetected) 07/14/24 03:38 B. pertussis DNA (PCR) Not Detected (NotDetected) 07/14/24 03:38 B.parapertussis DNA PCR Not Detected (NotDetected) 07/14/24 03:38 C. pneumoniae DNA (PCR) Not Detected (NotDetected) 07/14/24 03:38 Coronavirus OC43 (PCR) Not Detected (NotDetected) 07/14/24 03:38 Coronavirus HKU1 (PCR) Not Detected (NotDetected) 07/14/24 03:38 Coronavirus 229E (PCR) Not Detected (NotDetected) 07/14/24 03:38 SARS-CoV-2 (PCR) Not Detected (NotDetected) 07/14/24 03:38 Coronavirus NL63 (PCR) Not Detected (NotDetected) 07/14/24 03:38 Human Metapneumovir PCR Not Detected (NotDetected) 07/14/24 03:38 Influenza Type A (PCR) Not Detected (NotDetected) 07/14/24 03:38 Influenza Type B (PCR) Not Detected (NotDetected) 07/14/24 03:38 M. pneumoniae (PCR) Not Detected (NotDetected) 07/14/24 03:38 Parainfluenza 1 (PCR) Not Detected (NotDetected) 07/14/24 03:38 Parainfluenza 2 (PCR) Not Detected (NotDetected) 07/14/24 03:38 Parainfluenza 3 (PCR) Not Detected (NotDetected) 07/14/24 03:38 Parainfluenza 4 (PCR) Not Detected (NotDetected) 07/14/24 03:38 RSV (PCR) Not Detected (NotDetected) 07/14/24 03:38 Entero/Rhino (PCR) Not Detected (NotDetected) 07/14/24 03:38 Impressions Abdomen/Pelvis CT 07/14/24 03:14 Exam(s): CT ABDOMEN + PELVIS With Contrast IV Amt: 93 CC OPTIRAY 320 EXAM: CT Abdomen and Pelvis With Intravenous Contrast CLINICAL HISTORY: Reason for exam: severe pain, hx sbo. TECHNIQUE: Axial computed tomography images of the abdomen and pelvis with intravenous contrast. CTDI is 20.66 mGy and DLP is 1132.08 mGy-cm. Automated exposure control was utilized for the study. A dose lowering technique was utilized adhering to the principles of ALARA. CONTRAST: Patient received 93 CC OPTIRAY 320 of IV contrast COMPARISON: 11/21/22. FINDINGS: Lung bases: Minimal dependent bibasilar subsegmental atelectasis. Mediastinum: Small, sliding hiatal hernia. ABDOMEN: Liver: Unremarkable. No mass. Gallbladder and bile ducts: Unremarkable. No calcified stones. No ductal dilation. Pancreas: Unremarkable. No mass. No ductal dilation. Spleen: Unremarkable. No splenomegaly. Adrenals: Unremarkable. No mass. Kidneys and ureters: Unremarkable. Subcentimeter nonobstructing renal calculi bilaterally. Stomach and bowel: Diverticulosis with mild severity acute diverticulitis in the left lower quadrant associated with a prominent diverticulum and mild mesenteric inflammatory stranding. Midabdominal small bowel anastomotic sutures noted. No significant bowel dilatation or transition point to suggest obstruction, however, there is mild right abdominal small bowel ileus. PELVIS: Appendix: No findings to suggest acute appendicitis. Bladder: Physiologic distention of the urinary bladder. Reproductive: Unremarkable as visualized. ABDOMEN and PELVIS: Intraperitoneal space: Unremarkable. No free air. No significant fluid collection. Bones/joints: No acute fracture. No dislocation. Soft tissues: Small subcutaneous hematoma in the anterior abdominal wall characteristic for injection of medication. Vasculature: Unremarkable. No abdominal aortic aneurysm. Lymph nodes: Multiple, small reactive mesenteric lymph nodes. No pathologic lymph node enlargement. IMPRESSION: 1. No significant bowel dilatation or transition point to suggest obstruction, however, there is mild right abdominal small bowel ileus. Detail limited as no enteric contrast was administered. 2. Diverticulosis with mild severity acute diverticulitis in the left lower quadrant associated with a prominent diverticulum and mild mesenteric inflammatory stranding. No abscess collection or pneumoperitoneum. Electronically signed by: Prudencio Cheek MD 07/14/24 04:20 AM Chest X-Ray 07/14/24 03:14 XR chest 1V portable CLINICAL HISTORY: upper abd pain TECHNIQUE: Single frontal radiograph of the chest was obtained. Comparison: Comparison is made to chest radiograph 07/07/2023 FINDINGS: No lines and tubes are seen. The cardiomediastinal silhouette is normal. The lungs are clear. No evidence of pleural effusion or pneumothorax. IMPRESSION: No acute chest disease. ACT 112: Negative or not required by law. Electronically signed by: Lucho Silva M.D. 07/14/2024 6:48 AM Hospital Course (1) Diverticulitis: 34yo male presenting with progressive abdominal pain and nausea. CT as above with acute diverticulitis with ileus. Patient is afebrile, HD stable at present. Initial concerns for sepsis with hypotension, increased lactate, and tachycardia however vitals normalized and will recheck lactate as patient improves. - CT AP:Diverticulosis with mild severity acute diverticulitis in the left lower quadrant associated with a prominent diverticulum and mild mesenteric inflammatory stranding. No abscess collection or pneumoperitoneum. No significant bowel dilatation or transition point to suggest obstruction, however, there is mild right abdominal small bowel ileus. - Surgery consulted: continue sips of water and ice, can advance to clear diet for dinner if ambulating well, without N,V, abdominal pain - Patients pain well controlled on Tylenol and Morphine PRN -Continue Zosyn abx coverage, will transition to oral abx on d/c -Zofran PRN - Transition patient to clears diet for dinner and see how he tolerates (07/16) - Full diet liquid now, will advance to solids as patient tolerates. - Patient had solids for lunch without N,V, abdominal pain - safe for d/c with continued abx (2) Sepsis: - Patient initially sepsis on presentation to ED - Tachycardic, hypotensive with increased lactate: 2.9 - After pain management, fluids and abx patient quickly improved - current HR: 92, BP: 113/73 and lactate: 0.7 - Patient afebrile with WBC at 8 and in no distress (3) Depression, unspecified: -Continue Sertraline -Continue Hydroxyzine -Continue Abilify Plan F/E/N - LR at 125mL/hr x 1L, electrolytes WNL, NPO for now Ppx - SCDs Code - Full Dispo - Admit to medical Total Time Total Time Spent Total Time Spent (In Minutes): See attending attestation Discharge Plan Discharge Items Patient Disposition: Home - Self-Care Reason For Visit: DIVERTICULITIS Discharge Diagnosis: Diverticulitis Condition on Discharge: Good Activity: Per Instructions section Non-emergency contact: Primary Care Provider Call non-emergency contact if: your pain is not controlled Follow-up/Referrals: Payal Kelly, [Primary Care Provider] - Diet: Regular Addtl Attending Provider Instructions: You were admitted to the hospital for diverticulitis and sepsis. You were treated with piperacillin/tazobactam IV antibiotic regimen and seen by surgery to assess your bowel function and the need for surgery. While in the hospital you quickly improved and were only septic very briefly with increased heart rate, hypotension, fever, and a increased lactate level. On day 1 with nausea medication and antibiotic use your heart rate, blood pressure, and lactate level quickly normalized. After this you continued to have abdominal pain and nausea and this was treated with bowel rest, antibiotics, and nausea medication. Over the next few days we closely monitored your status and carefully advanced your diet to clears, liquids and finally solid foods. Today you have very mild abdominal discomfort with no nausea and have not needed any pain management since yesterday morning. We expect with a short course of home antibiotics you will quickly make a full recovery. A discharge summary will be sent to your primary care physician to ensure rosario nuity of care. Please bring this discharge summary with you to your next office appointment so that your provider can review it at that time. Follow-up appointments: Make a follow-up appointment with your PCP within the next week. It is very important that you follow up with them shortly after discharge from the hospital. Medications: Your medication list has been reviewed and reconciled upon discharge to ensure accuracy and continuity of care. An updated list of all your medications is included with your hospital discharge paperwork. Please review this list closely, and make note of any changes. We sent a new medication called Augmentin to your pharmacy. Take Augmentin 875mg one tablet every 8 hours or 3 times per day for the next 6 days We sent a new medication called Zofran to your pharmacy. Take Zofran 4 mg one tablet as needed every 8 hours for nausea and vomiting. If you have any issues filling these prescriptions, please call [phone] and ask to leave a message for Dr. Jermaine Hauser. Take your medications as instructed; do not skip a dose of your medicines. Make sure all of your doctors know every medicine you are taking (including [id number] medicines, vitamins, and supplements). Call your primary care provider before taking any new medicines (including [id number] medicines, vitamins, and supplements), because some of these may interact with your current medications, or may make your symptoms worse. Tell your primary care provider if you cannot afford your medications. CONTACT YOUR PRIMARY CARE PROVIDER if you experience any of the following: Difficulty following your treatment plan, or difficulty taking medications CALL 911 OR GO TO THE EMERGENCY DEPARTMENT if you experience any of the following: Sudden, severe abdominal pain or nausea/vomiting Severe chest pain, or chest pain that radiates (moves) to your jaw or arm Sudden, severe shortness of breath or difficulty breathing Thank you for allowing us to participate in your care. Pending Studies at Discharge: No Stand-Alone Forms: [facility], Smoking Cessation Medications and DC Order Prescriptions: New amoxicillin-pot clavulanate 875-125 mg tablet 1 tab PO TID Qty: 18 0RF Rx Instructions: Please take one Augmentin 875mg tablet 3 times per day for the next 6 days. Try to space doses out approximately 8 hours apart. Take with food, as taking on an empty stomach could cause GI upset. ondansetron HCl 4 mg tablet 4 mg PO Q8H PRN (Reason: nausea and vomiting) Qty: 30 1RF Rx Instructions: You can take one 4mg Zofran tablet every 8 hours as needed for nausea and vomiting. Continued hydroxyzine HCl 25 mg tablet 50 mg PO BID PRN (Reason: Anxiety) sertraline 100 mg tablet 200 mg PO DAILY 30 Days Qty: 60 0RF Abilify 5 mg tablet 5 mg PO DAILY Discharge Orders: Discharge Order (Routine); Ordered 07/18/24 Ordered By: Jermaine Morfin/Other Patient Handouts: Diverticulitis Dc, Diverticulosis and Diverticulitis Admission Data Admit Date/Time: 07/14/24 05:02 Attending Provider: Elmer Draper Admit Provider: Tejal Cooper Primary Care Provider: Payal Kelly Other Providers: Tejal Cooper; Edith Edmondson; Jared Ladd; Clyde Hernandez; Eugene Hernandez; Ron Hampton; Ness Beasley; Edgardo Nicole; Earnest Alva; Yomaira Valdez; Betsey Ahuja; Dex Miranda Supervising Physician Co-Signing Physician Notes Attending attestation Pt seen and examined in concert with Dr. Hauser. In agreement with the documented findings as noted in the resident documentation with any exceptions or additions as noted here. Reports absence of pain even with full diet for hours following, so comfortable to return home. On examination, S1/S2 nl RRR no MCG. CTAB. Abd NT/ND BS+ve Sepsis in the setting of diverticulitis without abscess complicated by small bowel ileus - general surgery consult - transition to Augmentin 875/125 q8h to complete 10 day course. Ondansetron for nausea. MDD complicated by substance use disorder history - continue sertraline, hydroxyzine, aripiprazole Else see resident documentation as noted. Total attending physician time spent with this patient's care on the day of discharge: 35 minutes. Resident Activity Tracking Resident Involvement: Resident Care Provided Care Provided: Adult Hospital Medicine
== END 2024-07-18 18:12 | disposition home or self-care (01) | DRG 872 ==
LOC: ED 03:06 → SUATTDRO 05:02 → EDINP 05:02 → 3N 05:34

== ENCOUNTER 2024-10-08 19:14 | Inpatient (IN) ==
[2024-10-08 20:00] LABS: Basophils # (auto) 0.03 K/uL (0.00-0.20); Basophils % (auto) 0.4 %; Eosinophils # (auto) 0.09 K/uL (0.00-0.50); Eosinophils % (auto) 1.1 %; Hemoglobin 14.1 g/dl (14.0-18.0); Immature Granulocytes # (auto) 0.02 K/uL (0.01-0.20); Immature Granulocytes % (auto) 0.2 %; Lymphocytes # (auto) 3.59 K/uL (1.20-3.40); Lymphocytes % (auto) 42.9 %; Mean Corpuscular Hemoglobin 27.4 pg (25.0-34.0); Mean Corpuscular Hgb Conc 34.4 g/dL (32.0-36.0); Mean Corpuscular Volume 79.6 fL (80.0-100.0); Mean Platelet Volume 10.6 fL (9.4-12.4); Monocytes # (auto) 0.59 K/uL (0.11-0.59); Monocytes % (auto) 7.1 %; Neutrophils # (auto) 4.04 K/uL (1.40-6.50); Neutrophils % (auto) 48.3 %; Platelet Count 257 K/uL (130-400); RDW Coefficient of Variation 13.1 % (11.5-14.5); RDW Standard Deviation 37.2 fL (36.4-46.3); Red Blood Count 5.15 M/uL (4.70-6.10); White Blood Count 8.36 K/ul (4.8-10.8)
[2024-10-08 20:09] LABS: Albumin Globulin Ratio 2.2 (0.9-2); Albumin Level 4.6 gm/dl (3.4-5.0); BUN Creatinine Ratio 20.5 (10-20); Bilirubin,Total 0.2 mg/dl (0.2-1.0); Calcium 9.5 mg/dl (8.6-10.3); Creatinine Clr Calc Pharmacy 130.6 ml/min; Globulin 2.1 gm/dl (2.5-4.0); Potassium 4.2 mmol/L (3.5-5.1); Total Protein 6.7 gm/dl (6.0-8.3)
[2024-10-08 20:10] LABS: Acetaminophen < 3 ug/ml (10-30); Salicylate < 3.0 mg/dl (3.0-30)
[2024-10-08 20:18] LABS: Appearance Urine Clear (Clear); Bilirubin Urine Negative (Negative); Blood Urine Negative (Negative); Color Urine Yellow; Glucose Urine UA Negative (Negative); Ketones Urine Negative (Negative); Leukocyte Esterase Urine Negative (Negative); Nitrite Urine Negative (Negative); Protein Urine Negative (Negative); Specific Gravity Urine 1.003 (1.000-1.030); Urobilinogen Urine Negative (Negative); pH Urine 6.5 (4.5-7.5)
[2024-10-08 20:24] LABS: Thyroid Stimulating Hormone 3.853 uIu/ml (0.300-4.500)
--- NOTE | 2024-10-08 20:27 | Emergency Department Note ---
Impression & Plan Depression, Suicidal ideation ED Provider Note HISTORY OF PRESENT ILLNESS: Patient is a 34-year-old male presenting with severe depression and suicidal ideation. Patient reports that he has been having worsening depression over the last month or so. He states that he is suicidal without a plan to kill himself. He states that his suicidal ideation is becoming more persistent and he has been having thoughts on ways he would end his life. He is never attempted suicide before. Denies any homicidal ideation. Denies any auditory visual hallucinations. Patient has been admitted for inpatient psychiatric treatment in the past. He states that he is normally supposed to be on Zoloft and Abilify, but states that he lost his medical insurance earlier in the year and has been off of his Abilify and he thinks that may be exacerbating his symptoms. ROS: as above PHYSICAL EXAM: Constitutional: Patient appears in no acute distress. HENT: Head: Normocephalic and atraumatic. Eyes: EOMI, PERRL Mouth/Throat: Mucous membranes moist. Neck: Trachea midline. Neck supple. Musculoskeletal: No edema, tenderness or deformity noted. Skin: Warm and dry. No rash, erythema, pallor or cyanosis Psychiatric: Appropriate mood and affect for situation. Neurological: Alert and keenly responsive. CN II-XII grossly intact, moving all extremities equally and fully. MDM: - Vitals signs showed tachycardia. - History obtained via patient. History as above. - Chronic conditions affecting care: depression; OCD - Differential diagnoses include, but are not limited to: depression; alcohol intoxication; drug intoxication; UTI - External medical records reviewed. Discharge summary dated 07/18/2024 was reviewed. Patient was admitted for diverticulitis. - Laboratory workup interpreted by myself showed normal WBC; stable electrolytes; normal TSH; negative alcohol; negative salicylate/acetaminophen levels - COVID negative - UDS negative - UA negative for infection - Patient given a nicotine patch while in the emergency department. - Patient medically cleared for inpatient psychiatric care. He was seen in conjunction with behavioral health rn case management and signed a 201. Referrals for inpatient psychiatric admission have been sent. - Prior to disposition, care of patient was checked out to Dr. Vasquez following a discussion of the patient's course. ASSESSMENT AND PLAN: Diagnosis: depression; suicidal ideation Past Med/Surg History Problem List (Updated 10/08/24 @ 23:40 by Lilliana Caballero MD) Suicidal ideation (Acute) Depression (Acute) Diverticulitis (Acute) Alcohol use disorder Obsessive compulsive disorder Polysubstance dependence Medical History (Updated 10/08/24 @ 23:40 by Lilliana Caballero MD) Sepsis Ileus Depression, unspecified Fever Hypoxia Mycoplasma pneumoniae pneumonia Community acquired pneumonia TANIYA (acute kidney injury) Alcohol use Depression with suicidal ideation Substance use Suicidal ideation Respiratory failure Current every day vaping Acute respiratory failure with hypoxia Histrionic personality disorder Borderline personality disorder Pilar cyst Polysubstance overdose Toxic effect of isopropanol No pertinent family history Meckel's diverticulum perforation Bowel obstruction Surgical History No pertinent past surgical history H/O right inguinal hernia repair History of appendectomy Social History Smoking Status: Current every day smoker Tobacco Type: E-cigarettes / Vaping Do You Dip or Chew Tobacco: No; Hx Alcohol Use: No Hx Substance Use: No Preferred Language: Hungarian Communication Ability: Effective Electric 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 Required: No Beliefs That Will Affect Care: None Current Living Situation: Alone Current Living Situation Comment: apartment with girlfriend Feels Safe at Home: Yes Gender Identity: Male Assistive Devices: None Allergies Allergies Allergy/AdvReac Type Severity Reaction Status Date / Time No Known Allergies Allergy Verified 07/07/23 20:23 Home Meds Home Medications Medication Instructions Recorded Confirmed hydroxyzine HCl 25 mg tablet 50 mg PO BID PRN Anxiety 07/07/23 10/08/24 buprenorphine 8 mg-naloxone 2 mg 2 film sublingual QID 10/08/24 10/08/24 sublingual film gabapentin 300 mg capsule 300 mg PO TID 10/08/24 10/08/24 sertraline 100 mg tablet 200 mg PO QPM OCD 10/08/24 10/08/24 Previous Rx's Medication Instructions Recorded ondansetron HCl 4 mg tablet 4 mg PO Q8H PRN nausea and 07/18/24 vomiting #30 tabs Results & Data (ED) Vital Signs Vital Signs - 24 hr 10/08/24 19:20 10/08/24 21:00 Temperature 36.4 C L Temperature Source Temporal Artery Scan Pulse Rate 101 H Pulse Rate [Finger] 91 H Pulse Rhythm Regular Pulse Strength Normal Respiratory Rate 18 20 Respiratory Effort / Characteristics Non-Labored Spontaneous Respiratory Depth Normal Respiratory Pattern Regular Blood Pressure [Left Arm] 129/81 Blood Pressure Mean [Left Arm] 97 Blood Pressure Position Sitting Blood Pressure Position [Left Arm] Lying Pulse Oximetry 93 96 Oxygen Delivery Method Room Air Room Air Sepsis Recent Fever Within 48 Hours No Sepsis New/Unexplained Change in Mental Status N/A Sepsis Action Taken by Nursing No Action Required Laboratory Data 10/08/24 19:35 10/08/24 19:35 Lab Results 10/08/24 Range/Units 19:35 WBC 8.36 (4.8-10.8) K/ul RBC 5.15 (4.70-6.10) M/uL Hgb 14.1 (14.0-18.0) g/dl Hct 41.0 L (42.0-52.0) % MCV 79.6 L (80.0-100.0) fL MCH 27.4 (25.0-34.0) pg MCHC 34.4 (32.0-36.0) g/dL RDW Std Deviation 37.2 (36.4-46.3) fL RDW Coeff of Mary 13.1 (11.5-14.5) % Plt Count 257 (130-400) K/uL MPV 10.6 (9.4-12.4) fL Immature Gran % (Auto) 0.2 % Neut % (Auto) 48.3 % Lymph % (Auto) 42.9 % [place] % (Auto) 7.1 % Eos % (Auto) 1.1 % Baso % (Auto) 0.4 % Neut # (Auto) 4.04 (1.40-6.50) K/uL Lymph # (Auto) 3.59 H (1.20-3.40) K/uL [place] # (Auto) 0.59 (0.11-0.59) K/uL Eos # (Auto) 0.09 (0.00-0.50) K/uL Baso # (Auto) 0.03 (0.00-0.20) K/uL Immature Gran # (Auto) 0.02 (0.01-0.20) K/uL Sodium 139 (136-145) mmol/L Potassium 4.2 (3.5-5.1) mmol/L Chloride 105 (98-107) mmol/L Carbon Dioxide 27 (21-32) mmol/L Anion Gap 7 (3-11) BUN 17 (6-23) mg/dl Creatinine 0.83 (0.6-1.4) mg/dl Est Cr Clr Drug Dosing 130.6 ml/min eGFR 116.32 BUN/Creatinine Ratio 20.5 H (10-20) Glucose 94 (70-99(Fasting)) mg/dl Calcium 9.5 (8.6-10.3) mg/dl Total Bilirubin 0.2 (0.2-1.0) mg/dl AST 17 (13-39) U/L ALT 12 (7-52) U/L Alkaline Phosphatase 53 (34-104) U/L Total Protein 6.7 (6.0-8.3) gm/dl Albumin 4.6 (3.4-5.0) gm/dl Globulin 2.1 L (2.5-4.0) gm/dl Albumin/Globulin Ratio 2.2 H (0.9-2) TSH 3.853 (0.300-4.500) uIu/ml Urine Color Yellow Urine Appearance Clear (Clear) Urine pH 6.5 (4.5-7.5) Ur Specific [place] 1.003 (1.000-1.030) Urine Protein Negative (Negative) Urine Glucose (UA) Negative (Negative) Urine Ketones Negative (Negative) Urine Blood Negative (Negative) Urine Nitrite Negative (Negative) Urine Bilirubin Negative (Negative) Urine Urobilinogen Negative (Negative) Ur Leukocyte Esterase Negative (Negative) Salicylates < 3.0 L (3.0-30) mg/dl Urine Opiates Screen Neg (Neg) Ur Methadone, Qual Neg (Neg) Urine Fentanyl Screen Neg (Neg) Acetaminophen < 3 L (10-30) ug/ml Urine Barbiturates Neg (Neg) Ur Phencyclidine (PCP) Neg (Neg) U Amphetamin/Meth Scrn Neg (Neg) MDMA (Ecstasy) Screen Neg (Neg) U Benzodiazepines Scrn Neg (Neg) Ur Cocaine Metabolite Neg (Neg) U Marijuana (THC) Screen Neg (Neg) Ethyl Alcohol mg/dL < 10.0 (<10.0) mg/dl SARS-CoV-2, RNA, NAAT NEGATIVE (NEGATIVE) Administered Medications Discontinued Medications Nicotine (Nicotine 14 Mg/24 Hr Patch) 1 patch TD NOW STA Stop: 10/08/24 21:26 Last Admin: 10/08/24 21:28 Dose: 1 patch Documented By: FERMIN Discharge Plan Visit Data Chief Complaint: Mental Health Evaluation Stated Complaint: MHE ED Provider: Lilliana Caballero Discharge Problem: Depression, Suicidal ideation Patient Disposition: Still a Patient Forms Stand Alone Forms: [facility], Suicide Prevention Resources Prescriptions Prescriptions: No Action hydroxyzine HCl 25 mg tablet 50 mg PO BID PRN (Reason: Anxiety) ondansetron HCl 4 mg tablet 4 mg PO Q8H PRN (Reason: nausea and vomiting) Qty: 30 1RF Rx Instructions: You can take one 4mg Zofran tablet every 8 hours as needed for nausea and vomiting. gabapentin 300 mg capsule 300 mg PO TID buprenorphine-naloxone 8-2 mg film 2 film sublingual QID sertraline 100 mg tablet 200 mg PO QPM Referrals Referrals: Payal Kelly DO [Primary Care Provider] -
[2024-10-08 20:45] LABS: Amphetamines+Metham, Urine Neg (Neg); Barbiturates, Urine Neg (Neg); Benzodiazepine, Urine Neg (Neg); Cocaine, Urine Neg (Neg); Fentanyl, Urine Neg (Neg); MDMA (Ecstacy), Urine Neg (Neg); Marijuana, Urine Neg (Neg); Methadone, Urine Neg (Neg); Opiate, Urine Neg (Neg); Phencyclidine, Urine Neg (Neg)
[2024-10-08] MEDS ORDERED: NICOTINE 14 MG/24 HR PATCH TD STA (20:54)
[2024-10-08] MEDS: NICOTINE 14 MG/24 HR PATCH TD STA (21:28)
--- OUTSIDE RECORDS SUMMARY | 2024-10-08 23:46 | External Medical Summary | Summary of Care ---
Author Name Unknown Organization [facility] Address [address] [place] [address] Phone [phone] Care Team Providers Care Cream Maker Name Role Phone Payal Kelly DO Primary Car e Provider Encounter Details Date Type Department Care Team (Late st Contact Info) Description 07/16/2024 Population Health External Data Unspecified Department Allergies No known active allergiesdocumented as of this encounter (statuses as of 07/16/2024) Medications Medication Sig Dispensed Refills Start Date End Date Status Amoxicillin-Pot Clavulanate 875-125 MG Oral TabletIndications:Acut e non-recurrent pansinusitis Take by mouth 1 Tablet in the morning AND 1 Tablet before bedtime. With food. Until gone.. 20 Tablet 01/05/2022 Active documented as of this encounter (statuses as of 07/16/2024) Social History Tobacco Use Types Packs/Day Years Used Date Smoking Tobacco: Every Day Cigarettes 0.5 24.8 Started: 1999 Smokeless Tobacco: Never Alcohol Use [...] money to get more. Never true 07/15/2023 Childcare Answer Date Recorded Do you feel overwhelmed with taking care of a child, family member or friend? Yes 07/15/2023 Does your family need help f inding childcare? (Household - for ages 0-17 years) Not on file 07/15/2023 Clothing Answer Date Recorded Have you been unable to get clothing when it was really needed? No 07/15/2023 Is your family able to get c lothes or diapers when needed? (Household - for ages 0-17 years) Not on file 07/15/2023 Personal Safety Answer Date Recorded Do you feel unsafe or have concerns for your saf ety? No 07/15/2023 Do you have concerns for you r family's safety? (Household - for ages 0-17 years) Not on file 07/15/2023 Utilities Answer Date Recorded Do you have trouble paying y our heating, water, or electric bill? (Adult - for ages 18 years and over) Not on file 07/16/2024 Is your family able to pay t he heat, water, or electric bill? (Household - for ages 0-17 years) Not on file 07/16/2024 Does your family have access to good internet? (Household - for ages 0-17 years) Not on file 07/16/2024 Employment Status Answer Date Recorded Are you unemployed or without regular income? No 07/15/2023 Does the household have a [facility] source of income? (Household - for ages 0-17 years) Not on file 07/15/2023 Social Connections Answer Date Recorded How often do you feel lonely or isolated from those around you? (Adult - for ages 18 years and over) Not on file 07/16/2024 Financial Resource Strain Answer Date R ecorded Do you have any trouble payi ng for your medications, or do you think you might in the future? No 07/15/2023 Does your family have troubl e paying for medicine? (Household - for ages 0-17 years) Not on file 07/15/2023 Transportation Needs Answer Date Record ed READ ONLY Do you have troubl e getting a ride to medical visits or work? Never True 07/15/2023 Does your family have a hard time getting a ride to doctors visits? (Household - for ages 0-17 years) Not on file 07/15/2023 Has lack of transportation k ept you from medical appointments, meetings, work, or from getting things needed for daily living? Check all that apply. (Adult - for ages 18 years and over) Not on file 07/15/2023 Do you (or your family) have trouble finding or paying for a ride (transportation)? (Household - for ages 0-17 years) Not on file 07/15/2023 Housing Stability Answer Date Recorded Do you currently live in a s helter or have no steady place to sleep at night? No 07/15/2023 READ ONLY Do you think you a re at risk of becoming homeless? No 07/15/2023 Does your family worry about paying for your home or becoming homeless? (Household - for ages 0-17 years) Not on file 1 Are you homeless or worried that you might be in the future? (Adult - for ages 18 years and over) Not on file Are you (or your family) therese eless or worried that you might be in the future? (Household - for ages 0-17 years) Not on file Food Insecurity Answer Date Recorded Do you need food for this week? No 07/15/2023 Are you able to get enough f ood for your family? (Household - for ages 0-17 years) Not on file 07/15/2023 Does your family need food t his week? (Household - for ages 0-17 years) Not on file 07/15/2023 Do you always have enough fo od for your family? (Household - for ages 0-17 years) Not on file 07/15/2023 Sex and Gender Information Value Date Recorded Sex Assigned at Male 04/30/2024 10:05 AM EDT Gender Identity Male 04/30/2024 10:05 AM EDT Sexual Orientation Straight 04/30/2024 10 :05 AM EDT Job Start Date Occupation Industry Not on file Not on file Not on file documented as of this encounter Plan of Treatment Health Maintenance Due Date Last Done Comments Pneumococcal Vaccine: Pediatrics (0 to 5 Years) and At-Risk Patients (6 to 64 Years) (1 of 2 - PCV) 1994 Depression Screening 2000 HIV Screening 2003 Hepatitis C Screening 2006 DTap/Tdap Vaccines (1 - Tdap) 2007 Hepatitis B Vaccine (1 of 3 - 19+ 3-dose series) 2007 COVID-19 Vaccine (2023-2 5 season) 2024 08/22/2021, 01/30/2021, 12/28/2020 Influenza Vaccine (FLU shot) (#1) 2024 08/11/2023, 07/17/2021, 10/18/2020 HPV (Gardasil) Vaccine Aged Out No lo nger eligible based on patient's age to complete this topic MENINGOCOCCAL (MENACTRA/MENVEO) Aged Out No longer eligible b ased on patient's age to complete this topic documented as of this encounter Medical Devices Not on filedocumented as of this encounter Care Teams Cream Maker Relationship Specialty Start Date End Date Payal Kelly DO [address] [place] [address] PCP - General Family Medicine 01/05/22 documented as of this encounter
--- OUTSIDE RECORDS SUMMARY | 2024-10-08 23:46 | External Medical Summary | Summary of Care ---
Author Name Unknown Organization [facility] Address [address] [place] [address] Phone [phone] Care Team Providers Care Security Solutions Engineer Name Role Phone Payal Kelly DO Primary Car e Provider Encounter Details Date Type Department Care Team (Late st Contact Info) Description 10/04/2024 Population Health External Data Unspecified Department Allergies No known active allergiesdocumented as of this encounter (statuses as of 10/04/2024) Medications Amoxicillin-Pot Clavulanate 875-125 MG Oral TabletIndications :Acute non-recurrent pansinusitis Take by mouth 1 Tablet in the morning AND 1 Tablet before bedtime. With food. Until gone.. 20 Tablet 2 Active documented as of this encounter (statuses as of 10/04/2024) Social History Tobacco Use Types Packs/Day Years Used Date Smoking Tobacco: Every Day Cigarettes 0.5 25.1 Started: 1999 Smokeless Tobacco: Never Alcohol Use Standard Drinks/Week Comments Not Currently 0 (1 standard drink = 0.6 oz pur e alcohol) Hunger Vital Sign Answer Date Recorded Within the past 12 months, y ou worried that your food would run out before you got the money to buy more. Never true 07/15/20 Within the past 12 months, t he [...] No 07/15/2023 Does the household have a [facility] cancer center[facility] source of income? (Household - for ages [...] Assigned at Male 04/30/2024 10:05 AM EDT Legal Sex Male 9:08 AM EST Gender Identity Male 04/30/2024 10:05 AM EDT Sexual Orientation Straight 04/30/2024 10 :05 AM EDT documented as of this encounter Plan of Treatment Health Maintenance Due Date Last Done Comments Depression Screening 2000 HIV Screening 2003 Hepatitis C Screening 2006 DTap/Tdap Vaccines (1 - Tdap) 2007 Hepatitis B Vaccine (1 of 3 - 19+ 3-dose series) 2007 Pneumococcal Vaccine: Pediatrics (0 to 5 Years) and At-Risk Patients (6 to 18 Years and 19+ Years) (1 of 2 - PCV) 2007 COVID-19 Vaccine (4 - 2023-2 5 season) 2024 08/22/2021, 01/30/2021, 12/28/2020 Influenza [...] filedocumented as of this encounter Care Teams Security Solutions Engineer Relationship Specialty Start Date End Date Payal Kelly DO [address] [place] [address] PCP - General Family Medicine 01/05/22 documented as of this encounter
--- NOTE | 2024-10-09 00:42 | Emergency Department Note ---
ED Visit Note Date and Time: 10/08/2024 0020 Interval History: Sign out received from Dr. Caballero who reviewed details of the encounter. Patient was pending admission for inpatient psychiatric care. Summary: patient was willing to admit himself voluntarily for increasing depression and suicidal ideation. Patient was evaluated by [facility]. They have accepted him to their Unit. .
[2024-10-09] MEDS ORDERED: SODIUM CHLORIDE 0.65% NA SOLN 45 ML (OCEAN) PRN (01:59)
[2024-10-09] MEDS ORDERED: hydrOXYzine HCl 25 MG TAB PO PRN ×2 (01:59)
[2024-10-09] MEDS ORDERED: BISMUTH SUBSALICYLATE 262 MG CHEW PO PRN (01:59)
[2024-10-09] MEDS ORDERED: MAGNESIUM HYDROXIDE SUSP 30 ML UDC PO PRN (01:59)
[2024-10-09] MEDS ORDERED: ALUMINUM/MAGNESIUM SUSP 30 ML UDC PO PRN (01:59)
[2024-10-09 04:11] VITALS: O2SAT 98
[2024-10-09 06:38] VITALS: RESP 16
[2024-10-09] MEDS: BUPRENORPHINE/NALOXONE 8/2 MG TAB SL ONE (10:37)
[2024-10-09] MEDS: NICOTINE 14 MG/24 HR PATCH TD SCH (10:37)
[2024-10-09] MEDS: SERTRALINE HCL 100 MG TABLET PO SCH (11:31)
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
[2024-10-09] MEDS: GABAPENTIN 300 MG CAP PO SCH (14:42)
[2024-10-09] MEDS: BUPRENORPHINE/NALOXONE 8/2 MG TAB SL SCH (14:42)
[2024-10-09] MEDS: INFLUENZA VACC TS2024-25(6m+)/PF (IIV3) 0.5mL Syr IM ONE (14:42)
[2024-10-09] MEDS: NICOTINE POLACRILEX 2 MG GUM MT PRN (21:01)
[2024-10-09] MEDS: ACETAMINOPHEN 325 MG TAB PO PRN (22:46)
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
[2024-10-11] MEDS: SERTRALINE HCL 50 MG TABLET PO SCH (09:01)
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
[2024-10-11] MEDS: hydrOXYzine HCl 25 MG TAB PO PRN (18:21)
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
[2024-10-12] MEDS: buPROPion XL 150 MG TABCR PO SCH (11:43)
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
[2024-10-14 06:35] VITALS: BP 118/78; PULSE 72; TEMP 97.5
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
== END 2024-10-14 10:41 | disposition home or self-care (01) | DRG 881 ==
LOC: ED 19:14 → 3S 10-09 01:36